=== PATIENT | male | born 1935 | race Caucasian/White ===

== ENCOUNTER 2020-01-26 12:49 | Inpatient (IN) | payer MEDICARE, BC, OTHER ==
[2020-01-26] MEDS ORDERED: Haloperidol Lactate 5 MG/ML VIAL ONE (13:29)
[2020-01-26] MEDS ORDERED: Lorazepam 2 MG/ML VIAL ONE (13:29)
[2020-01-26 14:10] LABS: #Eosinphils 0.1 thou/uL (0.0-0.7); #Lymphocytes 1.3 thou/uL (1.20-3.40); #Neutrophils 8.3 thou/uL (1.40-6.50); %Basophils 0.2 % (0.0-1.0); %Eosinophils 0.6 % (0.0-10.0); %Lymphocytes 12.5 % (21.0-51.0); %Monocytes 8.9 % (0.0-10.0); %Neutrophils 77.8 % (42.0-75.0); Hemoglobin 14.4 g/dL (14.0-18.0); Mean Corpuscular HGB CONC 35.5 g/dL (32.0-36.0); Mean Corpuscular Volume 90.3 fL (78.0-98.0); Mean Platelet Volume 7.8 fL (7.4-10.4); Platelet Count 128 thou/uL (130-400); RBC Distribution Width 11.2 % (11.5-14.5); White Blood Cell (WBC) Count 10.7 thou/uL (4.8-10.8)
--- NOTE | 2020-01-26 14:17 | CT ---
EXAM: CT brain without contrast HISTORY: Fall with altered mental status COMPARISON: 08/03/2016; MRI brain 08/03/2016 TECHNIQUE: Multiple contiguous axial images were obtained and a CT of the brain without contrast. FINDINGS: The brain is normal in morphology and attenuation without focal lesions or confluent areas of infarction. There is no evidence of hydrocephalus, intracranial hemorrhage, or extra-axial fluid collection. The calvarium and overlying soft tissues are unremarkable. The visualized paranasal sinuses and masto id air cells are well aerated. IMPRESSION: No evidence of acute intracranial abnormality
[2020-01-26 14:22] LABS: ALT (SGPT) 20 U/L (8-55); AST (SGOT) 29 U/L (5-34); Alkaline Phosphatase 71 U/L (40-110); Anion Gap 17 mmol/L (10-20); BUN (Urea Nitrogen) 26 mg/dL (8.4-25.7); Bilirubin, Total 1.7 mg/dL (0.2-1.2); CK (CPK) 522 U/L (30-200); Calc. Creatinine Clearance 0 mL/min (70-130); Calcium 9.6 mg/dL (7.8-10.44); Carbon Dioxide 19 mmol/L (23-31); Chloride 108 mmol/L (98-107); Estimated GFR-MDRD 79; Globulin 3.1 g/dL (2.4-3.5); Glucose 102 mg/dL (83-110); Lipase 18 U/L (8-78); Potassium 3.7 mmol/L (3.5-5.1); Protein, Total 7.1 g/dL (5.8-8.1); Sodium 140 mmol/L (136-145)
[2020-01-26] MEDS ORDERED: levETIRAcetam in NS 100 ML ONE (14:28)
[2020-01-26 14:48] LABS: CKMB 10.3 ng/mL (0-6.6)
--- NOTE | 2020-01-26 14:49 | RAD ---
Exam: XR Knee Lt 4 View STANDARD HISTORY: Trauma COMPARISON: Trauma FINDINGS: No acute fracture, dislocation, or other acute osseous abnormality is identified. There is a trace suprapatellar joint effusion likely physiologic in origin. Vascular calcifications are seen posterior to the knee. IMPRESSION: No acute osseous abnormality is identified.
--- NOTE | 2020-01-26 14:55 | RAD ---
EXAM: 2 views of the left hip HISTORY: Left hip pain after trauma COMPARISON: None FINDINGS: 2 views of the left hip shows no evidence of acute fracture or dislocation. No degenerative changes are seen. No soft tissue swelling is present. IMPRESSION: No evidence of acute osseous abnormality.
--- NOTE | 2020-01-26 14:55 | RAD ---
EXAM: 4 views of the right knee HISTORY: Knee pain COMPARISON: None FINDINGS: No knee effusion is seen. There is no evidence of acute fracture or dislocation. No signifi cant degenerative changes are seen. No soft tissue swelling is present. IMPRESSION: No evidence of acute osseous abnormality.
--- NOTE | 2020-01-26 14:57 | RAD ---
Exam: Single view of the pelvis HISTORY: Pelvic and hip pain after trauma COMPARISON: None FINDINGS: A single view the pelvis shows an area of lucency along the superior and inferior pubic marycruz i on the right which could represent nondisplaced fractures. No degenerative changes seen in either hip. IMPRESSION: Questionable right superior and inferior pubic rami fracture
--- NOTE | 2020-01-26 14:58 | RAD ---
EXAM: 2 views of the right hip HISTORY: Right hip pain after trauma COMPARISON: None FINDINGS: 2 views of the right hip shows lucencies extending through the right superior and inferior pubic rami consistent with acute fractures. No fracture of the right femur is seen. No degenerative changes are seen. No soft tissue swelling is present. IMPRESSION: Right superior and inferior pubic rami fractures
--- NOTE | 2020-01-26 15:00 | RAD ---
XR Chest 1 View Portable HISTORY: Altered mental status COMPARISON: 08/03/2016 FINDINGS: The heart size is normal. The aorta is tortuous. The lungs are well expanded without focal areas of consolidation, pneumothorax or pleural effusions. IMPRESSION: No radiographic evidence of acute cardiopulmonary process.
[2020-01-26] MEDS ORDERED: Morphine 4 MG/ML VIAL ONE (15:24)
[2020-01-26] MEDS ORDERED: Heparin 1,000 UNITS/ML VIAL ONE (16:09)
--- NOTE | 2020-01-26 16:21 | PDOC.HHP ---
Hospitalist HPI - History of Present Illness Altered mental status History of Present Illness: This is an 84-year-old male patient with a history of hypertension, hyperlipidemia, migraine headaches, hearing loss who was brought in by his on account of worsening mental state and frequent falls. On arrival his blood pressure was 131/64, pulse 57, oxygen saturation 100 on room air, temperature 98.2. It was noted that he had 2 episodes of witnessed seizure activity tonic-clonic in the bed for which she was given Keppra and Ativan. Postictally though he is not been communicative. His labs showed troponin of 0.038, CK was 522, BMP showed sodium 140, potassium 3.7, creatinine 0.92. Ammonia was checked was 23. CT scan of his head without contrast showed no evidence of acute intracranial process. Chest x-ray showed no acute cardial pulmonary process, x-ray of his hip revealed a right superior and inferior pubic rami fractures. He was given morphine and Haldol on account of agitation. Also received Ativan and 1 L IV fluids normal saline Orthopedic surgery was consulted for this fracture, neurology for his seizures and mental state. Hospitalist team was consulted to admit patient for Hospitalist ROS - Review of Systems ROS unobtainable: due to mental status Hospitalist History - Past Medical History Cardiac: reports: HTN DIRECTOR WOMEN: reports: Dementia - Family History Family History: reports: diabetes mellitus - Social History Smoking Status: Never smoker Alcohol: reports: None Living Situation: With Family - Exam General Appearance: ill appearing General - other findings: Patient in bed, no acute distress. Quite drowsy ENT: normocephalic atraumatic, no oropharyngeal lesions Neck: symmetric, no JVD, no thyromegaly Heart: RRR, no murmur, no gallops, no rubs Respiratory: no wheezes, no rales, no ronchi Gastrointestinal: soft, non-tender, non-distended, normal bowel sounds Extremities: no cyanosis, no clubbing, no edema Neurological - other findings: Hearing loss, spontaneously moves all limbs Psychiatric - other findings: Hard of hearing. Unable to assess orientation Hospitalist Results - Labs Result Diagrams: 01/26/20 13:25 01/26/20 13:25 Lab results: WBC 10.7 thou/uL (4.8-10.8) 01/26/20 13:25 Hgb 14.4 g/dL (14.0-18.0) 01/26/20 13:25 Hct 40.7 % (42.0-52.0) L 01/26/20 13:25 MCV 90.3 fL (78.0-98.0) 01/26/20 13:25 Plt Count 128 thou/uL (130-400) L 01/26/20 13:25 Neutrophils % 77.8 % (42.0-75.0) H 01/26/20 13:25 Sodium 140 mmol/L (136-145) 01/26/20 13:25 Potassium 3.7 mmol/L (3.5-5.1) 01/26/20 13:25 Chloride 108 mmol/L (98-107) H 01/26/20 13:25 Carbon Dioxide 19 mmol/L (23-31) L 01/26/20 13:25 BUN 26 mg/dL (8.4-25.7) H 01/26/20 13:25 Creatinine 0.92 mg/dL (0.7-1.3) 01/26/20 13:25 Glucose 102 mg/dL (83-110) 01/26/20 13:25 Calcium 9.6 mg/dL (7.8-10.44) 01/26/20 13:25 Total Bilirubin 1.7 mg/dL (0.2-1.2) H 01/26/20 13:25 AST 29 U/L (5-34) 01/26/20 13:25 ALT 20 U/L (8-55) 01/26/20 13:25 Alkaline Phosphatase 71 U/L (40-110) 01/26/20 13:25 Ammonia 26 umol/L (18-72) 01/26/20 13:25 Creatine Kinase 522 U/L (30-200) H 01/26/20 13:25 CK-MB (CK-2) 10.3 ng/mL (0-6.6) H* 01/26/20 13:25 Troponin I 0.038 ng/mL (< 0.028) H 01/26/20 13:25 B-Natriuretic Peptide 76.5 pg/mL (0-100) 01/26/20 13:25 Serum Total Protein 7.1 g/dL (5.8-8.1) 01/26/20 13:25 Albumin 4.0 g/dL (3.4-4.8) 01/26/20 13:25 Lipase 18 U/L (8-78) 01/26/20 13:25 Hospitalist H&P A/P - Plan Plan: This is an 84-year-old male patient with a history of hypertension, worsening dementia and recent falls who presented with deteriorating mental status. Acute encephalopathy Unclear etiologyworsening dementia, traumatic brain injury from fall, seizure activity. We will admit to medical floor and monitor Treat potential underlying causes Will do UA to rule out UTI Urine drug screen to rule out any clots B12 TSH ordered CT scan was negative Neurology consulted Seizure activity Unlikely with a new subtle recent trauma related. We will continue on Keppra Will need EEG Bedrest, neurochecks MRI Neuro consulted Pelvic fracture Secondary to fall Orthopedics consulted. Worsening dementia Possible Parkinson's/Alzheimer's Appreciate neurology input. CODE STATUSDNR VT prophylaxisSCD
[2020-01-26 17:45] LABS: Thyroid Stimulating Hormone 2.3213 uIU/mL (0.35-4.94)
[2020-01-26] MEDS ORDERED: levETIRAcetam in NS 1,000 MG in Premix Bag 1 BAG IVPB SCH (21:00)
[2020-01-26 21:47] LABS: Bacteria/HPF None Seen HPF (None Seen); Bilirubin Negative (Negative); Blood, Urine Trace (Negative); Clarity Clear (Clear); Glucose, Urine (Dipstick) Normal (Negative); Ketone, Urine 10 mg/dL (Negative); Leukocyte Negative Leu/uL (Negative); Nitrite Negative (Negative); Protein, Urine (Dipstick) Negative (Neg-Trace); RBC/HPF 0-3 HPF (0-3); Specific Gravity, Urine 1.019 (1.002-1.036); Squamous Epithelial None Seen HPF (0-3); Urobilinogen Normal mg/dL (Less than 2); WBC/HPF 0-3 HPF (0-3)
[2020-01-26 21:51] LABS: Urine Culture Reflex No No
[2020-01-26 21:54] LABS: Medtox Reader # READER 4
[2020-01-26 21:55] LABS: Amphetamine Not Detected (NotDetected); Barbiturates Screen Not Detected (NotDetected); Benzodiazepine Screen Detected (NotDetected); Cocaine Metabolite Screen Not Detected (NotDetected); Medtox Control Line Valid? VALID (VALID); Methadone Not Detected (NotDetected); Methamphetamine Not Detected (NotDetected); Opiate Screen Detected (NotDetected); Oxycodone Screen Not Detected (NotDetected); Phencyclidine (PCP) Not Detected (NotDetected); THC/Cannabinoid Screen Not Detected (NotDetected); Tricyclic Screen Not Detected (NotDetected)
[2020-01-27] MEDS ORDERED: Ketorolac Tromethamine 30 MG/ML VIAL IVP SCH (01:15)
[2020-01-27] MEDS: levETIRAcetam in NS 1,000 MG in Premix Bag 1 BAG IVPB SCH ×2 (01:28→15:01)
[2020-01-27] MEDS: Morphine 2 MG/ML VIAL SLOW IVP PRN ×3 (02:36→22:11)
[2020-01-27 05:29] LABS: Band 14 % (5-11); Eosinophils 1 % (0-10); Hemoglobin 12.7 g/dL (14.0-18.0); Lymphocytes 13 % (21-51); MDiff Complete? YES; Mean Corpuscular HGB CONC 34.3 g/dL (32.0-36.0); Mean Corpuscular Hemoglobin 31.2 pg (27.0-31.0); Mean Corpuscular Volume 90.9 fL (78.0-98.0); Mean Platelet Volume 8.3 fL (7.4-10.4); Monocytes 11 % (0-10); Neutrophil 61 % (42-75); Platelet Count 109 thou/uL (130-400); Platelet Morphology Comment Appears Decreased; RBC Distribution Width 11.1 % (11.5-14.5); Red Blood Cell (RBC) Count 4.07 mill/uL (4.70-6.10); White Blood Cell (WBC) Count 10.5 thou/uL (4.8-10.8)
[2020-01-27 05:35] LABS: ALT (SGPT) 17 U/L (8-55); AST (SGOT) 31 U/L (5-34); Albumin 3.2 g/dL (3.4-4.8); Alkaline Phosphatase 59 U/L (40-110); Anion Gap 12 mmol/L (10-20); BUN (Urea Nitrogen) 20 mg/dL (8.4-25.7); Bilirubin, Total 0.9 mg/dL (0.2-1.2); Calc. Creatinine Clearance 62 mL/min (70-130); Calcium 8.6 mg/dL (7.8-10.44); Carbon Dioxide 18 mmol/L (23-31); Chloride 113 mmol/L (98-107); Estimated GFR-MDRD Greater than 90; Globulin 2.4 g/dL (2.4-3.5); Glucose 84 mg/dL (83-110); Protein, Total 5.6 g/dL (5.8-8.1); Sodium 139 mmol/L (136-145)
[2020-01-27] MEDS ORDERED: FLU VACC QS2020-21(65YR UP)/PF 240 MCG/0.7 ML SYRINGE IM ONE (09:00)
--- NOTE | 2020-01-27 09:12 | CON ---
DATE OF CONSULTATION: 01/27/2020 REQUESTING PHYSICIAN: Arielist . CONSULTING PHYSICIAN: Terrence Harper MD REASON FOR CONSULTATION: Right pubic rami fractures. HISTORY OF PRESENT ILLNESS: This is an 84-year-old male, who was brought into our emergency department yesterday by way of his on account of worsening mental status and frequent falls. Upon his arrival, he had 2 witnessed seizures of tonic-clonic activity. These were new-onset seizures for him, and he was admitted to the Medicine Service for further evaluation. He was also noted to have superior and inferior pubic rami fractures on x-ray. We have been consulted for this reason. Currently at bedside, the patient has some incoherent speech. He does not answer questions and is not following commands. He appears confused. History was obtained from records today as no family is currently at bedside. PAST MEDICAL HISTORY: Hypertension, dementia. PAST SURGICAL HISTORY: Unknown. SOCIAL HISTORY: The patient is a never smoker. Does not drink alcohol. Lives with family. REVIEW OF SYSTEMS: Unobtainable. PHYSICAL EXAMINATION: CURRENT VITAL SIGNS: Include temperature of 96.4, pulse of 60, respiratory rate of 16, O2 saturation of 100% on room air, and blood pressure of 115/65. GENERAL: The patient is ill-appearing. He is in a well-padded hospital bed for seizure precautions. He is in no apparent distress. He is drowsy appearing. He does wake up to touch and voice, but does appear very confused, trying to get out of bed. HEENT: Head is normocephalic, atraumatic. NECK: Supple. Trachea is midline. LUNGS: Breathing is nonlabored. EXTREMITIES: All 4 extremities were evaluated. He is spontaneously moving all 4 extremities. He rests with his legs crossed. These were uncrossed for further evaluation. Passive range of motion of the right hip does reproduce pain in the pelvis. His pelvis is stable to pelvic rock. LABORATORY DATA: Reviewed today including a CBC shows a white blood cell count of 10.5, hemoglobin of 12.7, hematocrit of 37.0, and platelet count of 109. RADIOGRAPHIC IMAGING: Reviewed including pelvis shows evidence of nondisplaced right inferior and superior pubic rami fractures. Views of the patient's left knee demonstrate no acute findings. Views of the right knee, also no acute findings. Views of the left hip, no acute findings. ASSESSMENT: New-onset seizure activity with declining mental status and frequent falls with right superior and inferior pubic rami fractures. PLAN: At this time, nonoperative treatment will cover these pubic fractures. He may ambulate as tolerated. He may be limited by his own pain. No surgical intervention is warranted at this time. He is currently undergoing further workup for seizures and declining mental status. We would like to see him back in the clinic in 4 to 6 weeks for re-evaluation of his pelvis with new xrays. We will sign off for now. If Orthopedic is needed in the future, please re-consult. Job ID: [id number] MTDD
[2020-01-27 12:56] LABS: SARS-CoV-2 MS2 Positive; SARS-CoV-2 N Gene Negative; SARS-CoV-2 S Gene Negative; SARS-CoV-2 by NAA Not Detected (NotDetected); SARS-CoV-2 orf1ab Negative
--- NOTE | 2020-01-27 13:27 | CON ---
NEUROLOGY CONSULTATION DATE OF CONSULTATION: 01/27/2020 REASON FOR CONSULTATION: Altered mental status. HISTORY OF PRESENT ILLNESS: Mr. Ocampo is an 84-year-old male with medical history significant for hypertension, hyperlipidemia, migraine, and hearing loss, brought by the because of frequent falls and worsening mental status. On arrival to the emergency room, his blood pressure was 131/64, pulse 57, and temperature was 98.2. He had two episodes of witnessed seizure activity, tonic-clonic activity and was given Ativan and Keppra, which aborted the seizure activity. Head CT was done, which was negative for acute intracranial pathology. The patient is unable to provide the history, so history is taken with review of the medical records and also with the at bedside. Per , the patient has problems with memory and has baseline confusion since the last one year. He is not able to communicate with other family members, but she can talk to him and help him with ADLs because she can read he his mind. Mr. Ocampo is a patient of Dr. Salas and follows him in the neurology clinic. He was recently started on zonisamide, and since then, he has problems with sleeping and has became increasingly agitated and noncooperative. Per , he fell several times, and since then, there is worsening of mental status and agitation REVIEW OF SYSTEMS: Unobtainable due to mental status. MEDICAL HISTORY: Hypertension, dementia, and diabetes mellitus. FAMILY HISTORY: No family history significant for diabetes. SOCIAL HISTORY: The patient is , lives with . The denies any smoking, alcohol, or illegal drug use. PHYSICAL EXAMINATION: 163/78 72 18 General Appearance: ill appearing General - other findings: Patient in bed, no acute distress. Quite drowsy ENT: normocephalic atraumatic, no oropharyngeal lesions Neck: symmetric, no JVD, no thyromegaly Heart: RRR, no murmur, no gallops, no rubs Respiratory: no wheezes, no rales, no ronchi Gastrointestinal: soft, non-tender, non-distended, normal bowel sounds Extremities: no cyanosis, no clubbing, no edema Neurological - Mental status, the patient is extremely agitated. He does not follow commands or maintain eye contact. Cranial nerves; pupils 4 mm, round and reactive to light. Face symmetric. Tongue midline. Moves neck in both directions. Motor, muscle tone and bulk are normal. Moving all 4 extremities equally and symmetrically. Sensory, withdraws to nailbed pressure bilaterally. Cerebellar, did not cooperate with the exam. Gait deferred due to the patient's safety reason. DATA REVIEWED: I reviewed the labs. Lab results: WBC 10.7 thou/uL (4.8-10.8) 01/26/20 13:25 Hgb 14.4 g/dL (14.0-18.0) 01/26/20 13:25 Hct 40.7 % (42.0-52.0) L 01/26/20 13:25 MCV 90.3 fL (78.0-98.0) 01/26/20 13:25 Plt Count 128 thou/uL (130-400) L 01/26/20 13:25 Neutrophils % 77.8 % (42.0-75.0) H 01/26/20 13:25 Sodium 140 mmol/L (136-145) 01/26/20 13:25 Potassium 3.7 mmol/L (3.5-5.1) 01/26/20 13:25 Chloride 108 mmol/L (98-107) H 01/26/20 13:25 Carbon Dioxide 19 mmol/L (23-31) L 01/26/20 13:25 BUN 26 mg/dL (8.4-25.7) H 01/26/20 13:25 Creatinine 0.92 mg/dL (0.7-1.3) 01/26/20 13:25 Glucose 102 mg/dL (83-110) 01/26/20 13:25 Calcium 9.6 mg/dL (7.8-10.44) 01/26/20 13:25 Total Bilirubin 1.7 mg/dL (0.2-1.2) H 01/26/20 13:25 AST 29 U/L (5-34) 01/26/20 13:25 ALT 20 U/L (8-55) 01/26/20 13:25 Alkaline Phosphatase 71 U/L (40-110) 01/26/20 13:25 Ammonia 26 umol/L (18-72) 01/26/20 13:25 Creatine Kinase 522 U/L (30-200) H 01/26/20 13:25 CK-MB (CK-2) 10.3 ng/mL (0-6.6) H* 01/26/20 13:25 Troponin I 0.038 ng/mL (< 0.028) H 01/26/20 13:25 B-Natriuretic Peptide 76.5 pg/mL (0-100) 01/26/20 13:25 Serum Total Protein 7.1 g/dL (5.8-8.1) 01/26/20 13:25 Albumin 4.0 g/dL (3.4-4.8) 01/26/20 13:25 Lipase 18 U/L (8-78) 01/26/20 13:25 ASSESSMENT AND PLAN: Mr. Donavon Ocampo is an 84-year-old male with history significant for hypertension, advanced dementia, and recent falls, presented with increased agitation and multiple falls. . Altered mental status seems to be multifactorial secondary to worsening dementia versus change in medications. Consider discontinuing zonisamide since the noticed acute change after the initiation of medication. Observe seizure precautions. Ativan 2 mg IV for seizure greater than [address] reviewed, which was negative for acute intracranial pathology. Consider EEG to evaluate for cortical irritability as this will help us in adjustment of the medications. Continue Keppra 500 mg IV q.12 hours. Dose of Keppra decreased secondary to increased somnolence and agitation. Neuro checks every 4 hours. Consider MRI to rule out acute intracranial process once the patient is stable. The patient does have a pelvic fracture. Consider Orthopedic input Continue medical management per primary team. We will continue to follow. Thank you for the consult. Plan discussed in detail with the patient's and also with the nursing staff. Job ID: [id number] [facility]
[2020-01-27] MEDS ORDERED: Lorazepam 2 MG/ML VIAL SLOW IVP SCH (14:45)
--- NOTE | 2020-01-27 14:47 | PDOC.EEG ---
Neurology EEG Report - Report Report: This EEG was performed using 24 channel [employer] video digital EEG machine with 24 disc electrodes. This was an extended 2 hours 4 minutes of EEG recording. Digital analysis of the EEG was done for Joshua and seizure detection which revealed no abnormalities. Background: The posterior background rhythm was not observed. Photic stimulation: No response seen with photic stimulation. Hyperventilation: Not performed. Sleep: No stage change was observed. EEG diagnosis: Generalized irregular theta activity seen throughout the recording. Absence of posterior background rhythm. Clinical interpretation: This EEG is consistent with moderate generalized nonspecific cerebral dys function.
--- NOTE | 2020-01-27 16:46 | MRI ---
MRI BRAIN WITHOUT CONTRAST: HISTORY: Acute encephalopathy COMPARISON: 08/03/2016 FINDINGS: No restricted diffusion is seen. There is age-appropriate volume loss. The ventricular size is approp riate and the basilar cisterns are patent. No evidence of acute infarct, hemorrhage, midline shift or abnormal extra-axial fluid collections is seen. There is mucosal disease in the paranasal sinuses. IMPRESSION: No evidence of acute intracranial process.
--- NOTE | 2020-01-27 19:10 | PDOC.HOSPP ---
- Subjective Encounter Date: 01/27/20 Encounter Time: 19:00 Subjective: f/u for recent fall and seizure activity with R superior/inferior pubic rami fx managed non-operatively. Receiving Keppra IV and no recurrent seizures. EEG showed no acute seizure activity. - Objective Vital Signs & Weight: Vital Signs (12 hours) Temp Pulse Resp BP Pulse Ox 01/27/20 15:36 98 F 70 20 150/74 H 94 L 01/27/20 12:32 98.4 F 72 16 163/78 H 95 01/27/20 08:00 98.4 F 64 16 158/79 H 100 Weight Admit Weight 131 lb 9.6 oz Weight 131 lb 9.6 oz I&O: 01/26/20 01/27/20 01/28/20 06:59 06:59 06:59 Intake Total 0 Balance 0 Result Diagrams: 01/27/20 04:29 01/27/20 04:29 Additional Labs: Laboratory Tests 01/26/20 01/26/20 01/26/20 13:25 13:25 13:25 Hgb 14.4 Ammonia Troponin I 0.038 H B-Natriuretic Peptide 76.5 Vitamin B12 TSH 3rd Generation Prolactin Urine Opiates Screen U Benzodiazepines Scrn SARS-CoV-2 (PCR) 01/26/20 01/26/20 01/26/20 13:25 13:25 13:25 Hgb Ammonia 26 Troponin I B-Natriuretic Peptide Vitamin B12 TSH 3rd Generation 2.4095 Prolactin 8.95 Urine Opiates Screen U Benzodiazepines Scrn SARS-CoV-2 (PCR) 01/26/20 01/26/20 01/26/20 13:25 17:21 21:13 Hgb Ammonia Troponin I B-Natriuretic Peptide Vitamin B12 284 TSH 3rd Generation Prolactin Urine Opiates Screen Detected H U Benzodiazepines Scrn Detected H SARS-CoV-2 (PCR) Not Detected Radiology Reviewed by me: Yes (MRI brain - no acute process) EKG Reviewed by me: Yes (Tele - SR) Hospitalist ROS - Medication Medications: Active Medications Generic Name Dose Route Start Last Admin Trade Name Freq PRN Reason Stop Dose Admin Lorazepam 1 mg 01/27/20 14:45 01/27/20 15:50 Lorazepam 2 Mg/Ml Vial SLOW IVP 01/28/20 14:46 1 mg WILLCALL SANTI Administration Morphine Sulfate 2 mg 01/27/20 02:22 01/27/20 13:03 Morphine 2 Mg/Ml Vial SLOW IVP 2 mg Q4H PRN Administration Pain - Exam General - other findings: somnolent Eye: PERRL, anicteric sclera ENT: normocephalic atraumatic, no oropharyngeal lesions Neck: supple, symmetric, no JVD, no thyromegaly, no lymphadenopathy Heart: RRR, no gallops, no rubs, normal peripheral pulses Heart - other findings: S1, S2 Respiratory: CTAB, no wheezes, no rales, no ronchi, normal chest expansion Gastrointestinal: soft, non-tender, non-distended, normal bowel sounds, no pal pable masses Extremities: no cyanosis, no clubbing, no edema Skin: normal turgor Neurological - other findings: spontaneous movement of extremities Musculoskeletal: generalized weakness Psychiatric: oriented to person, flat affect, somnolent, lethargic Hosp A/P (1) Seizures Code(s): R56.9 - UNSPECIFIED CONVULSIONS Status: Acute Plan: Continue Keppra 500mg IV BID, monitor for breakthrough seizures, EEG showed no acute seizure activity (2) Acute metabolic encephalopathy Code(s): G93.41 - METABOLIC ENCEPHALOPATHY Status: Acute Plan: Likely multifactorial, supportive mgmt with family, sitter PRN (3) Pelvic fracture Code(s): S32.9XXA - FRACTURE OF UNSP PARTS OF LUMBOSACRAL SPINE AND PELVIS, INIT Status: Acute Qualifiers: Encounter type: subsequent encounter Pelvic bone location: pubis Fracture type: closed Laterality: right Plan: Pain control, RW for ambulation and CGA, non-operative mgmt, outpt Ortho follow up (4) Dementia Code(s): F03.90 - UNSPECIFIED DEMENTIA WITHOUT BEHAVIORAL DISTURBANCE Status: Chronic Qualifiers: Dementia type: Alzheimer's disease Plan: Supportive mgmt, home supervision by family - Plan PT/OT, certified social workers in health care, speech therapy, out of bed/ambulate, DVT proph w/SCDs Stable currently Continue Keppra OOB with PT ? SNF vs Rehab D5NS @ 100ml/h AM lab:
[2020-01-27] MEDS: Clopidogrel Bisulfate 75 MG TAB PO SCH (22:12)
[2020-01-27] MEDS: levETIRAcetam in NS 500 MG in Premix Bag 1 BAG IVPB SCH (22:12)
[2020-01-27] MEDS: Dextrose 5 % And 0.9 % NaCl 1,000 ML IV SCH (22:12)
[2020-01-28 05:00] LABS: #Eosinphils 0.2 thou/uL (0.0-0.7); #Lymphocytes 1.1 thou/uL (1.20-3.40); #Monocytes 0.7 thou/uL (0.11-0.59); #Neutrophils 5.8 thou/uL (1.40-6.50); %Basophils 0.2 % (0.0-1.0); %Lymphocytes 13.9 % (21.0-51.0); %Monocytes 9.4 % (0.0-10.0); %Neutrophils 74.6 % (42.0-75.0); Hemoglobin 13.4 g/dL (14.0-18.0); Mean Corpuscular HGB CONC 35.3 g/dL (32.0-36.0); Mean Corpuscular Hemoglobin 31.8 pg (27.0-31.0); Mean Corpuscular Volume 90.2 fL (78.0-98.0); Mean Platelet Volume 7.4 fL (7.4-10.4); Platelet Count 131 thou/uL (130-400); Red Blood Cell (RBC) Count 4.21 mill/uL (4.70-6.10); White Blood Cell (WBC) Count 7.8 thou/uL (4.8-10.8)
[2020-01-28 05:18] LABS: Anion Gap 11 mmol/L (10-20); BUN (Urea Nitrogen) 21 mg/dL (8.4-25.7); Calc. Creatinine Clearance 67 mL/min (70-130); Calcium 8.7 mg/dL (7.8-10.44); Carbon Dioxide 21 mmol/L (23-31); Chloride 110 mmol/L (98-107); Estimated GFR-MDRD Greater than 90; Glucose 116 mg/dL (83-110); Potassium 4.1 mmol/L (3.5-5.1); Sodium 138 mmol/L (136-145)
[2020-01-28] MEDS ORDERED: Temazepam 15 MG CAP PO PRN (09:53)
[2020-01-28] MEDS: levETIRAcetam in NS 500 MG in Premix Bag 1 BAG IVPB SCH ×2 (09:53→21:30)
[2020-01-28] MEDS: Dextrose 5 % And 0.9 % NaCl 1,000 ML IV SCH (11:31)
--- NOTE | 2020-01-28 13:02 | PDOC.NEUPN ---
- Subjective Encounter Date: 01/28/20 Subjective: Mr. Ocampo continues to be confused and unable to follow commands. No seizures since admission. EEG negative and MRI of the brain is also negative. - Objective Vital Signs & Weight: Vital Signs (12 hours) Temp Pulse Resp BP Pulse Ox 01/28/20 11:46 97.9 F 63 18 148/79 H 98 01/28/20 08:00 98.3 F 63 20 150/70 H 100 01/28/20 04:43 97.7 F 68 14 155/90 H 99 Weight Admit Weight 131 lb 9.6 oz Weight 131 lb 9.6 oz I&O: 01/27/20 01/28/20 01/29/20 06:59 06:59 06:59 Intake Total 0 Balance 0 Result Diagrams: 01/28/20 04:37 01/28/20 04:37 Radiology Reviewed by me: Yes EKG Reviewed by me: Yes ROS - Review of Systems ROS unobtainable: due to mental status - Medication Medications: Active Medications Generic Name Dose Route Start Last Admin Trade Name Freq PRN Reason Stop Dose Admin Clopidogrel Bisulfate 75 mg 01/27/20 21:00 01/27/20 22:12 Clopidogrel Bisulfate 75 Mg Tab PO Not Given HS SANTI Levetiracetam 500 mg/ Device 100 mls @ 200 mls/hr 01/27/20 21:00 01/28/20 09:53 IVPB 100 mls BID SANTI Administration Lorazepam 1 mg 01/27/20 14:45 01/27/20 15:50 Lorazepam 2 Mg/Ml Vial SLOW IVP 01/28/20 14:46 1 mg WILLCALL SANTI Administration Morphine Sulfate 2 mg 01/27/20 02:22 01/27/20 22:11 Morphine 2 Mg/Ml Vial SLOW IVP 2 mg Q4H PRN Administration Pain - Exam General Appearance: ill appearing Eye: PERRL ENT: normocephalic atraumatic Neck: supple Respiratory: CTAB Cardiovascular: RRR Gastrointestinal: soft Extremities: no cyanosis Skin: normal turgor Neurological: no new deficit Musculoskeletal: generalized weakness PSYCH: not oriented Results - Labs Result Diagrams: 01/28/20 04:37 01/28/20 04:37 Lab results: WBC 7.8 thou/uL (4.8-10.8) 01/28/20 04:37 Hgb 13.4 g/dL (14.0-18.0) L 01/28/20 04:37 Hct 38.0 % (42.0-52.0) L 01/28/20 04:37 MCV 90.2 fL (78.0-98.0) 01/28/20 04:37 Plt Count 131 thou/uL (130-400) 01/28/20 04:37 Neutrophils % 74.6 % (42.0-75.0) 01/28/20 04:37 Band Neuts % (Manual) 14 % (5-11) H 01/27/20 04:29 Sodium 138 mmol/L (136-145) 01/28/20 04:37 Potassium 4.1 mmol/L (3.5-5.1) 01/28/20 04:37 Chloride 110 mmol/L (98-107) H 01/28/20 04:37 Carbon Dioxide 21 mmol/L (23-31) L 01/28/20 04:37 BUN 21 mg/dL (8.4-25.7) 01/28/20 04:37 Creatinine 0.72 mg/dL (0.7-1.3) 01/28/20 04:37 Glucose 116 mg/dL (83-110) H 01/28/20 04:37 Calcium 8.7 mg/dL (7.8-10.44) 01/28/20 04:37 Total Bilirubin 0.9 mg/dL (0.2-1.2) 01/27/20 04:29 AST 31 U/L (5-34) 01/27/20 04:29 ALT 17 U/L (8-55) 01/27/20 04:29 Alkaline Phosphatase 59 U/L (40-110) 01/27/20 04:29 Ammonia 26 umol/L (18-72) 01/26/20 13:25 Creatine Kinase 522 U/L (30-200) H 01/26/20 13:25 CK-MB (CK-2) 10.3 ng/mL (0-6.6) H* 01/26/20 13:25 Troponin I 0.038 ng/mL (< 0.028) H 01/26/20 13:25 B-Natriuretic Peptide 76.5 pg/mL (0-100) 01/26/20 13:25 Serum Total Protein 5.6 g/dL (5.8-8.1) L 01/27/20 04:29 Albumin 3.2 g/dL (3.4-4.8) L 01/27/20 04:29 Lipase 18 U/L (8-78) 01/26/20 13:25 Urine Ketones 10 mg/dL (Negative) A 01/26/20 21:13 Urine Blood Trace (Negative) A 01/26/20 21:13 Urine Nitrite Negative (Negative) 01/26/20 21:13 Ur Leukocyte Esterase Negative Jesus/uL (Negative) 01/26/20 21:13 Urine RBC 0-3 HPF (0-3) 01/26/20 21:13 Urine WBC 0-3 HPF (0-3) 01/26/20 21:13 Ur Squamous Epith Cells None Seen HPF (0-3) 01/26/20 21:13 Urine Bacteria None Seen HPF (None Seen) 01/26/20 21:13 - Radiology Interpretation Other Status: image reviewed by me, report reviewed by me Additional Comment: MRI of the brain did not reveal acute intracranial pathology PN A/P - Plan Daily Plan: PT/OT, speech therapy, DVT proph w/SCDs Mr. Ocampo is a 84-year-old male who presented with with seizures s/p fall. He also has history of dementia and continues to to have altered mental status. Altered mental status seems to be multifactorial but most likely secondary to advanced dementia with superimposed delirium. MRI of the brain reviewed which was negative for acute intracranial pathology. EEG reviewed which was negative for seizure activity. Neurochecks every 4 hours. Telemetry Continue Keppra 500 mg IV every 12 hours. Observe seizure precautions. Ativan 2 mg IV for seizure greater than 2 minutes Continue home medications. Right pubic rami fracturessurgery on board N.p.o. till cleared by speech. PT/OT/speech. Continue medical management per primary team. Case management on board regarding discharge planning. Plan discussed during MDR rounds.
[2020-01-28] MEDS: Morphine 2 MG/ML VIAL SLOW IVP PRN ×2 (15:14→21:31)
[2020-01-28] MEDS: Ziprasidone 20 MG VIAL IM PRN (16:30)
[2020-01-28 22:33] LABS: Anion Gap 14 mmol/L (10-20); Carbon Dioxide 23 mmol/L (23-31); Chloride 106 mmol/L (98-107); Magnesium 1.8 mg/dL (1.6-2.6); Potassium 3.6 mmol/L (3.5-5.1); Sodium 139 mmol/L (136-145)
[2020-01-29] MEDS: Rosuvastatin 10 MG TAB PO SCH ×2 (00:53→20:32)
[2020-01-29] MEDS: Clopidogrel Bisulfate 75 MG TAB PO SCH ×2 (00:53→20:32)
[2020-01-29] MEDS: clonazePAM 0.5 MG TAB PO SCH ×2 (00:53→20:32)
[2020-01-29 05:23] LABS: #Basophils 0.1 thou/uL (0.0-0.2); #Eosinphils 0.2 thou/uL (0.0-0.7); #Lymphocytes 1.1 thou/uL (1.20-3.40); #Monocytes 0.9 thou/uL (0.11-0.59); #Neutrophils 5.3 thou/uL (1.40-6.50); %Basophils 0.8 % (0.0-1.0); %Eosinophils 2.5 % (0.0-10.0); %Lymphocytes 14.9 % (21.0-51.0); %Monocytes 11.9 % (0.0-10.0); %Neutrophils 69.9 % (42.0-75.0); Hemoglobin 14.4 g/dL (14.0-18.0); Mean Corpuscular HGB CONC 35.2 g/dL (32.0-36.0); Mean Corpuscular Hemoglobin 31.8 pg (27.0-31.0); Mean Corpuscular Volume 90.4 fL (78.0-98.0); Mean Platelet Volume 7.6 fL (7.4-10.4); Platelet Count 139 thou/uL (130-400); RBC Distribution Width 11.1 % (11.5-14.5); Red Blood Cell (RBC) Count 4.53 mill/uL (4.70-6.10); White Blood Cell (WBC) Count 7.5 thou/uL (4.8-10.8)
[2020-01-29 05:45] LABS: Chloride 110 mmol/L (98-107); Potassium 4.4 mmol/L (3.5-5.1); Sodium 137 mmol/L (136-145)
[2020-01-29 05:46] LABS: Calcium 8.8 mg/dL (7.8-10.44); Glucose 84 mg/dL (83-110)
[2020-01-29 05:48] LABS: Carbon Dioxide 14 mmol/L (23-31)
[2020-01-29 05:50] LABS: Calc. Creatinine Clearance 64 mL/min (70-130); Estimated GFR-MDRD Greater than 90
[2020-01-29 05:51] LABS: BUN (Urea Nitrogen) 17 mg/dL (8.4-25.7)
[2020-01-29 06:02] LABS: Anion Gap 17 mmol/L (10-20)
--- NOTE | 2020-01-29 07:40 | PDOC.HOSPP ---
- Subjective Encounter Date: 01/28/20 Encounter Time: 11:30 Subjective: pt up in bed confused. at bedside. - Objective Vital Signs & Weight: Vital Signs (12 hours) Temp Pulse Resp BP Pulse Ox 01/29/20 04:00 97 F L 60 14 146/67 H 98 01/28/20 23:34 97.7 F 60 16 134/65 100 01/28/20 21:07 169/118 H Weight Admit Weight 131 lb 9.6 oz Weight 131 lb 9.6 oz I&O: 01/28/20 01/29/20 01/30/20 06:59 06:59 05:59 Intake Total 0 120 Balance 0 120 Result Diagrams: 01/29/20 05:03 01/29/20 05:03 Hospitalist ROS - Review of Systems Other: confused - Medication Medications: Active Medications Generic Name Dose Route Start Last Admin Trade Name Freq PRN Reason Stop Dose Admin Clonazepam 0.5 mg 01/28/20 21:00 01/29/20 00:53 Clonazepam 0.5 Mg Tab PO Not Given HS SANTI Clopidogrel Bisulfate 75 mg 01/27/20 21:00 01/29/20 00:53 Clopidogrel Bisulfate 75 Mg Tab PO Not Given HS SANTI Levetiracetam 500 mg/ Device 100 mls @ 200 mls/hr 01/27/20 21:00 01/28/20 21:30 IVPB 100 mls BID SANTI Administration Morphine Sulfate 2 mg 01/27/20 02:22 01/28/20 21:31 Morphine 2 Mg/Ml Vial SLOW IVP 2 mg Q4H PRN Administration Pain Rosuvastatin Calcium 10 mg 01/28/20 21:00 01/29/20 00:53 Rosuvastatin 10 Mg Tab PO Not Given HS SANTI Sodium Chloride 10 ml 01/28/20 21:00 01/29/20 00:53 Flush - Normal Saline 10 Ml Syringe IVF Not Given Q12HR SANTI Ziprasidone 10 mg 01/28/20 16:08 01/28/20 16:30 Ziprasidone 20 Mg Vial IM 10 mg Q2H PRN Administration Agitation - Exam Neck: negative: supple, symmetric, no JVD, no thyromegaly, no lymphadenopathy, no carotid bruit, JVD Heart: negative: RRR, no murmur, no gallops, no rubs, normal peripheral pulses, irregular, diminshed peripheral pulses, murmur present, II/IV, III/IV Respiratory: negative: CTAB, no wheezes, no rales, no ronchi, normal chest expansion, no tachypnea, normal percussion, rales, rhonchi, tachypneic, wheezes Gastrointestinal: negative: soft, non-tender, non-distended, normal bowel sounds, no palpable masses, no hepatomegaly, no splenomegaly, no bruit, no guarding, no rigidity, tender to palpation, distended, diminished bowl sounds, voluntary guarding Hosp A/P (1) Acute metabolic encephalopathy Code(s): G93.41 - METABOLIC ENCEPHALOPATHY Status: Acute (2) Pelvic fracture Code(s): S32.9XXA - FRACTURE OF UNSP PARTS OF LUMBOSACRAL SPINE AND PELVIS, INIT Status: Acute Qualifiers: Encounter type: subsequent encounter Pelvic bone location: pubis Fracture type: closed Laterality: right (3) Seizures Code(s): R56.9 - UNSPECIFIED CONVULSIONS Status: Acute (4) Dementia Code(s): F03.90 - UNSPECIFIED DEMENTIA WITHOUT BEHAVIORAL DISTURBANCE Status: Chronic Qualifiers: Dementia type: Alzheimer's disease (5) HLD (hyperlipidemia) Code(s): E78.5 - HYPERLIPIDEMIA, UNSPECIFIED Status: Chronic (6) HTN (hypertension) Code(s): I10 - ESSENTIAL (PRIMARY) HYPERTENSION Status: Chronic Qualifiers: Hypertension type: essential hypertension Qualified Code(s): I10 - Essential (primary) hypertension - Plan pt up in bed confused. pt's states that patient was recently put on zonisamide. Patient's states that once he took the medication he started acting strange. Will discontinue zonisamide for now. Patient's UA and chest x- ray does not show any acute abnormalities. He does have a pubic rami fracture. Ortho has evaluated him no acute interventions required. Patient will require care home facility. Patient's brain MRI negative for stroke.
[2020-01-29] MEDS ORDERED: Zonisamide 100 MG CAP PO SCH (09:00)
[2020-01-29] MEDS: levETIRAcetam in NS 500 MG in Premix Bag 1 BAG IVPB SCH ×2 (09:41→20:32)
[2020-01-29] MEDS: Ziprasidone 20 MG VIAL IM PRN ×2 (12:10→18:42)
[2020-01-29] MEDS: Morphine 2 MG/ML VIAL SLOW IVP PRN (13:33)
--- NOTE | 2020-01-29 13:59 | PDOC.HOSPP ---
- Subjective Encounter Date: 01/29/20 Encounter Time: 08:30 Subjective: Patient seen for follow-up regarding acute metabolic encephalopathy. Sleepy but arousable, falling asleep right away, could not complete review of systems. - Objective Vital Signs & Weight: Vital Signs (12 hours) Temp Pulse Resp BP Pulse Ox 01/29/20 11:23 96.6 F L 72 18 158/87 H 99 01/29/20 04:00 97 F L 60 14 146/67 H 98 Weight Admit Weight 131 lb 9.6 oz Weight 131 lb 9.6 oz I&O: 01/28/20 01/29/20 01/30/20 06:59 06:59 05:59 Intake Total 0 120 Balance 0 120 Result Diagrams: 01/29/20 05:03 01/29/20 05:03 Additional Labs: Labs and MAR reviewed by me EKG Reviewed by me: Yes (Telemetry: NSR) Hospitalist ROS - Review of Systems ROS unobtainable: due to mental status - Medication Medications: Active Medications Generic Name Dose Route Start Last Admin Trade Name Freq PRN Reason Stop Dose Admin Clonazepam 0.5 mg 01/28/20 21:00 01/29/20 00:53 Clonazepam 0.5 Mg Tab PO Not Given HS SANTI Clopidogrel Bisulfate 75 mg 01/27/20 21:00 01/29/20 00:53 Clopidogrel Bisulfate 75 Mg Tab PO Not Given HS SANTI Levetiracetam 500 mg/ Device 100 mls @ 200 mls/hr 01/27/20 21:00 01/29/20 09:41 IVPB 100 mls BID SANTI Administration Morphine Sulfate 2 mg 01/27/20 02:22 01/29/20 13:33 Morphine 2 Mg/Ml Vial SLOW IVP 2 mg Q4H PRN Administration Pain Rosuvastatin Calcium 10 mg 01/28/20 21:00 01/29/20 00:53 Rosuvastatin 10 Mg Tab PO Not Given HS SANTI Sodium Chloride 10 ml 01/28/20 21:00 01/29/20 09:42 Flush - Normal Saline 10 Ml Syringe IVF 10 ml Q12HR SANTI Administration Ziprasidone 10 mg 01/28/20 16:08 01/29/20 12:10 Ziprasidone 20 Mg Vial IM 10 mg Q2H PRN Administration Agitation - Exam ENT: normocephalic atraumatic, moist mucosa Neck: supple Heart: RRR Respiratory: CTAB Gastrointestinal: soft, non-tender Skin: no rashes Psychiatric - other findings: Unable to assess Hosp A/P - Plan -Assessment (1) Acute metabolic encephalopathy Code(s): G93.41 - METABOLIC ENCEPHALOPATHY Status: Acute (2) Pelvic fracture Code(s): S32.9XXA - FRACTURE OF UNSP PARTS OF LUMBOSACRAL SPINE AND PELVIS, INIT Status: Acute Qualifiers: Encounter type: subsequent encounter Pelvic bone location: pubis Fracture type: closed Laterality: right (3) Seizures Code(s): R56.9 - UNSPECIFIED CONVULSIONS Status: Acute (4) Dementia Code(s): F03.90 - UNSPECIFIED DEMENTIA WITHOUT BEHAVIORAL DISTURBANCE Status: Chronic Qualifiers: Dementia type: Alzheimer's disease (5) HLD (hyperlipidemia) Code(s): E78.5 - HYPERLIPIDEMIA, UNSPECIFIED Status: Chronic (6) HTN (hypertension) Code(s): I10 - ESSENTIAL (PRIMARY) HYPERTENSION Status: Chronic Qualifiers: Hypertension type: essential hypertension Qualified Code(s): I10 - Essential (primary) hypertension - Plan Zonisamide was discontinued. No evidence of infection to account for acute metabolic encephalopathy. No surgical intervention for pubic rami fracture. Patient will require half-way facility. No evidence of stroke on MRI brain.
[2020-01-29] MEDS ORDERED: Labetalol HCl 100 MG/20 ML VIAL SLOW IVP SCH (20:00)
[2020-01-30] MEDS: Morphine 2 MG/ML VIAL SLOW IVP PRN (03:48)
[2020-01-30] MEDS: levETIRAcetam in NS 500 MG in Premix Bag 1 BAG IVPB SCH ×2 (08:27→20:04)
[2020-01-30] MEDS: Ziprasidone 20 MG VIAL IM PRN ×2 (11:10→18:39)
--- NOTE | 2020-01-30 12:11 | PDOC.NEUPN ---
- Subjective Encounter Date: 01/30/20 Subjective: Patient alert awake and working with a therapist. He knows his name Casey. - Objective Vital Signs & Weight: Vital Signs (12 hours) Temp Pulse Resp BP Pulse Ox 01/30/20 11:04 97.7 F 77 20 132/64 96 01/30/20 08:25 98 01/30/20 07:09 98.0 F 63 16 113/63 98 01/30/20 04:05 97.5 F L 69 16 132/66 97 Weight Admit Weight 131 lb 9.6 oz Weight 131 lb 9.6 oz I&O: 01/29/20 01/30/20 01/31/20 07:59 06:59 06:59 Intake Total Balance Result Diagrams: 01/29/20 05:03 01/29/20 05:03 Radiology Reviewed by me: Yes EKG Reviewed by me: Yes ROS - Review of Systems ROS unobtainable: due to mental status - Medication Medications: Active Medications Generic Name Dose Route Start Last Admin Trade Name Freq PRN Reason Stop Dose Admin Clonazepam 0.5 mg 01/28/20 21:00 01/29/20 20:32 Clonazepam 0.5 Mg Tab PO Not Given HS SANTI Clopidogrel Bisulfate 75 mg 01/27/20 21:00 01/29/20 20:32 Clopidogrel Bisulfate 75 Mg Tab PO Not Given HS SANTI Levetiracetam 500 mg/ Device 100 mls @ 200 mls/hr 01/27/20 21:00 01/30/20 08:27 IVPB 100 mls BID SANTI Administration Morphine Sulfate 2 mg 01/27/20 02:22 01/30/20 03:48 Morphine 2 Mg/Ml Vial SLOW IVP 2 mg Q4H PRN Administration Pain Rosuvastatin Calcium 10 mg 01/28/20 21:00 01/29/20 20:32 Rosuvastatin 10 Mg Tab PO Not Given HS SANTI Sodium Chloride 10 ml 01/28/20 21:00 01/30/20 08:30 Flush - Normal Saline 10 Ml Syringe IVF 10 ml Q12HR SANTI Administration Ziprasidone 10 mg 01/28/20 16:08 01/30/20 11:10 Ziprasidone 20 Mg Vial IM 10 mg Q2H PRN Administration Agitation - Exam General Appearance: awake alert Eye: PERRL ENT: normocephalic atraumatic Neck: supple Respiratory: CTAB Cardiovascular: RRR Gastrointestinal: soft Extremities: no cyanosis Skin: normal turgor Neurological: no new deficit Musculoskeletal: normal tone, normal strength, no muscle wasting PSYCH: normal affect, oriented to person Results - Labs Result Diagrams: 01/29/20 05:03 01/29/20 05:03 Lab results: WBC 7.5 thou/uL (4.8-10.8) 01/29/20 05:03 Hgb 14.4 g/dL (14.0-18.0) 01/29/20 05:03 Hct 40.9 % (42.0-52.0) L 01/29/20 05:03 MCV 90.4 fL (78.0-98.0) 01/29/20 05:03 Plt Count 139 thou/uL (130-400) 01/29/20 05:03 Neutrophils % 69.9 % (42.0-75.0) 01/29/20 05:03 Band Neuts % (Manual) 14 % (5-11) H 01/27/20 04:29 Sodium 137 mmol/L (136-145) 01/29/20 05:03 Potassium 4.4 mmol/L (3.5-5.1) 01/29/20 05:03 Chloride 110 mmol/L (98-107) H 01/29/20 05:03 Carbon Dioxide 14 mmol/L (23-31) L 01/29/20 05:03 BUN 17 mg/dL (8.4-25.7) 01/29/20 05:03 Creatinine 0.75 mg/dL (0.7-1.3) 01/29/20 05:03 Glucose 84 mg/dL (83-110) 01/29/20 05:03 Calcium 8.8 mg/dL (7.8-10.44) 01/29/20 05:03 Total Bilirubin 0.9 mg/dL (0.2-1.2) 01/27/20 04:29 AST 31 U/L (5-34) 01/27/20 04:29 ALT 17 U/L (8-55) 01/27/20 04:29 Alkaline Phosphatase 59 U/L (40-110) 01/27/20 04:29 Ammonia 26 umol/L (18-72) 01/26/20 13:25 Creatine Kinase 522 U/L (30-200) H 01/26/20 13:25 CK-MB (CK-2) 10.3 ng/mL (0-6.6) H* 01/26/20 13:25 Troponin I 0.038 ng/mL (< 0.028) H 01/26/20 13:25 B-Natriuretic Peptide 76.5 pg/mL (0-100) 01/26/20 13:25 Serum Total Protein 5.6 g/dL (5.8-8.1) L 01/27/20 04:29 Albumin 3.2 g/dL (3.4-4.8) L 01/27/20 04:29 Lipase 18 U/L (8-78) 01/26/20 13:25 Urine Ketones 10 mg/dL (Negative) A 01/26/20 21:13 Urine Blood Trace (Negative) A 01/26/20 21:13 Urine Nitrite Negative (Negative) 01/26/20 21:13 Ur Leukocyte Esterase Negative Jesus/uL (Negative) 01/26/20 21:13 Urine RBC 0-3 HPF (0-3) 01/26/20 21:13 Urine WBC 0-3 HPF (0-3) 01/26/20 21:13 Ur Squamous Epith Cells None Seen HPF (0-3) 01/26/20 21:13 Urine Bacteria None Seen HPF (None Seen) 01/26/20 21:13 - Radiology Interpretation MRI - head Status: image reviewed by me, report reviewed by me Additional Comment: MRI brain did not reveal acute intracranial pathology PN A/P (1) Seizures Code(s): R56.9 - UNSPECIFIED CONVULSIONS Status: Acute (2) Dementia Code(s): F03.90 - UNSPECIFIED DEMENTIA WITHOUT BEHAVIORAL DISTURBANCE Status: Chronic Qualifiers: Dementia type: Alzheimer's disease (3) Encephalopathy acute Code(s): G93.40 - ENCEPHALOPATHY, UNSPECIFIED Status: Acute (4) Migraine Code(s): G43.909 - MIGRAINE, UNSP, NOT INTRACTABLE, WITHOUT STATUS MIGRAINOSUS Status: Acute (5) Vertigo Code(s): R42 - DIZZINESS AND GIDDINESS Status: Acute (6) HLD (hyperlipidemia) Code(s): E78.5 - HYPERLIPIDEMIA, UNSPECIFIED Status: Chronic (7) HTN (hypertension) Code(s): I10 - ESSENTIAL (PRIMARY) HYPERTENSION Status: Chronic Qualifiers: Hypertension type: essential hypertension Qualified Code(s): I10 - Essential (primary) hypertension - Plan Daily Plan: PT/OT, speech therapy, out of bed/ambulate, DVT proph w/SCDs Mr. Ocampo is a 84-year-old male who presented with with seizures s/p fall. He also has history of dementia and continues to to have altered mental status. Altered mental status seems to be multifactorial but most likely secondary to advanced dementia with superimposed delirium. Zonisamide discontinued which may have exacerbated the altered mental status per . MRI of the brain reviewed which was negative for acute intracranial pathology. EEG reviewed which was negative for seizure activity. Neurochecks every 4 hours. Telemetry Continue Keppra 500 mg IV every 12 hours. Observe seizure precautions. Ativan 2 mg IV for seizure greater than 2 minutes Continue home medications. Right pubic rami fracturessurgery on board N.p.o. till cleared by speech. PT/OT/speech. Continue medical management per primary team. Case management on board regarding discharge planning. Plan discussed in detail with the nursing staff
--- NOTE | 2020-01-30 16:51 | PDOC.HOSPP ---
- Subjective Encounter Date: 01/30/20 Encounter Time: 10:00 Subjective: Patient seen for follow-up regarding acute metabolic encephalopathy. He continues to be sleepy review of systems could not be completed. - Objective Vital Signs & Weight: Vital Signs (12 hours) Temp Pulse Pulse Pulse Resp BP BP 01/30/20 15:02 96.9 F L 74 16 01/30/20 11:04 97.7 F 77 20 01/30/20 09:00 78 72 115/78 129/65 01/30/20 08:25 01/30/20 07:09 98.0 F 63 16 BP Pulse Ox 01/30/20 15:02 143/86 H 99 01/30/20 11:04 132/64 96 01/30/20 09:00 01/30/20 08:25 98 01/30/20 07:09 113/63 98 Weight Admit Weight 131 lb 9.6 oz Weight 131 lb 9.6 oz I&O: 01/29/20 01/30/20 01/31/20 07:59 06:59 06:59 Intake Total Balance Result Diagrams: 01/29/20 05:03 01/29/20 05:03 Additional Labs: I reviewed patient's labs and MAR EKG Reviewed by me: Yes (Telemetry: NSR) Hospitalist ROS - Review of Systems ROS unobtainable: due to mental status - Medication Medications: Active Medications Generic Name Dose Route Start Last Admin Trade Name Freq PRN Reason Stop Dose Admin Clonazepam 0.5 mg 01/28/20 21:00 01/29/20 20:32 Clonazepam 0.5 Mg Tab PO Not Given HS SANTI Clopidogrel Bisulfate 75 mg 01/27/20 21:00 01/29/20 20:32 Clopidogrel Bisulfate 75 Mg Tab PO Not Given HS SANTI Levetiracetam 500 mg/ Device 100 mls @ 200 mls/hr 01/27/20 21:00 01/30/20 08:27 IVPB 100 mls BID SANTI Administration Morphine Sulfate 2 mg 01/27/20 02:22 01/30/20 03:48 Morphine 2 Mg/Ml Vial SLOW IVP 2 mg Q4H PRN Administration Pain Rosuvastatin Calcium 10 mg 01/28/20 21:00 01/29/20 20:32 Rosuvastatin 10 Mg Tab PO Not Given HS SANTI Sodium Chloride 10 ml 01/28/20 21:00 01/30/20 08:30 Flush - Normal Saline 10 Ml Syringe IVF 10 ml Q12HR SANTI Administration Ziprasidone 10 mg 01/28/20 16:08 01/30/20 11:10 Ziprasidone 20 Mg Vial IM 10 mg Q2H PRN Administration Agitation - Exam General Appearance: awake alert Eye: anicteric sclera ENT: moist mucosa Neck: supple Heart: RRR Respiratory: CTAB Gastrointestinal: soft, non-tender Extremities: no edema Skin: no rashes Neurological: cranial nerve grossly intact Psychiatric - other findings: Could not assess Hosp A/P - Plan -Assessment (1) Acute metabolic encephalopathy Code(s): G93.41 - METABOLIC ENCEPHALOPATHY Status: Acute (2) Pelvic fracture Code(s): S32.9XXA - FRACTURE OF UNSP PARTS OF LUMBOSACRAL SPINE AND PELVIS, INIT Status: Acute Qualifiers: Encounter type: subsequent encounter Pelvic bone location: pubis Fracture type: closed Laterality: right (3) Seizures Code(s): R56.9 - UNSPECIFIED CONVULSIONS Status: Acute (4) Dementia Code(s): F03.90 - UNSPECIFIED DEMENTIA WITHOUT BEHAVIORAL DISTURBANCE Status: Chronic Qualifiers: Dementia type: Alzheimer's disease (5) HLD (hyperlipidemia) Code(s): E78.5 - HYPERLIPIDEMIA, UNSPECIFIED Status: Chronic (6) HTN (hypertension) Code(s): I10 - ESSENTIAL (PRIMARY) HYPERTENSION Status: Chronic Qualifiers: Hypertension type: essential hypertension Qualified Code(s): I10 - Essential (primary) hypertension - Plan Zonisamide was discontinued. Continue to observe. No evidence of infection. No surgical intervention for pubic rami fracture. Patient will require prison facility. MRI brain: Nil acute
[2020-01-30] MEDS: Clopidogrel Bisulfate 75 MG TAB PO SCH (20:11)
[2020-01-30] MEDS: clonazePAM 0.5 MG TAB PO SCH (20:11)
[2020-01-30] MEDS: Rosuvastatin 10 MG TAB PO SCH (20:11)
[2020-01-31] MEDS: levETIRAcetam in NS 500 MG in Premix Bag 1 BAG IVPB SCH (08:19)
[2020-01-31] MEDS: Morphine 2 MG/ML VIAL SLOW IVP PRN ×2 (11:34→20:10)
--- NOTE | 2020-01-31 13:29 | PDOC.NEUPN ---
- Subjective Encounter Date: 01/31/20 Subjective: Mr. Ocampo seems to be very confused and agitated this morning. He does not follow commands - Objective Vital Signs & Weight: Vital Signs (12 hours) Temp Pulse Resp BP BP Pulse Ox 01/31/20 11:31 100 01/31/20 11:29 97.6 F 01/31/20 11:27 72 12 162/73 H 01/31/20 08:18 97.3 F L 149/68 H 98 01/31/20 07:30 67 13 98 01/31/20 04:36 97.7 F 63 18 144/71 H 97 Weight Admit Weight 131 lb 9.6 oz Weight 131 lb 9.6 oz I&O: 01/30/20 01/31/20 02/01/20 06:59 06:59 06:59 Intake Total 100 Output Total 2 Balance 98 Result Diagrams: 01/29/20 05:03 01/29/20 05:03 Radiology Reviewed by me: Yes EKG Reviewed by me: Yes ROS - Review of Systems ROS unobtainable: due to mental status - Medication Medications: Active Medications Generic Name Dose Route Start Last Admin Trade Name Freq PRN Reason Stop Dose Admin Clonazepam 0.5 mg 01/28/20 21:00 01/30/20 20:11 Clonazepam 0.5 Mg Tab PO 0.5 mg HS SANTI Administration Clopidogrel Bisulfate 75 mg 01/27/20 21:00 01/30/20 20:11 Clopidogrel Bisulfate 75 Mg Tab PO 75 mg HS SANTI Administration Morphine Sulfate 2 mg 01/27/20 02:22 01/31/20 11:34 Morphine 2 Mg/Ml Vial SLOW IVP 2 mg Q4H PRN Administration Pain Rosuvastatin Calcium 10 mg 01/28/20 21:00 01/30/20 20:11 Rosuvastatin 10 Mg Tab PO 10 mg HS SANTI Administration Sodium Chloride 10 ml 01/28/20 21:00 01/31/20 08:21 Flush - Normal Saline 10 Ml Syringe IVF 10 ml Q12HR SANTI Administration Ziprasidone 10 mg 01/28/20 16:08 01/30/20 18:39 Ziprasidone 20 Mg Vial IM 10 mg Q2H PRN Administration Agitation - Exam General Appearance: ill appearing Eye: PERRL ENT: normocephalic atraumatic Neck: supple Respiratory: CTAB Cardiovascular: RRR Gastrointestinal: soft Extremities: no cyanosis Skin: normal turgor Neurological: no focal deficits, no new deficit Musculoskeletal: normal tone PSYCH: not oriented Results - Labs Result Diagrams: 01/29/20 05:03 01/29/20 05:03 Lab results: WBC 7.5 thou/uL (4.8-10.8) 01/29/20 05:03 Hgb 14.4 g/dL (14.0-18.0) 01/29/20 05:03 Hct 40.9 % (42.0-52.0) L 01/29/20 05:03 MCV 90.4 fL (78.0-98.0) 01/29/20 05:03 Plt Count 139 thou/uL (130-400) 01/29/20 05:03 Neutrophils % 69.9 % (42.0-75.0) 01/29/20 05:03 Band Neuts % (Manual) 14 % (5-11) H 01/27/20 04:29 Sodium 137 mmol/L (136-145) 01/29/20 05:03 Potassium 4.4 mmol/L (3.5-5.1) 01/29/20 05:03 Chloride 110 mmol/L (98-107) H 01/29/20 05:03 Carbon Dioxide 14 mmol/L (23-31) L 01/29/20 05:03 BUN 17 mg/dL (8.4-25.7) 01/29/20 05:03 Creatinine 0.75 mg/dL (0.7-1.3) 01/29/20 05:03 Glucose 84 mg/dL (83-110) 01/29/20 05:03 Calcium 8.8 mg/dL (7.8-10.44) 01/29/20 05:03 Total Bilirubin 0.9 mg/dL (0.2-1.2) 01/27/20 04:29 AST 31 U/L (5-34) 01/27/20 04:29 ALT 17 U/L (8-55) 01/27/20 04:29 Alkaline Phosphatase 59 U/L (40-110) 01/27/20 04:29 Ammonia 26 umol/L (18-72) 01/26/20 13:25 Creatine Kinase 522 U/L (30-200) H 01/26/20 13:25 CK-MB (CK-2) 10.3 ng/mL (0-6.6) H* 01/26/20 13:25 Troponin I 0.038 ng/mL (< 0.028) H 01/26/20 13:25 B-Natriuretic Peptide 76.5 pg/mL (0-100) 01/26/20 13:25 Serum Total Protein 5.6 g/dL (5.8-8.1) L 01/27/20 04:29 Albumin 3.2 g/dL (3.4-4.8) L 01/27/20 04:29 Lipase 18 U/L (8-78) 01/26/20 13:25 Urine Ketones 10 mg/dL (Negative) A 01/26/20 21:13 Urine Blood Trace (Negative) A 01/26/20 21:13 Urine Nitrite Negative (Negative) 01/26/20 21:13 Ur Leukocyte Esterase Negative Jesus/uL (Negative) 01/26/20 21:13 Urine RBC 0-3 HPF (0-3) 01/26/20 21:13 Urine WBC 0-3 HPF (0-3) 01/26/20 21:13 Ur Squamous Epith Cells None Seen HPF (0-3) 01/26/20 21:13 Urine Bacteria None Seen HPF (None Seen) 01/26/20 21:13 - Radiology Interpretation MRI - head Additional Comment: Negative for acute intracranial pathology PN A/P (1) Seizures Code(s): R56.9 - UNSPECIFIED CONVULSIONS Status: Acute (2) Dementia Code(s): F03.90 - UNSPECIFIED DEMENTIA WITHOUT BEHAVIORAL DISTURBANCE Status: Chronic Qualifiers: Dementia type: Alzheimer's disease (3) Encephalopathy acute Code(s): G93.40 - ENCEPHALOPATHY, UNSPECIFIED Status: Acute (4) Migraine Code(s): G43.909 - MIGRAINE, UNSP, NOT INTRACTABLE, WITHOUT STATUS MIGRAINOSUS Status: Acute (5) Vertigo Code(s): R42 - DIZZINESS AND GIDDINESS Status: Acute (6) HLD (hyperlipidemia) Code(s): E78.5 - HYPERLIPIDEMIA, UNSPECIFIED Status: Chronic (7) HTN (hypertension) Code(s): I10 - ESSENTIAL (PRIMARY) HYPERTENSION Status: Chronic Qualifiers: Hypertension type: essential hypertension Qualified Code(s): I10 - Essential (primary) hypertension - Plan Daily Plan: PT/OT, speech therapy, DVT proph w/SCDs Mr. Ocampo is a 84-year-old male who presented with with seizures s/p fall. He also has history of dementia and continues to to have altered mental status. Altered mental status seems to be multifactorial but most likely secondary to advanced dementia with superimposed delirium. Zonisamide discontinued which may have exacerbated the altered mental status per . Mr Ocampo continues to remain agitated and confused. MRI of the brain reviewed which was negative for acute intracranial pathology. EEG reviewed which was negative for seizure activity. Neurochecks every 4 hours. Telemetry Discontinue Keppra because of behavioral side effects. Start Depakote 250 mg IV every 8 hours which will help with seizures and also agitation. Check Depakote level in a.m. Observe seizure precautions. Ativan 2 mg IV for seizure greater than 2 minutes Continue home medications. Right pubic rami fracturessurgery on board N.p.o. till cleared by speech. PT/OT/speech. Continue medical management per primary team. Case management on board regarding discharge planning. Plan discussed in detail during the MDR rounds
[2020-01-31] MEDS: Valproate Sodium 250 MG in Sodium Chloride 0.9% 100 ML IVPB SCH ×2 (14:04→22:41)
--- NOTE | 2020-01-31 19:03 | PDOC.HOSPP ---
- Subjective Encounter Date: 01/31/20 Encounter Time: 15:00 Subjective: Patient seen in follow-up for acute metabolic encephalopathy. He is confused, could not complete review of systems. - Objective Vital Signs & Weight: Vital Signs (12 hours) Temp Pulse Resp BP Pulse Ox 01/31/20 16:00 98.0 F 60 16 143/78 H 98 01/31/20 11:31 100 01/31/20 11:29 97.6 F 01/31/20 11:27 72 12 162/73 H 01/31/20 08:18 97.3 F L 149/68 H 98 01/31/20 07:30 67 13 98 Weight Admit Weight 131 lb 9.6 oz Weight 131 lb 9.6 oz I&O: 01/30/20 01/31/20 02/01/20 06:59 06:59 06:59 Intake Total 100 200 Output Total 2 Balance 98 200 Result Diagrams: 01/29/20 05:03 01/29/20 05:03 Additional Labs: Labs and MAR reviewed by me EKG Reviewed by me: Yes (Normal sinus rhythm on telemetry) Hospitalist ROS - Review of Systems ROS unobtainable: due to mental status - Medication Medications: Active Medications Generic Name Dose Route Start Last Admin Trade Name Freq PRN Reason Stop Dose Admin Clonazepam 0.5 mg 01/28/20 21:00 01/30/20 20:11 Clonazepam 0.5 Mg Tab PO 0.5 mg HS SANTI Administration Clopidogrel Bisulfate 75 mg 01/27/20 21:00 01/30/20 20:11 Clopidogrel Bisulfate 75 Mg Tab PO 75 mg HS SANTI Administration Valproic Acid 250 mg/ Sodium 102.5 mls @ 102.5 mls/hr 01/31/20 14:00 01/31/20 14:04 Chloride IVPB 102.5 mls Q8HR SANTI Administration Morphine Sulfate 2 mg 01/27/20 02:22 01/31/20 11:34 Morphine 2 Mg/Ml Vial SLOW IVP 2 mg Q4H PRN Administration Pain Rosuvastatin Calcium 10 mg 01/28/20 21:00 01/30/20 20:11 Rosuvastatin 10 Mg Tab PO 10 mg HS SANTI Administration Sodium Chloride 10 ml 01/28/20 21:00 01/31/20 08:21 Flush - Normal Saline 10 Ml Syringe IVF 10 ml Q12HR SANTI Administration Ziprasidone 10 mg 01/28/20 16:08 01/30/20 18:39 Ziprasidone 20 Mg Vial IM 10 mg Q2H PRN Administration Agitation - Exam ENT: normocephalic atraumatic Neck: supple Heart: RRR Respiratory: CTAB, no rales Gastrointestinal: soft, non-tender Skin: no rashes Psychiatric - other findings: Unable to assess Hosp A/P - Plan -Assessment (1) Acute metabolic encephalopathy Code(s): G93.41 - METABOLIC ENCEPHALOPATHY Status: Acute (2) Pelvic fracture Code(s): S32.9XXA - FRACTURE OF UNSP PARTS OF LUMBOSACRAL SPINE AND PELVIS, INIT Status: Acute Qualifiers: Encounter type: subsequent encounter Pelvic bone location: pubis Fracture type: closed Laterality: right (3) Seizures Code(s): R56.9 - UNSPECIFIED CONVULSIONS Status: Acute (4) Dementia Code(s): F03.90 - UNSPECIFIED DEMENTIA WITHOUT BEHAVIORAL DISTURBANCE Status: Chronic Qualifiers: Dementia type: Alzheimer's disease (5) HLD (hyperlipidemia) Code(s): E78.5 - HYPERLIPIDEMIA, UNSPECIFIED Status: Chronic (6) HTN (hypertension) Code(s): I10 - ESSENTIAL (PRIMARY) HYPERTENSION Status: Chronic Qualifiers: Hypertension type: essential hypertension Qualified Code(s): I10 - Essential (primary) hypertension - Plan Minimal change in patient's mental status. No evidence of infection. Medical management for pubic rami fracture. Patient will require jail facility.
[2020-01-31] MEDS: Rosuvastatin 10 MG TAB PO SCH (20:10)
[2020-01-31] MEDS: clonazePAM 0.5 MG TAB PO SCH (20:10)
[2020-01-31] MEDS: Clopidogrel Bisulfate 75 MG TAB PO SCH (20:10)
[2020-02-01] MEDS: Valproate Sodium 250 MG in Sodium Chloride 0.9% 100 ML IVPB SCH ×3 (06:24→21:33)
[2020-02-01] MEDS: Ziprasidone 20 MG VIAL IM PRN (11:11)
--- NOTE | 2020-02-01 12:46 | PDOC.NEUPN ---
- Subjective Encounter Date: 02/01/20 Subjective: He remain confused and agitated since the last 24 hours - Objective Vital Signs & Weight: Vital Signs (12 hours) Temp Pulse Resp BP Pulse Ox 02/01/20 11:36 97.5 F L 89 12 154/94 H 95 02/01/20 09:33 140/63 02/01/20 07:52 98.3 F 66 20 189/79 H 95 02/01/20 03:51 98.2 F 61 18 151/69 H 98 Weight Admit Weight 131 lb 9.6 oz Weight 131 lb 9.6 oz I&O: 01/31/20 02/01/20 02/02/20 06:59 06:59 06:59 Intake Total 100 200 Output Total 2 Balance 98 200 Result Diagrams: 01/29/20 05:03 01/29/20 05:03 Radiology Reviewed by me: Yes EKG Reviewed by me: Yes ROS - Review of Systems ROS unobtainable: due to mental status - Medication Medications: Active Medications Generic Name Dose Route Start Last Admin Trade Name Freq PRN Reason Stop Dose Admin Clonazepam 0.5 mg 01/28/20 21:00 01/31/20 20:10 Clonazepam 0.5 Mg Tab PO 0.5 mg HS SANTI Administration Clopidogrel Bisulfate 75 mg 01/27/20 21:00 01/31/20 20:10 Clopidogrel Bisulfate 75 Mg Tab PO 75 mg HS SANTI Administration Valproic Acid 250 mg/ Sodium 102.5 mls @ 102.5 mls/hr 01/31/20 14:00 02/01/20 06:24 Chloride IVPB 102.5 mls Q8HR SANTI Administration Morphine Sulfate 2 mg 01/27/20 02:22 01/31/20 20:10 Morphine 2 Mg/Ml Vial SLOW IVP 2 mg Q4H PRN Administration Pain Rosuvastatin Calcium 10 mg 01/28/20 21:00 01/31/20 20:10 Rosuvastatin 10 Mg Tab PO 10 mg HS SANTI Administration Sodium Chloride 10 ml 01/28/20 21:00 02/01/20 09:32 Flush - Normal Saline 10 Ml Syringe IVF 10 ml Q12HR SANTI Administration Sodium Chloride 10 ml 01/28/20 10:15 02/01/20 06:24 Flush - Normal Saline 10 Ml Syringe IVF 10 ml PRN PRN Administration Saline Flush Ziprasidone 10 mg 01/28/20 16:08 02/01/20 11:11 Ziprasidone 20 Mg Vial IM 10 mg Q2H PRN Administration Agitation - Exam General Appearance: awake alert Eye: PERRL ENT: normocephalic atraumatic Neck: supple Respiratory: CTAB Cardiovascular: RRR Gastrointestinal: soft Extremities: no cyanosis Skin: normal turgor Neurological: no new deficit Musculoskeletal: normal tone PSYCH: oriented to time Results - Labs Result Diagrams: 01/29/20 05:03 01/29/20 05:03 Lab results: WBC 7.5 thou/uL (4.8-10.8) 01/29/20 05:03 Hgb 14.4 g/dL (14.0-18.0) 01/29/20 05:03 Hct 40.9 % (42.0-52.0) L 01/29/20 05:03 MCV 90.4 fL (78.0-98.0) 01/29/20 05:03 Plt Count 139 thou/uL (130-400) 01/29/20 05:03 Neutrophils % 69.9 % (42.0-75.0) 01/29/20 05:03 Band Neuts % (Manual) 14 % (5-11) H 01/27/20 04:29 Sodium 137 mmol/L (136-145) 01/29/20 05:03 Potassium 4.4 mmol/L (3.5-5.1) 01/29/20 05:03 Chloride 110 mmol/L (98-107) H 01/29/20 05:03 Carbon Dioxide 14 mmol/L (23-31) L 01/29/20 05:03 BUN 17 mg/dL (8.4-25.7) 01/29/20 05:03 Creatinine 0.75 mg/dL (0.7-1.3) 01/29/20 05:03 Glucose 84 mg/dL (83-110) 01/29/20 05:03 Calcium 8.8 mg/dL (7.8-10.44) 01/29/20 05:03 Total Bilirubin 0.9 mg/dL (0.2-1.2) 01/27/20 04:29 AST 31 U/L (5-34) 01/27/20 04:29 ALT 17 U/L (8-55) 01/27/20 04:29 Alkaline Phosphatase 59 U/L (40-110) 01/27/20 04:29 Ammonia 26 umol/L (18-72) 01/26/20 13:25 Creatine Kinase 522 U/L (30-200) H 01/26/20 13:25 CK-MB (CK-2) 10.3 ng/mL (0-6.6) H* 01/26/20 13:25 Troponin I 0.038 ng/mL (< 0.028) H 01/26/20 13:25 B-Natriuretic Peptide 76.5 pg/mL (0-100) 01/26/20 13:25 Serum Total Protein 5.6 g/dL (5.8-8.1) L 01/27/20 04:29 Albumin 3.2 g/dL (3.4-4.8) L 01/27/20 04:29 Lipase 18 U/L (8-78) 01/26/20 13:25 Urine Ketones 10 mg/dL (Negative) A 01/26/20 21:13 Urine Blood Trace (Negative) A 01/26/20 21:13 Urine Nitrite Negative (Negative) 01/26/20 21:13 Ur Leukocyte Esterase Negative Jesus/uL (Negative) 01/26/20 21:13 Urine RBC 0-3 HPF (0-3) 01/26/20 21:13 Urine WBC 0-3 HPF (0-3) 01/26/20 21:13 Ur Squamous Epith Cells None Seen HPF (0-3) 01/26/20 21:13 Urine Bacteria None Seen HPF (None Seen) 01/26/20 21:13 PN A/P (1) Seizures Code(s): R56.9 - UNSPECIFIED CONVULSIONS Status: Acute (2) Dementia Code(s): F03.90 - UNSPECIFIED DEMENTIA WITHOUT BEHAVIORAL DISTURBANCE Status: Chronic Qualifiers: Dementia type: Alzheimer's disease (3) Encephalopathy acute Code(s): G93.40 - ENCEPHALOPATHY, UNSPECIFIED Status: Acute (4) Migraine Code(s): G43.909 - MIGRAINE, UNSP, NOT INTRACTABLE, WITHOUT STATUS MIGRAINOSUS Status: Acute (5) Vertigo Code(s): R42 - DIZZINESS AND GIDDINESS Status: Acute (6) HLD (hyperlipidemia) Code(s): E78.5 - HYPERLIPIDEMIA, UNSPECIFIED Status: Chronic (7) HTN (hypertension) Code(s): I10 - ESSENTIAL (PRIMARY) HYPERTENSION Status: Chronic Qualifiers: Hypertension type: essential hypertension Qualified Code(s): I10 - Essential (primary) hypertension - Plan Daily Plan: PT/OT, speech therapy, DVT proph w/SCDs Mr. Ocampo is a 84-year-old male who presented with with seizures s/p fall. He also has history of dementia and continues to to have altered mental status. Altered mental status seems to be multifactorial but most likely secondary to advanced dementia with superimposed delirium. Zonisamide discontinued which may have exacerbated the altered mental status per . Mr Ocampo continues to remain agitated and confused since the last 24 hours with no improvement in mental status. No seizures reported since admission Keppra discontinued yesterday because of concern of behavior issues and started on Depakote. Continue Depakote to 250 mg IV every 8 hours to help with seizures and also agitation. MRI of the brain reviewed which was negative for acute intracranial pathology. EEG reviewed which was negative for seizure activity. Neurochecks every 4 hours. Telemetry Observe seizure precautions. Ativan 2 mg IV for seizure greater than 2 minutes Continue home medications. Right pubic rami fracturessurgery on board N.p.o. till cleared by speech. PT/OT/speech. Continue medical management per primary team. Case management on board regarding discharge planning.
--- NOTE | 2020-02-01 12:46 | PDOC.HOSPP ---
- Subjective Encounter Date: 02/01/20 Encounter Time: 07:30 Subjective: Patient seen in follow-up regarding acute metabolic encephalopathy. Confused, could not obtain review of systems. - Objective Vital Signs & Weight: Vital Signs (12 hours) Temp Pulse Resp BP Pulse Ox 02/01/20 11:36 97.5 F L 89 12 154/94 H 95 02/01/20 09:33 140/63 02/01/20 07:52 98.3 F 66 20 189/79 H 95 02/01/20 03:51 98.2 F 61 18 151/69 H 98 Weight Admit Weight 131 lb 9.6 oz Weight 131 lb 9.6 oz I&O: 01/31/20 02/01/20 02/02/20 06:59 06:59 06:59 Intake Total 100 200 Output Total 2 Balance 98 200 Result Diagrams: 01/29/20 05:03 01/29/20 05:03 Additional Labs: I reviewed patient's labs and MAR EKG Reviewed by me: Yes (Normal sinus rhythm on telemetry) Hospitalist ROS - Review of Systems ROS unobtainable: due to mental status - Medication Medications: Active Medications Generic Name Dose Route Start Last Admin Trade Name Freq PRN Reason Stop Dose Admin Clonazepam 0.5 mg 01/28/20 21:00 01/31/20 20:10 Clonazepam 0.5 Mg Tab PO 0.5 mg HS SANTI Administration Clopidogrel Bisulfate 75 mg 01/27/20 21:00 01/31/20 20:10 Clopidogrel Bisulfate 75 Mg Tab PO 75 mg HS SANTI Administration Valproic Acid 250 mg/ Sodium 102.5 mls @ 102.5 mls/hr 01/31/20 14:00 02/01/20 06:24 Chloride IVPB 102.5 mls Q8HR SANTI Administration Morphine Sulfate 2 mg 01/27/20 02:22 01/31/20 20:10 Morphine 2 Mg/Ml Vial SLOW IVP 2 mg Q4H PRN Administration Pain Rosuvastatin Calcium 10 mg 01/28/20 21:00 01/31/20 20:10 Rosuvastatin 10 Mg Tab PO 10 mg HS SANTI Administration Sodium Chloride 10 ml 01/28/20 21:00 02/01/20 09:32 Flush - Normal Saline 10 Ml Syringe IVF 10 ml Q12HR SANTI Administration Sodium Chloride 10 ml 01/28/20 10:15 02/01/20 06:24 Flush - Normal Saline 10 Ml Syringe IVF 10 ml PRN PRN Administration Saline Flush Ziprasidone 10 mg 01/28/20 16:08 02/01/20 11:11 Ziprasidone 20 Mg Vial IM 10 mg Q2H PRN Administration Agitation - Exam General - other findings: Sleepy but arousable ENT: normocephalic atraumatic Neck: supple Heart: RRR Respiratory: CTAB Gastrointestinal: soft, non-tender Skin: no rashes Psychiatric: lethargic Hosp A/P - Plan -Assessment (1) Acute metabolic encephalopathy Code(s): G93.41 - METABOLIC ENCEPHALOPATHY Status: Acute (2) Pelvic fracture Code(s): S32.9XXA - FRACTURE OF UNSP PARTS OF LUMBOSACRAL SPINE AND PELVIS, INIT Status: Acute Qualifiers: Encounter type: subsequent encounter Pelvic bone location: pubis Fracture type: closed Laterality: right (3) Seizures Code(s): R56.9 - UNSPECIFIED CONVULSIONS Status: Acute (4) HLD (hyperlipidemia) Code(s): E78.5 - HYPERLIPIDEMIA, UNSPECIFIED Status: Chronic (5) Dementia Code(s): F03.90 - UNSPECIFIED DEMENTIA WITHOUT BEHAVIORAL DISTURBANCE Status: Chronic Qualifiers: Dementia type: Alzheimer's disease (6) HTN (hypertension) Code(s): I10 - ESSENTIAL (PRIMARY) HYPERTENSION Status: Chronic Qualifiers: Hypertension type: essential hypertension Qualified Code(s): I10 - Essential (primary) hypertension - Plan Minimal change in patient's mental status. Patient was started on Depakote yesterday. Keppra was discontinued. Medical management for pubic rami fracture. Discharge planning.
[2020-02-01] MEDS: Rosuvastatin 10 MG TAB PO SCH (20:27)
[2020-02-01] MEDS: Clopidogrel Bisulfate 75 MG TAB PO SCH (20:27)
[2020-02-01] MEDS: clonazePAM 0.5 MG TAB PO SCH (20:27)
[2020-02-02] MEDS: Morphine 2 MG/ML VIAL SLOW IVP PRN ×2 (04:36→22:24)
[2020-02-02] MEDS: Valproate Sodium 250 MG in Sodium Chloride 0.9% 100 ML IVPB SCH ×3 (06:20→21:21)
--- NOTE | 2020-02-02 11:43 | PDOC.NEUPN ---
- Subjective Encounter Date: 02/02/20 Subjective: Mr. Ocampo remains baseline confused and increased somnolence since the last 24 hours. - Objective Vital Signs & Weight: Vital Signs (12 hours) Temp Pulse Resp BP BP Pulse Ox 02/02/20 07:48 97.9 F 63 20 162/70 H 95 02/02/20 04:34 97.0 F L 75 14 121/84 99 02/02/20 00:56 97.3 F L 71 18 131/75 99 Weight Admit Weight 131 lb 9.6 oz Weight 131 lb 9.6 oz I&O: 02/01/20 02/02/20 02/03/20 06:59 06:59 06:59 Intake Total 200 Balance 200 Result Diagrams: 01/29/20 05:03 01/29/20 05:03 Radiology Reviewed by me: Yes EKG Reviewed by me: Yes ROS - Review of Systems ROS unobtainable: due to mental status - Medication Medications: Active Medications Generic Name Dose Route Start Last Admin Trade Name Freq PRN Reason Stop Dose Admin Clonazepam 0.5 mg 01/28/20 21:00 02/01/20 20:27 Clonazepam 0.5 Mg Tab PO 0.5 mg HS SANTI Administration Clopidogrel Bisulfate 75 mg 01/27/20 21:00 02/01/20 20:27 Clopidogrel Bisulfate 75 Mg Tab PO 75 mg HS SANTI Administration Valproic Acid 250 mg/ Sodium 102.5 mls @ 102.5 mls/hr 01/31/20 14:00 02/02/20 06:20 Chloride IVPB 102.5 mls Q8HR SANTI Administration Morphine Sulfate 2 mg 01/27/20 02:22 02/02/20 04:36 Morphine 2 Mg/Ml Vial SLOW IVP 2 mg Q4H PRN Administration Pain Rosuvastatin Calcium 10 mg 01/28/20 21:00 02/01/20 20:27 Rosuvastatin 10 Mg Tab PO 10 mg HS SANTI Administration Sodium Chloride 10 ml 01/28/20 21:00 02/02/20 09:42 Flush - Normal Saline 10 Ml Syringe IVF 10 ml Q12HR SANTI Administration Sodium Chloride 10 ml 01/28/20 10:15 02/01/20 06:24 Flush - Normal Saline 10 Ml Syringe IVF 10 ml PRN PRN Administration Saline Flush Ziprasidone 10 mg 01/28/20 16:08 02/01/20 11:11 Ziprasidone 20 Mg Vial IM 10 mg Q2H PRN Administration Agitation - Exam General Appearance: ill appearing Eye: PERRL ENT: normocephalic atraumatic Neck: supple Respiratory: CTAB Cardiovascular: RRR Gastrointestinal: soft Extremities: no cyanosis Skin: normal turgor Neurological: no focal deficits, no new deficit Musculoskeletal: normal tone, no muscle wasting PSYCH: not oriented Results - Labs Result Diagrams: 01/29/20 05:03 01/29/20 05:03 Lab results: WBC 7.5 thou/uL (4.8-10.8) 01/29/20 05:03 Hgb 14.4 g/dL (14.0-18.0) 01/29/20 05:03 Hct 40.9 % (42.0-52.0) L 01/29/20 05:03 MCV 90.4 fL (78.0-98.0) 01/29/20 05:03 Plt Count 139 thou/uL (130-400) 01/29/20 05:03 Neutrophils % 69.9 % (42.0-75.0) 01/29/20 05:03 Band Neuts % (Manual) 14 % (5-11) H 01/27/20 04:29 Sodium 137 mmol/L (136-145) 01/29/20 05:03 Potassium 4.4 mmol/L (3.5-5.1) 01/29/20 05:03 Chloride 110 mmol/L (98-107) H 01/29/20 05:03 Carbon Dioxide 14 mmol/L (23-31) L 01/29/20 05:03 BUN 17 mg/dL (8.4-25.7) 01/29/20 05:03 Creatinine 0.75 mg/dL (0.7-1.3) 01/29/20 05:03 Glucose 84 mg/dL (83-110) 01/29/20 05:03 Calcium 8.8 mg/dL (7.8-10.44) 01/29/20 05:03 Total Bilirubin 0.9 mg/dL (0.2-1.2) 01/27/20 04:29 AST 31 U/L (5-34) 01/27/20 04:29 ALT 17 U/L (8-55) 01/27/20 04:29 Alkaline Phosphatase 59 U/L (40-110) 01/27/20 04:29 Ammonia 26 umol/L (18-72) 01/26/20 13:25 Creatine Kinase 522 U/L (30-200) H 01/26/20 13:25 CK-MB (CK-2) 10.3 ng/mL (0-6.6) H* 01/26/20 13:25 Troponin I 0.038 ng/mL (< 0.028) H 01/26/20 13:25 B-Natriuretic Peptide 76.5 pg/mL (0-100) 01/26/20 13:25 Serum Total Protein 5.6 g/dL (5.8-8.1) L 01/27/20 04:29 Albumin 3.2 g/dL (3.4-4.8) L 01/27/20 04:29 Lipase 18 U/L (8-78) 01/26/20 13:25 Urine Ketones 10 mg/dL (Negative) A 01/26/20 21:13 Urine Blood Trace (Negative) A 01/26/20 21:13 Urine Nitrite Negative (Negative) 01/26/20 21:13 Ur Leukocyte Esterase Negative Jesus/uL (Negative) 01/26/20 21:13 Urine RBC 0-3 HPF (0-3) 01/26/20 21:13 Urine WBC 0-3 HPF (0-3) 01/26/20 21:13 Ur Squamous Epith Cells None Seen HPF (0-3) 01/26/20 21:13 Urine Bacteria None Seen HPF (None Seen) 01/26/20 21:13 PN A/P (1) Seizures Code(s): R56.9 - UNSPECIFIED CONVULSIONS Status: Acute (2) Dementia Code(s): F03.90 - UNSPECIFIED DEMENTIA WITHOUT BEHAVIORAL DISTURBANCE Status: Chronic Qualifiers: Dementia type: Alzheimer's disease (3) Encephalopathy acute Code(s): G93.40 - ENCEPHALOPATHY, UNSPECIFIED Status: Acute (4) Migraine Code(s): G43.909 - MIGRAINE, UNSP, NOT INTRACTABLE, WITHOUT STATUS MIGRAINOSUS Status: Acute (5) Vertigo Code(s): R42 - DIZZINESS AND GIDDINESS Status: Acute (6) HLD (hyperlipidemia) Code(s): E78.5 - HYPERLIPIDEMIA, UNSPECIFIED Status: Chronic (7) HTN (hypertension) Code(s): I10 - ESSENTIAL (PRIMARY) HYPERTENSION Status: Chronic Qualifiers: Hypertension type: essential hypertension Qualified Code(s): I10 - Essential (primary) hypertension - Plan Daily Plan: PT/OT, speech therapy, DVT proph w/SCDs Mr. Ocampo is a 84-year-old male who presented with with seizures s/p fall. He also has history of dementia and continues to to have altered mental status. Altered mental status seems to be multifactorial but most likely secondary to advanced dementia with superimposed delirium. Zonisamide discontinued on the day of admission which may have exacerbated the altered mental status per . Mr Ocampo continues to remain agitated and confused since the last 24 hours with no improvement in mental status. No seizures reported since admission . Continue Depakote to 250 mg IV every 8 hours to help with seizures and also agitation. Check Depakote level in a.m. MRI of the brain reviewed which was negative for acute intracranial pathology. EEG reviewed which was negative for seizure activity. Neurochecks every 4 hours. Telemetry Observe seizure precautions. Ativan 2 mg IV for seizure greater than 2 minutes Continue home medications. Right pubic rami fracturessurgery on board PT/OT/speech. Continue medical management per primary team. Case management on board regarding discharge planning. Patient discussed in detail with the nursing staff and also during the MDR rounds.
--- NOTE | 2020-02-02 13:37 | PDOC.HOSPP ---
- Subjective Encounter Date: 02/02/20 Encounter Time: 07:00 Subjective: Patient followed up for acute metabolic encephalopathy. He is not speaking, could not complete review of systems. - Objective Vital Signs & Weight: Vital Signs (12 hours) Temp Pulse Resp BP BP Pulse Ox 02/02/20 12:00 97.3 F L 74 14 133/90 96 02/02/20 07:48 97.9 F 63 20 162/70 H 95 02/02/20 04:34 97.0 F L 75 14 121/84 99 Weight Admit Weight 131 lb 9.6 oz Weight 131 lb 9.6 oz I&O: 02/01/20 02/02/20 02/03/20 06:59 06:59 06:59 Intake Total 200 Balance 200 Result Diagrams: 01/29/20 05:03 01/29/20 05:03 Additional Labs: Labs and MAR reviewed by me EKG Reviewed by me: Yes (Telemetry shows normal sinus rhythm) Hospitalist ROS - Review of Systems ROS unobtainable: due to mental status - Medication Medications: Active Medications Generic Name Dose Route Start Last Admin Trade Name Freq PRN Reason Stop Dose Admin Clonazepam 0.5 mg 01/28/20 21:00 02/01/20 20:27 Clonazepam 0.5 Mg Tab PO 0.5 mg HS SANTI Administration Clopidogrel Bisulfate 75 mg 01/27/20 21:00 02/01/20 20:27 Clopidogrel Bisulfate 75 Mg Tab PO 75 mg HS SANTI Administration Valproic Acid 250 mg/ Sodium 102.5 mls @ 102.5 mls/hr 01/31/20 14:00 02/02/20 06:20 Chloride IVPB 102.5 mls Q8HR SANTI Administration Morphine Sulfate 2 mg 01/27/20 02:22 02/02/20 04:36 Morphine 2 Mg/Ml Vial SLOW IVP 2 mg Q4H PRN Administration Pain Rosuvastatin Calcium 10 mg 01/28/20 21:00 02/01/20 20:27 Rosuvastatin 10 Mg Tab PO 10 mg HS SANTI Administration Sodium Chloride 10 ml 01/28/20 21:00 02/02/20 09:42 Flush - Normal Saline 10 Ml Syringe IVF 10 ml Q12HR SANTI Administration Sodium Chloride 10 ml 01/28/20 10:15 02/01/20 06:24 Flush - Normal Saline 10 Ml Syringe IVF 10 ml PRN PRN Administration Saline Flush Ziprasidone 10 mg 01/28/20 16:08 02/01/20 11:11 Ziprasidone 20 Mg Vial IM 10 mg Q2H PRN Administration Agitation - Exam General - other findings: Sleepy but arousable Eye: anicteric sclera ENT: normocephalic atraumatic Neck: supple Heart: RRR Respiratory: CTAB Gastrointestinal: non-tender Psychiatric - other findings: Unable to assess Hosp A/P - Plan -Assessment (1) Acute metabolic encephalopathy Code(s): G93.41 - METABOLIC ENCEPHALOPATHY Status: Acute (2) Pelvic fracture Code(s): S32.9XXA - FRACTURE OF UNSP PARTS OF LUMBOSACRAL SPINE AND PELVIS, INIT Status: Acute Qualifiers: Encounter type: subsequent encounter Pelvic bone location: pubis Fracture type: closed Laterality: right (3) Seizures Code(s): R56.9 - UNSPECIFIED CONVULSIONS Status: Acute (4) HLD (hyperlipidemia) Code(s): E78.5 - HYPERLIPIDEMIA, UNSPECIFIED Status: Chronic (5) Dementia Code(s): F03.90 - UNSPECIFIED DEMENTIA WITHOUT BEHAVIORAL DISTURBANCE Status: Chronic Qualifiers: Dementia type: Alzheimer's disease (6) HTN (hypertension) Code(s): I10 - ESSENTIAL (PRIMARY) HYPERTENSION Status: Chronic Qualifiers: Hypertension type: essential hypertension Qualified Code(s): I10 - Essential (primary) hypertension - Plan Continue Depakote. No surgical plan for pubic rami fracture. Discharge plan nat in process.
[2020-02-02] MEDS: Clopidogrel Bisulfate 75 MG TAB PO SCH (21:32)
[2020-02-02] MEDS: Rosuvastatin 10 MG TAB PO SCH (21:32)
[2020-02-02] MEDS: clonazePAM 0.5 MG TAB PO SCH (21:32)
[2020-02-03] MEDS: Valproate Sodium 250 MG in Sodium Chloride 0.9% 100 ML IVPB SCH ×3 (06:20→20:58)
--- NOTE | 2020-02-03 13:22 | PQF ---
CLINICAL DOCUMENTATION CLARIFICATION FORM: Dear Dr. Cramer Date: 02/03/2020; 02/04/2020 Please exercise your independent, professional judgment in responding to the clarification form. Clinical indicators are provided on the bottom of this form for your review. Please check appropriate box(es): [ ] Protein Calorie Malnutrition: [ ] Mild [ ] Moderate [ ] Severe [ ] Other Malnutrition (please specify) [ ] Underweight without malnutrition [ ] Other diagnosis [ ] Unable to determine In addition, please specify: Present on Admission (POA): [ ] Yes [ ] No [ ] Unable to determine For continuity of documentation, please document condition throughout progress notes and discharge summary. Thank You. 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 RISK FACTORS / RESULTS AND LOCATION IN MR *H&P 01/25 (Affram) A/P: 84 yo pt with hx of HTN, worsening dementia. Acute encephalopathy. Seizure activity. Pelvic fx 2/2 fall. *01/26 pn Jasbir: Exam: Musculoskeletal: generalized weakness TREATMENT / RESULTS AND LOCATION IN MR *Film Process Operator Assessment 01/16 for unsure weight loss and eating poorly. 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 machine 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 Moderate Malnutrition (in chronic illness) Energy Intake: <75% of estimated energy requirement for =1 month Weight Loss: 5%/1 month; 7.5%/3 months; 10%/6 months; 20%/1 year Other: mild body fat loss; mild muscle mass loss; mild fluid accumulation Severe Malnutrition (in chronic illness) Energy Intake: =75% of estimated energy requirement for =1 month Weight Loss: >5%/1 month; >7.5%/3 months; >10%/6 months; >20%/1 year Other: severe body fat loss; severe muscle mass loss; severe fluid accumulation; measurably reduced tool machine 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 Thank you, Ary Davis RN, BSN [email or web address] This is a permanent part of the Medical Record MTD
--- NOTE | 2020-02-03 14:50 | PDOC.NEUPN ---
- Subjective Encounter Date: 02/03/20 Subjective: Mr. Ocampo is awake and calm today but does not follow commands and continues to have baseline confusion. - Objective Vital Signs & Weight: Vital Signs (12 hours) Temp Pulse Resp BP Pulse Ox 02/03/20 11:36 97.6 F 72 12 155/72 H 100 02/03/20 08:05 97.6 F 72 12 155/72 H 100 02/03/20 07:01 97.8 F 65 19 157/73 H 100 02/03/20 04:00 97.8 F 65 18 157/73 H 100 Weight Admit Weight 131 lb 9.6 oz Weight 131 lb 9.6 oz Result Diagrams: 01/29/20 05:03 01/29/20 05:03 Radiology Reviewed by me: Yes EKG Reviewed by me: Yes ROS - Review of Systems ROS unobtainable: due to mental status - Medication Medications: Active Medications Generic Name Dose Route Start Last Admin Trade Name Freq PRN Reason Stop Dose Admin Clonazepam 0.5 mg 01/28/20 21:00 02/02/20 21:32 Clonazepam 0.5 Mg Tab PO Not Given HS SANTI Clopidogrel Bisulfate 75 mg 01/27/20 21:00 02/02/20 21:32 Clopidogrel Bisulfate 75 Mg Tab PO Not Given HS SANTI Valproic Acid 250 mg/ Sodium 102.5 mls @ 102.5 mls/hr 01/31/20 14:00 02/03/20 13:20 Chloride IVPB 102.5 mls Q8HR SANTI Administration Morphine Sulfate 2 mg 01/27/20 02:22 02/02/20 22:24 Morphine 2 Mg/Ml Vial SLOW IVP 2 mg Q4H PRN Administration Pain Rosuvastatin Calcium 10 mg 01/28/20 21:00 02/02/20 21:32 Rosuvastatin 10 Mg Tab PO Not Given HS SANTI Sodium Chloride 10 ml 01/28/20 21:00 02/03/20 10:50 Flush - Normal Saline 10 Ml Syringe IVF 10 ml Q12HR SANTI Administration Sodium Chloride 10 ml 01/28/20 10:15 02/01/20 06:24 Flush - Normal Saline 10 Ml Syringe IVF 10 ml PRN PRN Administration Saline Flush Ziprasidone 10 mg 01/28/20 16:08 02/01/20 11:11 Ziprasidone 20 Mg Vial IM 10 mg Q2H PRN Administration Agitation - Exam General Appearance: awake alert Eye: PERRL ENT: normocephalic atraumatic Neck: supple Respiratory: CTAB Cardiovascular: RRR Gastrointestinal: soft Extremities: no cyanosis Skin: normal turgor Neurological: no focal deficits, no new deficit Musculoskeletal: normal tone, no muscle wasting PSYCH: not oriented Results - Labs Result Diagrams: 01/29/20 05:03 01/29/20 05:03 Lab results: WBC 7.5 thou/uL (4.8-10.8) 01/29/20 05:03 Hgb 14.4 g/dL (14.0-18.0) 01/29/20 05:03 Hct 40.9 % (42.0-52.0) L 01/29/20 05:03 MCV 90.4 fL (78.0-98.0) 01/29/20 05:03 Plt Count 139 thou/uL (130-400) 01/29/20 05:03 Neutrophils % 69.9 % (42.0-75.0) 01/29/20 05:03 Band Neuts % (Manual) 14 % (5-11) H 01/27/20 04:29 Sodium 137 mmol/L (136-145) 01/29/20 05:03 Potassium 4.4 mmol/L (3.5-5.1) 01/29/20 05:03 Chloride 110 mmol/L (98-107) H 01/29/20 05:03 Carbon Dioxide 14 mmol/L (23-31) L 01/29/20 05:03 BUN 17 mg/dL (8.4-25.7) 01/29/20 05:03 Creatinine 0.75 mg/dL (0.7-1.3) 01/29/20 05:03 Glucose 84 mg/dL (83-110) 01/29/20 05:03 Calcium 8.8 mg/dL (7.8-10.44) 01/29/20 05:03 Total Bilirubin 0.9 mg/dL (0.2-1.2) 01/27/20 04:29 AST 31 U/L (5-34) 01/27/20 04:29 ALT 17 U/L (8-55) 01/27/20 04:29 Alkaline Phosphatase 59 U/L (40-110) 01/27/20 04:29 Ammonia 26 umol/L (18-72) 01/26/20 13:25 Creatine Kinase 522 U/L (30-200) H 01/26/20 13:25 CK-MB (CK-2) 10.3 ng/mL (0-6.6) H* 01/26/20 13:25 Troponin I 0.038 ng/mL (< 0.028) H 01/26/20 13:25 B-Natriuretic Peptide 76.5 pg/mL (0-100) 01/26/20 13:25 Serum Total Protein 5.6 g/dL (5.8-8.1) L 01/27/20 04:29 Albumin 3.2 g/dL (3.4-4.8) L 01/27/20 04:29 Lipase 18 U/L (8-78) 01/26/20 13:25 Urine Ketones 10 mg/dL (Negative) A 01/26/20 21:13 Urine Blood Trace (Negative) A 01/26/20 21:13 Urine Nitrite Negative (Negative) 01/26/20 21:13 Ur Leukocyte Esterase Negative Jesus/uL (Negative) 01/26/20 21:13 Urine RBC 0-3 HPF (0-3) 01/26/20 21:13 Urine WBC 0-3 HPF (0-3) 01/26/20 21:13 Ur Squamous Epith Cells None Seen HPF (0-3) 01/26/20 21:13 Urine Bacteria None Seen HPF (None Seen) 01/26/20 21:13 - Radiology Interpretation MRI - head Additional Comment: No acute intracranial pathology PN A/P (1) Seizures Code(s): R56.9 - UNSPECIFIED CONVULSIONS Status: Acute (2) Dementia Code(s): F03.90 - UNSPECIFIED DEMENTIA WITHOUT BEHAVIORAL DISTURBANCE Status: Chronic Qualifiers: Dementia type: Alzheimer's disease (3) Encephalopathy acute Code(s): G93.40 - ENCEPHALOPATHY, UNSPECIFIED Status: Acute (4) Migraine Code(s): G43.909 - MIGRAINE, UNSP, NOT INTRACTABLE, WITHOUT STATUS MIGRAINOSUS Status: Acute (5) Vertigo Code(s): R42 - DIZZINESS AND GIDDINESS Status: Acute (6) HLD (hyperlipidemia) Code(s): E78.5 - HYPERLIPIDEMIA, UNSPECIFIED Status: Chronic (7) HTN (hypertension) Code(s): I10 - ESSENTIAL (PRIMARY) HYPERTENSION Status: Chronic Qualifiers: Hypertension type: essential hypertension Qualified Code(s): I10 - Essential (primary) hypertension - Plan Daily Plan: PT/OT, speech therapy, DVT proph w/SCDs Mr. Ocampo is a 84-year-old male who presented with with seizures s/p fall. He also has history of dementia and continues to to have altered mental status. Altered mental status seems to be multifactorial but most likely secondary to advanced dementia with superimposed delirium. Zonisamide discontinued on the day of admission which may have exacerbated the altered mental status per . Mr Ocampo is calm today but does not follow commands and remains confused. No seizures reported since admission . Continue Depakote to 250 mg IV every 8 hours to help with seizures and also agitation. Patient not able to feed himself. Speech is on board. Need to assess for PEG placement. MRI of the brain reviewed which was negative for acute intracranial pathology. EEG reviewed which was negative for seizure activity. Neurochecks every 4 hours. Telemetry Observe seizure precautions. Ativan 2 mg IV for seizure greater than 2 minutes Continue home medications. Right pubic rami fracturessurgery on board PT/OT/speech. Continue medical management per primary team. Case management on board regarding discharge planning. Patient discussed in detail with the nursing staff and also during the MDR rounds.
--- NOTE | 2020-02-03 16:02 | PDOC.HOSPP ---
- Subjective Encounter Date: 02/03/20 Encounter Time: 08:20 Subjective: Patient seen for follow-up of acute metabolic encephalopathy. Patient is unable to answer questions, could not complete review of systems. - Objective Vital Signs & Weight: Vital Signs (12 hours) Temp Pulse Resp BP BP Pulse Ox 02/03/20 13:17 96.5 F L 68 12 166/69 H 97 02/03/20 11:36 97.6 F 72 12 155/72 H 100 02/03/20 08:05 97.6 F 72 12 155/72 H 100 02/03/20 07:01 97.8 F 65 19 157/73 H 100 Weight Admit Weight 131 lb 9.6 oz Weight 131 lb 9.6 oz I&O: 02/02/20 02/03/20 02/04/20 06:59 06:59 06:59 Intake Total 118 Balance 118 Result Diagrams: 01/29/20 05:03 01/29/20 05:03 Additional Labs: I reviewed patient's labs and MAR EKG Reviewed by me: Yes (Normal sinus rhythm on telemetry) Hospitalist ROS - Review of Systems ROS unobtainable: due to mental status - Medication Medications: Active Medications Generic Name Dose Route Start Last Admin Trade Name Freq PRN Reason Stop Dose Admin Clonazepam 0.5 mg 01/28/20 21:00 02/02/20 21:32 Clonazepam 0.5 Mg Tab PO Not Given HS SANTI Clopidogrel Bisulfate 75 mg 01/27/20 21:00 02/02/20 21:32 Clopidogrel Bisulfate 75 Mg Tab PO Not Given HS SANTI Valproic Acid 250 mg/ Sodium 102.5 mls @ 102.5 mls/hr 01/31/20 14:00 02/03/20 13:20 Chloride IVPB 102.5 mls Q8HR SANTI Administration Morphine Sulfate 2 mg 01/27/20 02:22 02/02/20 22:24 Morphine 2 Mg/Ml Vial SLOW IVP 2 mg Q4H PRN Administration Pain Rosuvastatin Calcium 10 mg 01/28/20 21:00 02/02/20 21:32 Rosuvastatin 10 Mg Tab PO Not Given HS SANTI Sodium Chloride 10 ml 01/28/20 21:00 02/03/20 10:50 Flush - Normal Saline 10 Ml Syringe IVF 10 ml Q12HR SANTI Administration Sodium Chloride 10 ml 01/28/20 10:15 02/01/20 06:24 Flush - Normal Saline 10 Ml Syringe IVF 10 ml PRN PRN Administration Saline Flush Ziprasidone 10 mg 01/28/20 16:08 02/01/20 11:11 Ziprasidone 20 Mg Vial IM 10 mg Q2H PRN Administration Agitation - Exam General Appearance: awake alert Eye: anicteric sclera ENT: normocephalic atraumatic Neck: supple Heart: RRR Respiratory: normal chest expansion Gastrointestinal: soft Extremities: no cyanosis Skin: no rashes Psychiatric - other findings: Unable to assess Hosp A/P - Plan -Assessment (1) Acute metabolic encephalopathy Code(s): G93.41 - METABOLIC ENCEPHALOPATHY Status: Acute (2) Pelvic fracture Code(s): S32.9XXA - FRACTURE OF UNSP PARTS OF LUMBOSACRAL SPINE AND PELVIS, INIT Status: Acute Qualifiers: Encounter type: subsequent encounter Pelvic bone location: pubis Fracture type: closed Laterality: right (3) Seizures Code(s): R56.9 - UNSPECIFIED CONVULSIONS Status: Acute (4) HLD (hyperlipidemia) Code(s): E78.5 - HYPERLIPIDEMIA, UNSPECIFIED Status: Chronic (5) HTN (hypertension) Code(s): I10 - ESSENTIAL (PRIMARY) HYPERTENSION Status: Chronic Qualifiers: Hypertension type: essential hypertension Qualified Code(s): I10 - Essential (primary) hypertension (6) Dementia Code(s): F03.90 - UNSPECIFIED DEMENTIA WITHOUT BEHAVIORAL DISTURBANCE Status: Chronic Qualifiers: Dementia type: Alzheimer's disease - Plan Continue Depakote. No surgical plan for pubic rami fracture. I had a lengthy discussion with patient's regarding nutrition. Various options were discussed including NG feeds and PEG tube feeds. will make a decision after discussing with daughter.
[2020-02-03] MEDS: Clopidogrel Bisulfate 75 MG TAB PO SCH (20:54)
[2020-02-03] MEDS: clonazePAM 0.5 MG TAB PO SCH (20:55)
[2020-02-03] MEDS: Rosuvastatin 10 MG TAB PO SCH (20:58)
[2020-02-04] MEDS: Valproate Sodium 250 MG in Sodium Chloride 0.9% 100 ML IVPB SCH ×3 (05:19→20:59)
--- NOTE | 2020-02-04 13:38 | PDOC.NEUPN ---
- Subjective Encounter Date: 02/04/20 Subjective: Mr. Ocampo is much more calm today. Son at bedside. Per son, he was able to recognize his him and held his hand. He was not oriented to person place or time. - Objective Vital Signs & Weight: Vital Signs (12 hours) Temp Pulse Resp BP Pulse Ox 02/04/20 09:00 97 02/04/20 08:00 97.7 F 66 20 154/76 H 94 L Weight Admit Weight 131 lb 9.6 oz Weight 131 lb 9.6 oz I&O: 02/03/20 02/04/20 02/05/20 06:59 06:59 06:59 Intake Total 338 Balance 338 Result Diagrams: 01/29/20 05:03 01/29/20 05:03 Radiology Reviewed by me: Yes EKG Reviewed by me: Yes ROS - Review of Systems ROS unobtainable: due to mental status - Medication Medications: Active Medications Generic Name Dose Route Start Last Admin Trade Name Freq PRN Reason Stop Dose Admin Clonazepam 0.5 mg 01/28/20 21:00 02/03/20 20:55 Clonazepam 0.5 Mg Tab PO 0.5 mg HS SANTI Administration Clopidogrel Bisulfate 75 mg 01/27/20 21:00 02/03/20 20:54 Clopidogrel Bisulfate 75 Mg Tab PO 75 mg HS SANTI Administration Valproic Acid 250 mg/ Sodium 102.5 mls @ 102.5 mls/hr 01/31/20 14:00 02/04/20 05:19 Chloride IVPB 102.5 mls Q8HR SANTI Administration Morphine Sulfate 2 mg 01/27/20 02:22 02/02/20 22:24 Morphine 2 Mg/Ml Vial SLOW IVP 2 mg Q4H PRN Administration Pain Rosuvastatin Calcium 10 mg 01/28/20 21:00 02/03/20 20:58 Rosuvastatin 10 Mg Tab PO 10 mg HS SANTI Administration Sodium Chloride 10 ml 01/28/20 21:00 02/04/20 08:55 Flush - Normal Saline 10 Ml Syringe IVF 10 ml Q12HR SANTI Administration Sodium Chloride 10 ml 01/28/20 10:15 02/01/20 06:24 Flush - Normal Saline 10 Ml Syringe IVF 10 ml PRN PRN Administration Saline Flush Ziprasidone 10 mg 01/28/20 16:08 02/01/20 11:11 Ziprasidone 20 Mg Vial IM 10 mg Q2H PRN Administration Agitation - Exam General Appearance: awake alert Eye: PERRL ENT: normocephalic atraumatic Neck: supple Respiratory: CTAB Cardiovascular: RRR Gastrointestinal: soft Extremities: no cyanosis Skin: normal turgor Neurological: no focal deficits, no new deficit Musculoskeletal: normal tone, no muscle wasting PSYCH: normal affect Results - Labs Result Diagrams: 01/29/20 05:03 01/29/20 05:03 Lab results: WBC 7.5 thou/uL (4.8-10.8) 01/29/20 05:03 Hgb 14.4 g/dL (14.0-18.0) 01/29/20 05:03 Hct 40.9 % (42.0-52.0) L 01/29/20 05:03 MCV 90.4 fL (78.0-98.0) 01/29/20 05:03 Plt Count 139 thou/uL (130-400) 01/29/20 05:03 Neutrophils % 69.9 % (42.0-75.0) 01/29/20 05:03 Band Neuts % (Manual) 14 % (5-11) H 01/27/20 04:29 Sodium 137 mmol/L (136-145) 01/29/20 05:03 Potassium 4.4 mmol/L (3.5-5.1) 01/29/20 05:03 Chloride 110 mmol/L (98-107) H 01/29/20 05:03 Carbon Dioxide 14 mmol/L (23-31) L 01/29/20 05:03 BUN 17 mg/dL (8.4-25.7) 01/29/20 05:03 Creatinine 0.75 mg/dL (0.7-1.3) 01/29/20 05:03 Glucose 84 mg/dL (83-110) 01/29/20 05:03 Calcium 8.8 mg/dL (7.8-10.44) 01/29/20 05:03 Total Bilirubin 0.9 mg/dL (0.2-1.2) 01/27/20 04:29 AST 31 U/L (5-34) 01/27/20 04:29 ALT 17 U/L (8-55) 01/27/20 04:29 Alkaline Phosphatase 59 U/L (40-110) 01/27/20 04:29 Ammonia 26 umol/L (18-72) 01/26/20 13:25 Creatine Kinase 522 U/L (30-200) H 01/26/20 13:25 CK-MB (CK-2) 10.3 ng/mL (0-6.6) H* 01/26/20 13:25 Troponin I 0.038 ng/mL (< 0.028) H 01/26/20 13:25 B-Natriuretic Peptide 76.5 pg/mL (0-100) 01/26/20 13:25 Serum Total Protein 5.6 g/dL (5.8-8.1) L 01/27/20 04:29 Albumin 3.2 g/dL (3.4-4.8) L 01/27/20 04:29 Lipase 18 U/L (8-78) 01/26/20 13:25 Urine Ketones 10 mg/dL (Negative) A 01/26/20 21:13 Urine Blood Trace (Negative) A 01/26/20 21:13 Urine Nitrite Negative (Negative) 01/26/20 21:13 Ur Leukocyte Esterase Negative Jesus/uL (Negative) 01/26/20 21:13 Urine RBC 0-3 HPF (0-3) 01/26/20 21:13 Urine WBC 0-3 HPF (0-3) 01/26/20 21:13 Ur Squamous Epith Cells None Seen HPF (0-3) 01/26/20 21:13 Urine Bacteria None Seen HPF (None Seen) 01/26/20 21:13 - Radiology Interpretation MRI - head Additional Comment: Negative for acute intracranial pathology PN A/P (1) Seizures Code(s): R56.9 - UNSPECIFIED CONVULSIONS Status: Acute (2) Dementia Code(s): F03.90 - UNSPECIFIED DEMENTIA WITHOUT BEHAVIORAL DISTURBANCE Status: Chronic Qualifiers: Dementia type: Alzheimer's disease (3) Encephalopathy acute Code(s): G93.40 - ENCEPHALOPATHY, UNSPECIFIED Status: Acute (4) Migraine Code(s): G43.909 - MIGRAINE, UNSP, NOT INTRACTABLE, WITHOUT STATUS MIGRAINOSUS Status: Acute (5) Vertigo Code(s): R42 - DIZZINESS AND GIDDINESS Status: Acute (6) HLD (hyperlipidemia) Code(s): E78.5 - HYPERLIPIDEMIA, UNSPECIFIED Status: Chronic (7) HTN (hypertension) Code(s): I10 - ESSENTIAL (PRIMARY) HYPERTENSION Status: Chronic Qualifiers: Hypertension type: essential hypertension Qualified Code(s): I10 - Essential (primary) hypertension - Plan Daily Plan: plan discussed w/ family, PT/OT, speech therapy, DVT proph w/SCDs Mr. Ocampo is a 84-year-old male who presented with with seizures s/p fall. He also has history of dementia and continues to to have altered mental status. Altered mental status seems to be multifactorial but most likely secondary to advanced dementia with superimposed delirium. Zonisamide discontinued on the day of admission which may have exacerbated the altered mental status per . Mr Ocampo is more calm today and able to recognize his son. No seizures reported since admission. No new complaints since the last 24 hours. . Continue Depakote to 250 mg IV every 8 hours to help with seizures and also agitation. Patient not able to feed himself. Speech is on board. Need to assess for PEG placement. MRI of the brain reviewed which was negative for acute intracranial pathology. EEG reviewed which was negative for seizure activity. Neurochecks every 4 hours. Telemetry Observe seizure precautions. Ativan 2 mg IV for seizure greater than 2 minutes Continue home medications. PT/OT/speech. Continue medical management per primary team. Plan and the results of the testing were discussed in detail with the patient's son.
--- NOTE | 2020-02-04 18:01 | PDOC.HOSPP ---
- Subjective Encounter Date: 02/04/20 Encounter Time: 12:00 Subjective: Patient seen for follow-up regarding acute metabolic encephalopathy. Patient is confused, not answering questions, could not complete review of systems. - Objective Vital Signs & Weight: Vital Signs (12 hours) Temp Pulse Resp BP Pulse Ox 02/04/20 09:00 97 02/04/20 08:00 97.7 F 66 20 154/76 H 94 L Weight Admit Weight 131 lb 9.6 oz Weight 131 lb 9.6 oz I&O: 02/03/20 02/04/20 02/05/20 06:59 06:59 06:59 Intake Total 338 Balance 338 Result Diagrams: 01/29/20 05:03 01/29/20 05:03 Additional Labs: Labs and MAR reviewed by ok Hospitalist ROS - Review of Systems ROS unobtainable: due to mental status - Medication Medications: Active Medications Generic Name Dose Route Start Last Admin Trade Name Freq PRN Reason Stop Dose Admin Clonazepam 0.5 mg 01/28/20 21:00 02/03/20 20:55 Clonazepam 0.5 Mg Tab PO 0.5 mg HS SANTI Administration Clopidogrel Bisulfate 75 mg 01/27/20 21:00 02/03/20 20:54 Clopidogrel Bisulfate 75 Mg Tab PO 75 mg HS SANTI Administration Valproic Acid 250 mg/ Sodium 102.5 mls @ 102.5 mls/hr 01/31/20 14:00 02/04/20 14:50 Chloride IVPB 102.5 mls Q8HR SANTI Administration Morphine Sulfate 2 mg 01/27/20 02:22 02/02/20 22:24 Morphine 2 Mg/Ml Vial SLOW IVP 2 mg Q4H PRN Administration Pain Rosuvastatin Calcium 10 mg 01/28/20 21:00 02/03/20 20:58 Rosuvastatin 10 Mg Tab PO 10 mg HS SANTI Administration Sodium Chloride 10 ml 01/28/20 21:00 02/04/20 08:55 Flush - Normal Saline 10 Ml Syringe IVF 10 ml Q12HR SANTI Administration Sodium Chloride 10 ml 01/28/20 10:15 02/01/20 06:24 Flush - Normal Saline 10 Ml Syringe IVF 10 ml PRN PRN Administration Saline Flush Ziprasidone 10 mg 01/28/20 16:08 02/01/20 11:11 Ziprasidone 20 Mg Vial IM 10 mg Q2H PRN Administration Agitation - Exam General Appearance: awake alert ENT: moist mucosa Neck: supple Heart: RRR Respiratory: CTAB Gastrointestinal: soft Skin: no rashes Psychiatric - other findings: Unable to assess Hosp A/P - Plan Patient is a pleasant 84-year-old gentleman who was admitted to the hospital on January 26, 2020 for worsening mental state and frequent falls. He had 2 episodes of witnessed seizure activity, tonic-clonic. He was found to have rig ht superior and inferior pubic rami fractures, medical management recommended by orthopedic surgery service. Patient was also seen by neurology service. MRI of the brain did not show any evidence of acute intracranial process. Electroencephalogram was consistent with moderate generalized nonspecific cerebral dysfunction. It was initially felt that discontinuing zonisamide on the day of admission was the cause of his presentation. Later on Keppra, which was started for his seizures was discontinued as well and he was switched to Depakote. Patient continues to have episodes of confusion and episodes of agitation. He has a sitter by the bedside. Case management is working for finding placement. I had a lengthy discussion with his regarding nutrition. We discussed various options including NG tube feeds and PEG tube feeds. Patient's would like to discuss with children before arriving to decision, daughter was supposed to come here over the weekend. Of February 04 and . -Assessment (1) Acute metabolic encephalopathy Code(s): G93.41 - METABOLIC ENCEPHALOPATHY Status: Acute (2) Pelvic fracture Code(s): S32.9XXA - FRACTURE OF UNSP PARTS OF LUMBOSACRAL SPINE AND PELVIS, INIT Status: Acute Qualifiers: Encounter type: subsequent encounter Pelvic bone location: pubis Fracture type: closed Laterality: right (3) Seizures Code(s): R56.9 - UNSPECIFIED CONVULSIONS Status: Acute (4) HLD (hyperlipidemia) Code(s): E78.5 - HYPERLIPIDEMIA, UNSPECIFIED Status: Chronic (5) HTN (hypertension) Code(s): I10 - ESSENTIAL (PRIMARY) HYPERTENSION Status: Chronic Qualifiers: Hypertension type: essential hypertension Qualified Code(s): I10 - Essential (primary) hypertension (6) Dementia Code(s): F03.90 - UNSPECIFIED DEMENTIA WITHOUT BEHAVIORAL DISTURBANCE Status: Chronic Qualifiers: Dementia type: Alzheimer's disease (7) Moderate protein-calorie malnutrition Status: Chronic, present on admission - Plan Continue Depakote 250 mg intravenously every 6 hours. No surgical plan for pubic rami fracture. Further disposition depending on what family decides regarding nutrition.
[2020-02-04] MEDS: clonazePAM 0.5 MG TAB PO SCH (20:30)
[2020-02-04] MEDS: Clopidogrel Bisulfate 75 MG TAB PO SCH (20:30)
[2020-02-04] MEDS: Rosuvastatin 10 MG TAB PO SCH (20:30)
[2020-02-05] MEDS: Valproate Sodium 250 MG in Sodium Chloride 0.9% 100 ML IVPB SCH ×3 (05:02→21:14)
--- NOTE | 2020-02-05 08:01 | PDOC.HOSPP ---
- Subjective Encounter Date: 02/05/20 Encounter Time: 13:00 non-verbal Subjective: Patient's daughter at bedside. Patient slept well all night and sleeping most of this morning. No more agitation. Eating just a bit. Some occ cough. - Objective Vital Signs & Weight: Vital Signs (12 hours) Temp Pulse Resp BP Pulse Ox 02/05/20 07:21 98.2 F 76 16 159/87 H 100 02/04/20 20:44 100 Weight Admit Weight 131 lb 9.6 oz Weight 131 lb 9.6 oz I&O: 02/04/20 02/05/20 02/06/20 06:59 06:59 06:59 Intake Total 338 50 225 Balance 338 50 225 Result Diagrams: 01/29/20 05:03 01/29/20 05:03 Hospitalist ROS - Review of Systems ROS unobtainable: due to mental status - Medication Medications: Active Medications Generic Name Dose Route Start Last Admin Trade Name Freq PRN Reason Stop Dose Admin Clonazepam 0.5 mg 01/28/20 21:00 02/04/20 20:30 Clonazepam 0.5 Mg Tab PO 0.5 mg HS SANTI Administration Clopidogrel Bisulfate 75 mg 01/27/20 21:00 02/04/20 20:30 Clopidogrel Bisulfate 75 Mg Tab PO 75 mg HS SANTI Administration Valproic Acid 250 mg/ Sodium 102.5 mls @ 102.5 mls/hr 01/31/20 14:00 02/05/20 05:02 Chloride IVPB 102.5 mls Q8HR SANTI Administration Morphine Sulfate 2 mg 01/27/20 02:22 02/02/20 22:24 Morphine 2 Mg/Ml Vial SLOW IVP 2 mg Q4H PRN Administration Pain Rosuvastatin Calcium 10 mg 01/28/20 21:00 02/04/20 20:30 Rosuvastatin 10 Mg Tab PO 10 mg HS SANTI Administration Sodium Chloride 10 ml 01/28/20 21:00 02/04/20 20:35 Flush - Normal Saline 10 Ml Syringe IVF 10 ml Q12HR SANTI Administration Sodium Chloride 10 ml 01/28/20 10:15 02/01/20 06:24 Flush - Normal Saline 10 Ml Syringe IVF 10 ml PRN PRN Administration Saline Flush Ziprasidone 10 mg 01/28/20 16:08 02/01/20 11:11 Ziprasidone 20 Mg Vial IM 10 mg Q2H PRN Administration Agitation - Exam General Appearance: NAD General - other findings: lethargic, opens eyes a bit, not talking Heart: RRR, no murmur, no gallops, no rubs Respiratory: CTAB, no wheezes, no rales, no ronchi Gastrointestinal: soft, non-tender, non-distended, normal bowel sounds Neurological - other findings: moving all extremities Psychiatric: not oriented, lethargic Hosp A/P (1) Acute metabolic encephalopathy Code(s): G93.41 - METABOLIC ENCEPHALOPATHY Status: Acute (2) Pelvic fracture Code(s): S32.9XXA - FRACTURE OF UNSP PARTS OF LUMBOSACRAL SPINE AND PELVIS, INIT Status: Acute Qualifiers: Encounter type: subsequent encounter Pelvic bone location: pubis Fracture type: closed Laterality: right (3) Seizures Code(s): R56.9 - UNSPECIFIED CONVULSIONS Status: Acute (4) Dementia Code(s): F03.90 - UNSPECIFIED DEMENTIA WITHOUT BEHAVIORAL DISTURBANCE Status: Chronic Qualifiers: Dementia type: Alzheimer's disease (5) HLD (hyperlipidemia) Code(s): E78.5 - HYPERLIPIDEMIA, UNSPECIFIED Status: Chronic (6) HTN (hypertension) Code(s): I10 - ESSENTIAL (PRIMARY) HYPERTENSION Status: Chronic Qualifiers: Hypertension type: essential hypertension Qualified Code(s): I10 - Essential (primary) hypertension - Plan Patient with continued poor po intake. doesn't want to place PEG tube but is going to discuss with children over the weekend. Continuing on Depakote for seizures. Neurology following. Patient appears to have a rapidly progressing case of dementia over 2 years, much worse with pelvic fracture. Placement when able to arrange per case management.
[2020-02-05] MEDS: Acetaminophen 325 MG TAB PO PRN (15:09)
--- NOTE | 2020-02-05 15:59 | EKG ---
Test Reason : AMS Blood Pressure : / mmHG Vent. Rate : 064 BPM Atrial Rate : 064 BPM P-R Int : 148 ms QRS Dur : 074 ms QT Int : 438 ms P-R-T Axes : 059 056 061 degrees QTc Int : 451 ms Sinus rhythm with Premature atrial complexes Otherwise normal ECG Confirmed by YIMI AHUJA, MANISH ([id number]), business editor NOEMI RAMOS ([id number]) on 02/05/2020 3:59:39 PM Referred By: YIMI Confirmed By:MANISH GELLER MD
[2020-02-05] MEDS: clonazePAM 0.5 MG TAB PO SCH (21:36)
[2020-02-05] MEDS: Clopidogrel Bisulfate 75 MG TAB PO SCH (21:37)
[2020-02-05] MEDS: Rosuvastatin 10 MG TAB PO SCH (21:37)
[2020-02-06] MEDS: Valproate Sodium 250 MG in Sodium Chloride 0.9% 100 ML IVPB SCH ×3 (05:43→21:48)
[2020-02-06] MEDS: Acetaminophen 325 MG TAB PO PRN (10:43)
--- NOTE | 2020-02-06 17:37 | PDOC.HOSPP ---
- Subjective Encounter Date: 02/06/20 Encounter Time: 09:30 Subjective: The patient is sitting up in bed, is swallowing some pureed food with nursing but is not eating enough. decided against any artificial nutrition at this time. He does not really speak. Previously he would speak some sentences . Per , patient is hard of hearing and they haven't been able to get hearing aids to see if this would fix his speech problems He did have some trouble driving lately and has taken over driving. He also had some problems forgetting things. The states the patient saw Dr. Salas 6 months ago who told them there was not enough data to make a diagnosis of dementia Discussed hospice with the . She is looking into that will be covered by the [facility] and will make some phone calls this week - Objective Vital Signs & Weight: Vital Signs (12 hours) Temp Pulse Resp BP Pulse Ox 02/06/20 07:26 99.1 F 79 16 149/81 H 100 Weight Admit Weight 131 lb 9.6 oz Weight 131 lb 9.6 oz I&O: 02/05/20 02/06/20 02/07/20 06:59 06:59 06:59 Intake Total 50 585 Balance 50 585 Result Diagrams: 01/29/20 05:03 01/29/20 05:03 Hospitalist ROS - Review of Systems Constitutional: denies: fever, chills - Medication Medications: Active Medications Generic Name Dose Route Start Last Admin Trade Name Freq PRN Reason Stop Dose Admin Acetaminophen 650 mg 02/03/20 16:36 02/06/20 10:43 Acetaminophen 325 Mg Tab PO 650 mg Q6H PRN Administration Pain Clonazepam 0.5 mg 01/28/20 21:00 02/05/20 21:36 Clonazepam 0.5 Mg Tab PO Not Given HS SANTI Clopidogrel Bisulfate 75 mg 01/27/20 21:00 02/05/20 21:37 Clopidogrel Bisulfate 75 Mg Tab PO Not Given HS SANTI Valproic Acid 250 mg/ Sodium 102.5 mls @ 102.5 mls/hr 01/31/20 14:00 02/06/20 13:32 Chloride IVPB 102.5 mls Q8HR SANTI Administration Rosuvastatin Calcium 10 mg 01/28/20 21:00 02/05/20 21:37 Rosuvastatin 10 Mg Tab PO Not Given HS SANTI Sodium Chloride 10 ml 01/28/20 21:00 02/06/20 09:39 Flush - Normal Saline 10 Ml Syringe IVF 10 ml Q12HR SANTI Administration Sodium Chloride 10 ml 01/28/20 10:15 02/01/20 06:24 Flush - Normal Saline 10 Ml Syringe IVF 10 ml PRN PRN Administration Saline Flush Ziprasidone 10 mg 01/28/20 16:08 02/01/20 11:11 Ziprasidone 20 Mg Vial IM 10 mg Q2H PRN Administration Agitation - Exam General Appearance: awake alert General - other findings: doesnt speak. Was seen to be eating some pureed food. Malnourished Eye: PERRL, anicteric sclera ENT: normocephalic atraumatic, no oropharyngeal lesions ENT - other findings: dry mouth Neck: no JVD Heart: RRR, no murmur, no gallops, no rubs Respiratory: CTAB, no wheezes, no rales, no ronchi Gastrointestinal: soft, non-tender, non-distended, normal bowel sounds, no hepatomegaly Extremities: no cyanosis, no clubbing, no edema Hosp A/P - Plan Left Knee X ray: negative for fracture Pelvic X ray: right superior and inferior pubic rami fracture Right hip X ray: right superior and inferior pubic rami fracture CT brain: no acute disease MRI brain: no stroke This is an 84 year old male who presented with frequent falls and altered mental status. There was concern for possible seizure and he was started on depakote Acute encephalopathy - possibly related to underlying dementia versus seizure? - CT brain and MRI shows no evidence of dementia or stroke. EEG negative but questionable activity in the ED - patient is on depakote per neurology - TSH normal. Vitamin borderline at 240, folate normal. Will start daily multivitamin - family has declined any feeding tube - appreciate neurology recs. Palliative care on board, consideration of hospice - repeat labs today Pubic rami fractures - nonoperative management per ortho. Patient would need follow up in clinic in 4-6 weeks with new Xrays History of CAD - continue plavix
[2020-02-06] MEDS ORDERED: Multivitamin W/ Minerals 1 TAB PO SCH (17:45)
[2020-02-06 18:23] LABS: Mean Corpuscular HGB CONC 34.2 g/dL (32.0-36.0); Mean Corpuscular Hemoglobin 31.7 pg (27.0-31.0); Mean Corpuscular Volume 92.7 fL (78.0-98.0); Platelet Count 211 thou/uL (130-400); RBC Distribution Width 11.3 % (11.5-14.5); Red Blood Cell (RBC) Count 5.04 mill/uL (4.70-6.10); White Blood Cell (WBC) Count 16.9 thou/uL (4.8-10.8)
[2020-02-06 18:44] LABS: Anion Gap 16 mmol/L (10-20); BUN (Urea Nitrogen) 36 mg/dL (8.4-25.7); Calc. Creatinine Clearance 51 mL/min (70-130); Calcium 9.3 mg/dL (7.8-10.44); Carbon Dioxide 25 mmol/L (23-31); Chloride 113 mmol/L (98-107); Estimated GFR-MDRD 77; Glucose 120 mg/dL (83-110); Potassium 4.2 mmol/L (3.5-5.1); Sodium 150 mmol/L (136-145)
[2020-02-06] MEDS: Clopidogrel Bisulfate 75 MG TAB PO SCH (21:49)
[2020-02-06] MEDS: clonazePAM 0.5 MG TAB PO SCH ×2 (21:49→22:03)
[2020-02-06] MEDS: Rosuvastatin 10 MG TAB PO SCH ×2 (21:49→22:06)
[2020-02-07] MEDS: Valproate Sodium 250 MG in Sodium Chloride 0.9% 100 ML IVPB SCH ×3 (06:17→21:41)
[2020-02-07] MEDS: Multivitamin W/ Minerals 1 TAB PO SCH (07:51)
[2020-02-07] MEDS ORDERED: Iopamidol 370 76% 100 ML VIAL ONE (09:13)
[2020-02-07] MEDS: Dextrose 5% in Water 1,000 ML IV SCH (09:41)
[2020-02-07 10:14] LABS: Hemoglobin 16.2 g/dL (14.0-18.0); Mean Corpuscular HGB CONC 32.5 g/dL (32.0-36.0); Mean Corpuscular Volume 95.2 fL (78.0-98.0); Mean Platelet Volume 8.2 fL (7.4-10.4); Platelet Count 197 thou/uL (130-400); RBC Distribution Width 11.4 % (11.5-14.5); Red Blood Cell (RBC) Count 5.22 mill/uL (4.70-6.10); White Blood Cell (WBC) Count 12.2 thou/uL (4.8-10.8)
[2020-02-07 10:36] LABS: Anion Gap 18 mmol/L (10-20); BUN (Urea Nitrogen) 44 mg/dL (8.4-25.7); Calc. Creatinine Clearance 47 mL/min (70-130); Calcium 9.5 mg/dL (7.8-10.44); Carbon Dioxide 23 mmol/L (23-31); Chloride 117 mmol/L (98-107); Estimated GFR-MDRD 69; Glucose 120 mg/dL (83-110); Potassium 4.1 mmol/L (3.5-5.1); Sodium 154 mmol/L (136-145)
[2020-02-07] MEDS: Ampicillin/Sulbactam 3 GM in Sodium Chloride 0.9% 100 ML IVPB SCH ×3 (12:02→23:15)
--- NOTE | 2020-02-07 15:13 | CT ---
CT neck soft tissues with contrast: 02/07/2020 HISTORY: 84-year-old male with left-sided neck pain. Rule out dental infection. FINDINGS: The left submandibular gland has abnormally diffusely heterogeneously increased enhancement, very irr egular margins, and mild degree of surrounding edema. It measures approximately 4 x 2 x 2.5 cm. There is no sialolith involving the left submandibular gland or the left Petoskey's duct. There is an approximately 0.7 x 0.7 x 0.7 cm calculus at the superior edge of the contralateral right submandibular gland. The right submandibular gland has more normal pattern of enhancement compared to the left. No ductal ectasia identified. Metallic dental work causes streak artifact, obscuring some portions of the oral cavity, buccal space , and parapharyngeal and freight car [employer] delta system spaces. No definite dental abscess is identified. There is diffusely abnormally increased enhancement throughout the mucosal surfaces of the pharyngeal mucosal space of the oropharynx and supraglottic larynx. No convincing evidence of laryngeal tumor. IMPRESSION: 1. Evidence for sialadenitis of the left submandibular gland. 2. Evidence for pharyngitis. 3. Incidental finding of a moderately large calculus involving the contralateral right submandibular gland.
[2020-02-07 17:21] LABS: Anion Gap 13 mmol/L (10-20); BUN (Urea Nitrogen) 42 mg/dL (8.4-25.7); Calc. Creatinine Clearance 45 mL/min (70-130); Calcium 9.5 mg/dL (7.8-10.44); Carbon Dioxide 29 mmol/L (23-31); Chloride 115 mmol/L (98-107); Estimated GFR-MDRD 66; Glucose 116 mg/dL (83-110); Potassium 3.9 mmol/L (3.5-5.1); Sodium 153 mmol/L (136-145)
--- NOTE | 2020-02-07 18:19 | PDOC.HOSPP ---
- Subjective Encounter Date: 02/07/20 Encounter Time: 09:00 Subjective: F/u: encephalopathy, dehydration The patient is still not eating much and not very arousable but he does open his eyes. He does not communicate - Objective Vital Signs & Weight: Vital Signs (12 hours) Temp Pulse Pulse Resp BP Pulse Ox Pulse Ox 02/07/20 10:10 91 99 02/07/20 08:00 93 L 02/07/20 07:23 98.8 F 88 16 154/87 H 93 L Weight Admit Weight 131 lb 9.6 oz Weight 131 lb 9.6 oz I&O: 02/06/20 02/07/20 02/08/20 06:59 06:59 06:59 Intake Total 585 Balance 585 Result Diagrams: 02/07/20 09:45 02/07/20 16:42 Hospitalist ROS - Review of Systems Constitutional: denies: fever, chills - Medication Medications: Active Medications Generic Name Dose Route Start Last Admin Trade Name Freq PRN Reason Stop Dose Admin Acetaminophen 650 mg 02/03/20 16:36 02/06/20 10:43 Acetaminophen 325 Mg Tab PO 650 mg Q6H PRN Administration Pain Clonazepam 0.5 mg 01/28/20 21:00 02/06/20 22:03 Clonazepam 0.5 Mg Tab PO Not Given HS SANTI Clopidogrel Bisulfate 75 mg 01/27/20 21:00 02/06/20 21:49 Clopidogrel Bisulfate 75 Mg Tab PO Not Given HS SANTI Valproic Acid 250 mg/ Sodium 102.5 mls @ 102.5 mls/hr 01/31/20 14:00 02/07/20 13:54 Chloride IVPB 102.5 mls Q8HR SANTI Administration Dextrose/Water 1,000 mls @ 75 mls/hr 02/07/20 09:15 02/07/20 09:41 D5w IV 1,000 mls .[id number] SANTI Administration Ampicillin Sodium/Sulbactam 100 mls @ 200 mls/hr 02/07/20 12:00 02/07/20 1 7:36 Sodium 3 gm/ Sodium Chloride IVPB 100 mls Q6HR SANTI Administration Iron/Minerals/Multivitamins 1 tab 02/07/20 09:00 02/07/20 07:51 Multivitamin W/ Minerals 1 Tab PO 1 tab DAILY SANTI Administration Rosuvastatin Calcium 10 mg 01/28/20 21:00 02/06/20 22:06 Rosuvastatin 10 Mg Tab PO Not Given HS SANTI Sodium Chloride 10 ml 01/28/20 21:00 02/07/20 07:51 Flush - Normal Saline 10 Ml Syringe IVF 10 ml Q12HR SANTI Administration Sodium Chloride 10 ml 01/28/20 10:15 02/01/20 06:24 Flush - Normal Saline 10 Ml Syringe IVF 10 ml PRN PRN Administration Saline Flush Ziprasidone 10 mg 01/28/20 16:08 02/01/20 11:11 Ziprasidone 20 Mg Vial IM 10 mg Q2H PRN Administration Agitation - Exam General Appearance: NAD, awake alert Eye: PERRL, anicteric sclera ENT: normocephalic atraumatic, no oropharyngeal lesions ENT - other findings: multiple necrotic teeth. Very dry mouth Neck: no JVD Neck - other findings: left submandibular area very tender to palpation Heart: RRR, no murmur, no gallops, no rubs Respiratory: CTAB, no wheezes, no rales, no ronchi Gastrointestinal: soft, non-tender, non-distended, normal bowel sounds Extremities: no cyanosis, no clubbing, no edema Skin: normal turgor, no lesions, no rashes Neurological: cranial nerve grossly intact, normal sensation to touch, no focal deficits, no new deficit Hosp A/P - Plan Left Knee X ray: negative for fracture Pelvic X ray: right superior and inferior pubic rami fracture Right hip X ray: right superior and inferior pubic rami fracture CT brain: no acute disease MRI brain: no stroke CT soft tissue neck: sialdadenitis of the left submandibular gland. Pharyngitis. Moderately large calculus involving the contralateral right submandibular gland This is an 84 year old male who presented with frequent falls and altered mental status. There was concern for possible seizure and he was started on depakote Acute encephalopathy - possibly secondary to sialadenitis - CT brain and MRI shows no evidence of dementia or stroke. EEG negative but questionable activity in the ED - patient is on depakote per neurology - TSH normal. Vitamin borderline at 240, folate normal. Continue multivitamin - family has declined any feeding tube - palliative care is following, DNR/DNI form has been ordered #Sialadenitis of the left submandibular gland #Right submandibular gland calculus -will start IV unasyn - apply warm compress and massage the area. Hypernatremia - sodium has gone up to 150. Started D5W Multiple dental caries - Dr. Serna has evaluated the patient, may need dental treatment at some point, but nothing urgent and recommended antibiotics Pubic rami fractures - nonoperative management per ortho. Patient would need follow up in clinic in 4-6 weeks with new Xrays History of CAD - continue plavix
[2020-02-07] MEDS: clonazePAM 0.5 MG TAB PO SCH (21:32)
[2020-02-07] MEDS: Rosuvastatin 10 MG TAB PO SCH (21:32)
[2020-02-07] MEDS: Clopidogrel Bisulfate 75 MG TAB PO SCH (21:32)
[2020-02-08] MEDS: Valproate Sodium 250 MG in Sodium Chloride 0.9% 100 ML IVPB SCH ×3 (05:27→23:05)
[2020-02-08] MEDS: Ampicillin/Sulbactam 3 GM in Sodium Chloride 0.9% 100 ML IVPB SCH ×3 (05:27→17:50)
[2020-02-08] MEDS: Dextrose 5% in Water 1,000 ML IV SCH ×3 (05:30→21:40)
[2020-02-08 06:05] LABS: Mean Corpuscular HGB CONC 32.8 g/dL (32.0-36.0); Mean Corpuscular Hemoglobin 31.1 pg (27.0-31.0); Mean Corpuscular Volume 94.9 fL (78.0-98.0); Mean Platelet Volume 8.1 fL (7.4-10.4); Platelet Count 198 thou/uL (130-400); RBC Distribution Width 11.4 % (11.5-14.5); Red Blood Cell (RBC) Count 4.83 mill/uL (4.70-6.10); White Blood Cell (WBC) Count 13.7 thou/uL (4.8-10.8)
[2020-02-08 06:23] LABS: Anion Gap 15 mmol/L (10-20); BUN (Urea Nitrogen) 43 mg/dL (8.4-25.7); Calc. Creatinine Clearance 43 mL/min (70-130); Calcium 8.9 mg/dL (7.8-10.44); Carbon Dioxide 25 mmol/L (23-31); Chloride 119 mmol/L (98-107); Estimated GFR-MDRD 63; Glucose 150 mg/dL (83-110); Potassium 3.6 mmol/L (3.5-5.1); Sodium 155 mmol/L (136-145)
[2020-02-08] MEDS: Multivitamin W/ Minerals 1 TAB PO SCH (10:10)
--- NOTE | 2020-02-08 12:16 | CON ---
DATE OF CONSULTATION: REASON FOR CONSULTATION: Possible dental abscess. CHIEF COMPLAINT/HISTORY OF PRESENT ILLNESS: This is an 84-year-old male with a decline in mental status over the last several days, admitted to the hospital with an elevated white count and altered mental status. Currently, I am seeing the patient in his room. He is uncooperative. Does withdraw to painful stimuli and localized to painful stimuli. Per family, it was noted that he had seizure-like activity on several occasions prior to arrival to the hospital. He has been placed inpatient and been on IV fluids and antibiotics. REVIEW OF SYSTEMS: Not obtainable due to patient's mental status. PAST MEDICAL HISTORY: History of hypertension and possible history of dementia. FAMILY HISTORY: Diabetes. SOCIAL HISTORY: Nonsmoker. Family reports no alcohol. Lives with family. PHYSICAL EXAMINATION: His vital signs are stable. He is afebrile. He does have a left neck tenderness in the submandibular region and a palpably enlarged left submandibular mass. His oral exam is limited, but I was able to get in and palpate all the teeth, found no tender teeth or intraoral swelling. LABORATORY DATA: His current white count is 13.7. CT scan of the face and neck was done. I see no periapical abscesses. I do; however, see a left submandibular gland swelling and enlargement. No identifiable fluid collection. ASSESSMENT: An 84-year-old male with altered mental status with left submandibular gland sialoadenitis. PLAN: Recommend IV antibiotics, Unasyn appears to be a good choice. IV hydration as needed. Job ID: [id number]
[2020-02-08] MEDS: Acetaminophen 325 MG TAB PO PRN (13:12)
--- NOTE | 2020-02-08 16:46 | PDOC.HOSPP ---
- Subjective Encounter Date: 02/08/20 Encounter Time: 09:00 Subjective: F/u: lethargy The patient is still lethargic. He opens his eyes only some. He does not answer any questions - Objective Vital Signs & Weight: Vital Signs (12 hours) Temp Pulse Resp BP Pulse Ox 02/08/20 08:00 100 02/08/20 07:22 98.5 F 79 24 H 142/81 H 100 Weight Admit Weight 131 lb 9.6 oz Weight 131 lb 9.6 oz I&O: 02/07/20 02/08/20 02/09/20 06:59 06:59 06:59 Intake Total 1010 Balance 1010 Result Diagrams: 02/08/20 05:51 02/08/20 05:51 Hospitalist ROS - Review of Systems Constitutional: denies: fever, chills - Medication Medications: Active Medications Generic Name Dose Route Start Last Admin Trade Name Freq PRN Reason Stop Dose Admin Acetaminophen 650 mg 02/03/20 16:36 02/08/20 13:12 Acetaminophen 325 Mg Tab PO 650 mg Q6H PRN Administration Pain Clopidogrel Bisulfate 75 mg 01/27/20 21:00 02/07/20 21:32 Clopidogrel Bisulfate 75 Mg Tab PO Not Given HS SANTI Valproic Acid 250 mg/ Sodium 102.5 mls @ 102.5 mls/hr 01/31/20 14:00 02/08/20 13:15 Chloride IVPB 102.5 mls Q8HR SANTI Administration Ampicillin Sodium/Sulbactam 100 mls @ 200 mls/hr 02/07/20 12:00 02/08/20 11:02 Sodium 3 gm/ Sodium Chloride IVPB 100 mls Q6HR SANTI Administration Dextrose/Water 1,000 mls @ 100 mls/hr 02/08/20 10:15 02/08/20 11:03 D5w IV Not Given .Q10H SANTI Iron/Minerals/Multivitamins 1 tab 02/07/20 09:00 02/08/20 10:10 Multivitamin W/ Minerals 1 Tab PO Not Given DAILY SANTI Rosuvastatin Calcium 10 mg 01/28/20 21:00 02/07/20 21:32 Rosuvastatin 10 Mg Tab PO Not Given HS SANTI Sodium Chloride 10 ml 01/28/20 21:00 02/08/20 10:10 Flush - Normal Saline 10 Ml Syringe IVF Not Given Q12HR SANTI Sodium Chloride 10 ml 01/28/20 10:15 02/01/20 06:24 Flush - Normal Saline 10 Ml Syringe IVF 10 ml PRN PRN Administration Saline Flush Ziprasidone 10 mg 01/28/20 16:08 02/01/20 11:11 Ziprasidone 20 Mg Vial IM 10 mg Q2H PRN Administration Agitation - Exam General Appearance: NAD, awake alert Eye: PERRL, anicteric sclera ENT: normocephalic atraumatic, no oropharyngeal lesions ENT - other findings: dry mouth, necrotic teeth Neck: no JVD Heart: RRR, no murmur, no gallops, no rubs Respiratory: CTAB, no wheezes, no rales, no ronchi Gastrointestinal: soft, non-tender, non-distended, normal bowel sounds Extremities: no cyanosis, no clubbing, no edema Skin: normal turgor, no lesions, no rashes Neurological: cranial nerve grossly intact, normal sensation to touch, no weakness Musculoskeletal: normal tone, normal strength, no muscle wasting Psychiatric: normal affect, normal behavior, A&O x 3 Hosp A/P - Plan Left Knee X ray: negative for fracture Pelvic X ray: right superior and inferior pubic rami fracture Right hip X ray: right superior and inferior pubic rami fracture CT brain: no acute disease MRI brain: no stroke CT soft tissue neck: sialdadenitis of the left submandibular gland. Pharyngitis. Moderately large calculus involving the contralateral right submandibular gland This is an 84 year old male who presented with frequent falls and altered mental status. There was concern for possible seizure and he was started on depakote Acute encephalopathy - possibly secondary to sialadenitis along with hypernatrem ia and dehydration - CT brain and MRI shows no evidence of dementia or stroke. EEG negative but que stionable activity in the ED. Patient is on depakote per neurology - TSH normal. Vitamin borderline at 240, folate normal. Continue multivitamin - family has declined any feeding tube - palliative care is following, DNR/DNI form has been ordered - he was started on antibiotics for siialedenitis, will continue for now - continue IV fluids Hypernatremia - sodium is up to 155. Will increase D5W to 100/hour #Sialadenitis of the left submandibular gland #Right submandibular gland calculus -continue IV unasyn - apply warm compress and massage the area. Multiple dental caries - Dr. Serna has evaluated the patient, may need dental treatment at some point, but nothing urgent and recommended antibiotics Pubic rami fractures - nonoperative management per ortho. Patient would need follow up in clinic in 4-6 weeks with new Xrays History of CAD - continue plavix Dispo: pending improvement in hypernatremia, mental status
[2020-02-08] MEDS: Rosuvastatin 10 MG TAB PO SCH (21:41)
[2020-02-08] MEDS: Clopidogrel Bisulfate 75 MG TAB PO SCH (21:41)
[2020-02-09] MEDS: Ampicillin/Sulbactam 3 GM in Sodium Chloride 0.9% 100 ML IVPB SCH ×4 (00:52→18:12)
[2020-02-09] MEDS: Valproate Sodium 250 MG in Sodium Chloride 0.9% 100 ML IVPB SCH ×3 (06:48→23:15)
[2020-02-09] MEDS: Dextrose 5% in Water 1,000 ML IV SCH ×3 (07:00→19:06)
[2020-02-09] MEDS: Multivitamin W/ Minerals 1 TAB PO SCH (08:37)
[2020-02-09 09:45] LABS: Hemoglobin 14.3 g/dL (14.0-18.0); Mean Corpuscular HGB CONC 31.9 g/dL (32.0-36.0); Mean Corpuscular Hemoglobin 30.7 pg (27.0-31.0); Mean Corpuscular Volume 96.2 fL (78.0-98.0); Mean Platelet Volume 8.5 fL (7.4-10.4); Platelet Count 182 thou/uL (130-400); RBC Distribution Width 11.3 % (11.5-14.5); Red Blood Cell (RBC) Count 4.66 mill/uL (4.70-6.10)
[2020-02-09 10:01] LABS: Anion Gap 12 mmol/L (10-20); BUN (Urea Nitrogen) 35 mg/dL (8.4-25.7); Calc. Creatinine Clearance 57 mL/min (70-130); Calcium 8.5 mg/dL (7.8-10.44); Carbon Dioxide 30 mmol/L (23-31); Chloride 115 mmol/L (98-107); Estimated GFR-MDRD 86; Glucose 146 mg/dL (83-110); Potassium 3.3 mmol/L (3.5-5.1); Sodium 154 mmol/L (136-145)
--- NOTE | 2020-02-09 18:29 | PDOC.HOSPP ---
- Subjective Encounter Date: 02/09/20 Encounter Time: 09:00 Subjective: The patient is still lethargic. He opens his eyes and follows some commands. He moves all four extremities I spoke with his who wants to try IV nutrition for a few days to see if it helps - Objective Vital Signs & Weight: Vital Signs (12 hours) Temp Pulse Resp BP Pulse Ox 02/09/20 09:00 99 02/09/20 07:09 97.9 F 70 20 159/71 H 99 Weight Admit Weight 131 lb 9.6 oz Weight 131 lb 9.6 oz I&O: 02/08/20 02/09/20 02/10/20 06:59 06:59 06:59 Intake Total 1010 1000 Balance 1010 1000 Result Diagrams: 02/09/20 09:17 02/09/20 09:17 Hospitalist ROS - Review of Systems ROS unobtainable: due to mental status - Medication Medications: Active Medications Generic Name Dose Route Start Last Admin Trade Name Freq PRN Reason Stop Dose Admin Acetaminophen 650 mg 02/03/20 16:36 02/08/20 13:12 Acetaminophen 325 Mg Tab PO 650 mg Q6H PRN Administration Pain Clopidogrel Bisulfate 75 mg 01/27/20 21:00 02/08/20 21:41 Clopidogrel Bisulfate 75 Mg Tab PO Not Given HS SANTI Valproic Acid 250 mg/ Sodium 102.5 mls @ 102.5 mls/hr 01/31/20 14:00 02/09/20 15:00 Chloride IVPB 102.5 mls Q8HR SANTI Administration Ampicillin Sodium/Sulbactam 100 mls @ 200 mls/hr 02/07/20 12:00 02/09/20 18:12 Sodium 3 gm/ Sodium Chloride IVPB 100 mls Q6HR SANTI Administration Dextrose/Water 1,000 mls @ 125 mls/hr 02/09/20 10:30 02/09/20 11:13 D5w IV 1,000 mls .Q8H SANTI Administration Iron/Minerals/Multivitamins 1 tab 02/07/20 09:00 02/09/20 08:37 Multivitamin W/ Minerals 1 Tab PO Not Given DAILY SANTI Rosuvastatin Calcium 10 mg 01/28/20 21:00 02/08/20 21:41 Rosuvastatin 10 Mg Tab PO Not Given HS SANTI Sodium Chloride 10 ml 01/28/20 21:00 02/09/20 08:37 Flush - Normal Saline 10 Ml Syringe IVF Not Given Q12HR SANTI Sodium Chloride 10 ml 01/28/20 10:15 02/01/20 06:24 Flush - Normal Saline 10 Ml Syringe IVF 10 ml PRN PRN Administration Saline Flush Ziprasidone 10 mg 01/28/20 16:08 02/01/20 11:11 Ziprasidone 20 Mg Vial IM 10 mg Q2H PRN Administration Agitation - Exam General Appearance: NAD, awake alert General - other findings: lethargic, non-verbal Eye: PERRL, anicteric sclera ENT: normocephalic atraumatic, no oropharyngeal lesions ENT - other findings: very dry mouth Neck: no JVD Heart: RRR, no murmur, no gallops, no rubs Respiratory: CTAB, no wheezes, no rales, no ronchi Gastrointestinal: soft, non-tender, non-distended, normal bowel sounds Extremities: no cyanosis, no clubbing, no edema Skin: normal turgor, no lesions, no rashes Neurological: cranial nerve grossly intact, normal sensation to touch, no weakness Musculoskeletal: normal tone, normal strength, no muscle wasting Psychiatric: normal behavior Hosp A/P - Plan Left Knee X ray: negative for fracture Pelvic X ray: right superior and inferior pubic rami fracture Right hip X ray: right superior and inferior pubic rami fracture CT brain: no acute disease MRI brain: no stroke CT soft tissue neck: sialdadenitis of the left submandibular gland. Pharyngitis. Moderately large calculus involving the contralateral right submandibular gland This is an 84 year old male who presented with frequent falls and altered mental status. There was concern for possible seizure and he was started on depakote Acute encephalopathy - possibly secondary to sialadenitis along with hypernatremia and dehydration - CT brain and MRI shows no evidence of dementia or stroke. EEG negative but questionable activity in the ED. Patient is on depakote per neurology - TSH normal. Vitamin borderline at 240, folate normal. Continue multivitamin - palliative care is following, DNR/DNI form has been ordered - he was started on unasyn. Will add IV vancomycin to cover for possible staph. Will obtain blood cultures due to high white count -will start PPN for nutrition to see if it helps Hypernatremia - sodium is up to 154. Increased D5W to 125 ml/hour - discussed with family who are interested in starting PPN #Sialadenitis of the left submandibular gland #Right submandibular gland calculus -continue IV unasyn, will add IV vancomycin - apply warm compress and massage the area. Multiple dental caries - Dr. Serna has evaluated the patient, may need dental treatment at some point, but nothing urgent and recommended antibiotics Pubic rami fractures - nonoperative management per ortho. Patient would need follow up in clinic in 4-6 weeks with new Xrays History of CAD - continue plavix Dispo: will trial of PPN for a few days per family request to see if his mental status improve s
[2020-02-09] MEDS: Rosuvastatin 10 MG TAB PO SCH (20:46)
[2020-02-09] MEDS: Vancomycin 1 GM in Premix Bag 1 BAG IVPB SCH (20:46)
[2020-02-09] MEDS: Clopidogrel Bisulfate 75 MG TAB PO SCH (20:46)
[2020-02-10] MEDS: Ampicillin/Sulbactam 3 GM in Sodium Chloride 0.9% 100 ML IVPB SCH ×4 (00:55→17:35)
[2020-02-10] MEDS: Dextrose 5% in Water 1,000 ML IV SCH ×3 (03:51→23:13)
[2020-02-10] MEDS: Valproate Sodium 250 MG in Sodium Chloride 0.9% 100 ML IVPB SCH ×3 (05:52→22:55)
[2020-02-10] MEDS: Vancomycin 1 GM in Premix Bag 1 BAG IVPB SCH ×2 (09:02→22:00)
[2020-02-10] MEDS: Multivitamin W/ Minerals 1 TAB PO SCH (09:02)
--- NOTE | 2020-02-10 11:40 | CT ---
CT neck soft tissues with contrast: 02/10/2020 HISTORY: 84-year-old male with sialolithiasis. Bilateral neck pain. COMPARISON: 02/07/2020 FINDINGS: No interval change in the abnormally diffusely heterogeneously increased enhancement and very irregul ar margins, of the left submandibular gland. No sialolith identified involving left submandibular duct. 7 mm calculus at superior edge of contralateral right submandibular gland. Diffusely increased enhancement throughout the mucosal surfaces of the pharyngeal mucosal space of th e oropharynx and supraglottic larynx. No cervical lymphadenopathy. No abscess. No interval change overall. IMPRESSION: 1. Abnormal left submandibular gland. 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 Therefore, follow-up CT of the neck with contrast is recommended in 3 months. 2. Evidence for pharyngitis. 3. Moderate size calculus at contralateral right submandibular gland.
[2020-02-10] MEDS: D5W-AA 4.25% with LYTES 1,000 ML IV SCH (13:43)
[2020-02-10] MEDS ORDERED: Iopamidol-370 76% 500 ML 1 ML ONE (14:58)
[2020-02-10 17:07] LABS: Bacteria/HPF None Seen HPF (None Seen); Bilirubin Negative (Negative); Blood, Urine 1+ (Negative); Clarity Clear (Clear); Glucose, Urine (Dipstick) Normal (Negative); Ketone, Urine Negative (Negative); Leukocyte Negative Leu/uL (Negative); Nitrite Negative (Negative); Protein, Urine (Dipstick) 20 mg/dL (Neg-Trace); Specific Gravity, Urine 1.038 (1.002-1.036); Squamous Epithelial 0-3 HPF (0-3); Urobilinogen Normal mg/dL (Less than 2); pH, Urine 6.5 (5.0-9.0)
[2020-02-10 17:12] LABS: Urine Culture Reflex Yes Yes
--- NOTE | 2020-02-10 17:13 | PDOC.HOSPP ---
- Subjective Encounter Date: 02/10/20 Encounter Time: 09:35 Subjective: CC: sialedonitis The patient does awaken to voice, but still non-verbal. He does follow some commands . PPN had not been started yet overnight. Discussed with ENT who recommended considerin repeat CT neck. REpeat CT showing persistent sialodenitis versus salivary tumor - Objective Vital Signs & Weight: Vital Signs (12 hours) Temp Pulse Resp BP Pulse Ox 02/10/20 08:00 98.3 F 67 22 H 146/83 H 100 Weight Admit Weight 131 lb 9.6 oz Weight 131 lb 9.6 oz I&O: 02/09/20 02/10/20 02/11/20 06:59 06:59 06:59 Intake Total 1000 Balance 1000 Result Diagrams: 02/09/20 09:17 02/09/20 09:17 Hospitalist ROS - Review of Systems Constitutional: denies: fever, chills - Medication Medications: Active Medications Generic Name Dose Route Start Last Admin Trade Name Freq PRN Reason Stop Dose Admin Acetaminophen 650 mg 02/03/20 16:36 02/08/20 13:12 Acetaminophen 325 Mg Tab PO 650 mg Q6H PRN Administration Pain Clopidogrel Bisulfate 75 mg 01/27/20 21:00 02/09/20 20:46 Clopidogrel Bisulfate 75 Mg Tab PO Not Given HS SANTI Valproic Acid 250 mg/ Sodium 102.5 mls @ 102.5 mls/hr 01/31/20 14:00 02/10/20 16:55 Chloride IVPB 102.5 mls Q8HR SANTI Administration Ampicillin Sodium/Sulbactam 100 mls @ 200 mls/hr 02/07/20 12:00 02/10/20 12:19 Sodium 3 gm/ Sodium Chloride IVPB 100 mls Q6HR SANTI Administration Dextrose/Water 1,000 mls @ 125 mls/hr 02/09/20 10:30 02/10/20 10:30 D5w IV Not Given .Q8H SANTI Vancomycin HCl 1 gm/ Device 200 mls @ 200 mls/hr 02/09/20 20:00 02/10/20 09:02 IVPB 200 mls 0800,2000 SANTI Administration Amino Acids/Electrolytes/Dextrose 1,000 mls @ 100 mls/hr 02/10/20 11:15 02/10/20 13:43 Clinimix E 4.25/5 IV 1,000 mls INF SANTI Administration Iron/Minerals/Multivitamins 1 tab 02/07/20 09:00 02/10/20 09:02 Multivitamin W/ Minerals 1 Tab PO Not Given DAILY SANTI Rosuvastatin Calcium 10 mg 01/28/20 21:00 02/09/20 20:46 Rosuvastatin 10 Mg Tab PO Not Given HS SANTI Sodium Chloride 10 ml 01/28/20 21:00 02/10/20 09:02 Flush - Normal Saline 10 Ml Syringe IVF Not Given Q12HR SANTI Sodium Chloride 10 ml 01/28/20 10:15 02/01/20 06:24 Flush - Normal Saline 10 Ml Syringe IVF 10 ml PRN PRN Administration Saline Flush Ziprasidone 10 mg 01/28/20 16:08 02/01/20 11:11 Ziprasidone 20 Mg Vial IM 10 mg Q2H PRN Administration Agitation - Exam General - other findings: lethargic ENT: normocephalic atraumatic, no oropharyngeal lesions ENT - other findings: multiple black teeth and missin teeth. Dry mouth Neck: no JVD Neck - other findings: bilateral neck tenderness, worst on the left. Mild swelling on left Heart: RRR, no murmur, no gallops, no rubs Respiratory: CTAB, no wheezes, no rales, no ronchi Gastrointestinal: soft, non-tender, non-distended, no bruit Extremities: no cyanosis, no clubbing, no edema Skin: normal turgor, no lesions, no rashes Hosp A/P - Plan Left Knee X ray: negative for fracture Pelvic X ray: right superior and inferior pubic rami fracture Right hip X ray: right superior and inferior pubic rami fracture CT brain: no acute disease MRI brain: no stroke CT soft tissue neck: sialdadenitis of the left submandibular gland. Pharyngitis. Moderately large calculus involving the contralateral right submandibular gland CT soft tissue neck: sialadenitis versus salivary gland tumor . Pharyngitis. Moderate size calculus contralateral right submandibular gland This is an 84 year old male who presented with frequent falls and altered mental status. There was concern for possible seizure and he was started on depakote Acute encephalopathy - possibly secondary to sialadenitis along with hypernatremia and dehydration - CT brain and MRI shows no evidence of dementia or stroke. EEG negative but questionable activity in the ED. Patient is on depakote per neurology - TSH normal. Vitamin borderline at 240, folate normal. Continue multivitamin - palliative care is following, DNR/DNI form has been ordered - he was started on unasyn. Vancomycin added 02/09. Blood cultures are negative. -02/09: PPN started today to see if it improves his mental status. Repeat BMP ordered for today . Depakote level low #Sialadenitis of the left submandibular gland #Right submandibular gland calculus -continue IV unasyn, will add IV vancomycin - apply warm compress and massage the area. - repeat CT neck shows salivary tumor versus persistent sialodenitis. ENT consulted Hypernatremia - sodium was 154 02/08. D5W increased to 125 ml/hour. PPN started this morning. Will repeat BMP Multiple dental caries - Dr. Serna has evaluated the patient, may need dental treatment at some point, but nothing urgent and recommended antibiotics Pubic rami fractures - nonoperative management per ortho. Patient would need follow up in clinic in 4-6 weeks with new Xrays History of CAD - continue plavix Dispo: will trial of PPN for a few days per family request to see if his mental status improve s
[2020-02-10 17:54] LABS: Hemoglobin 13.7 g/dL (14.0-18.0); Mean Corpuscular HGB CONC 31.8 g/dL (32.0-36.0); Mean Corpuscular Hemoglobin 30.4 pg (27.0-31.0); Mean Corpuscular Volume 95.4 fL (78.0-98.0); RBC Distribution Width 11.2 % (11.5-14.5); Red Blood Cell (RBC) Count 4.52 mill/uL (4.70-6.10); White Blood Cell (WBC) Count 11.8 thou/uL (4.8-10.8)
[2020-02-10 17:55] LABS: Mean Platelet Volume 8.7 fL (7.4-10.4); Platelet Count 184 thou/uL (130-400)
[2020-02-10 18:13] LABS: Anion Gap 13 mmol/L (10-20); BUN (Urea Nitrogen) 28 mg/dL (8.4-25.7); Calc. Creatinine Clearance 55 mL/min (70-130); Calcium 8.4 mg/dL (7.8-10.44); Carbon Dioxide 26 mmol/L (23-31); Chloride 116 mmol/L (98-107); Estimated GFR-MDRD 84; Glucose 121 mg/dL (83-110); Potassium 3.2 mmol/L (3.5-5.1); Sodium 152 mmol/L (136-145)
[2020-02-10] MEDS: Clopidogrel Bisulfate 75 MG TAB PO SCH (23:10)
[2020-02-10] MEDS: Rosuvastatin 10 MG TAB PO SCH (23:10)
[2020-02-11] MEDS: D5W-AA 4.25% with LYTES 1,000 ML IV SCH ×2 (00:42→14:49)
[2020-02-11] MEDS: Ampicillin/Sulbactam 3 GM in Sodium Chloride 0.9% 100 ML IVPB SCH ×4 (00:43→17:18)
[2020-02-11] MEDS: Dextrose 5% in Water 1,000 ML IV SCH ×3 (06:31→21:29)
[2020-02-11] MEDS: Valproate Sodium 250 MG in Sodium Chloride 0.9% 100 ML IVPB SCH ×4 (06:31→21:25)
[2020-02-11] MEDS ORDERED: Potassium Chloride 20 MEQ TAB PO SCH (07:30)
[2020-02-11 07:38] LABS: Vancomycin, Trough 21.5 ug/mL
[2020-02-11 07:47] LABS: Hemoglobin 12.8 g/dL (14.0-18.0); Mean Corpuscular HGB CONC 32.1 g/dL (32.0-36.0); Mean Corpuscular Hemoglobin 30.6 pg (27.0-31.0); Mean Corpuscular Volume 95.6 fL (78.0-98.0); Mean Platelet Volume 8.6 fL (7.4-10.4); Platelet Count 166 thou/uL (130-400); RBC Distribution Width 11.2 % (11.5-14.5); Red Blood Cell (RBC) Count 4.17 mill/uL (4.70-6.10)
[2020-02-11 08:11] LABS: Anion Gap 13 mmol/L (10-20); BUN (Urea Nitrogen) 33 mg/dL (8.4-25.7); Calc. Creatinine Clearance 63 mL/min (70-130); Calcium 7.8 mg/dL (7.8-10.44); Carbon Dioxide 23 mmol/L (23-31); Chloride 115 mmol/L (98-107); Estimated GFR-MDRD Greater than 90; Glucose 118 mg/dL (83-110); Potassium 3.4 mmol/L (3.5-5.1); Sodium 148 mmol/L (136-145)
[2020-02-11] MEDS: Vancomycin 1 GM in Premix Bag 1 BAG IVPB SCH ×2 (08:11→21:26)
[2020-02-11] MEDS ORDERED: Potassium Chloride 20 MEQ/100 ML PREMIX BAG IVPB SCH (08:30)
[2020-02-11] MEDS ORDERED: Potassium Chloride 20 MEQ in Premix Bag 1 BAG IVPB SCH (08:45)
[2020-02-11] MEDS: Multivitamin W/ Minerals 1 TAB PO SCH (09:23)
[2020-02-11] MEDS ORDERED: Acetaminophen 325 MG Suppository PR PRN (11:47)
[2020-02-11] MEDS ORDERED: Acetaminophen 325 MG TAB PO PRN (11:51)
--- NOTE | 2020-02-11 12:25 | PDOC.HOSPP ---
- Subjective Encounter Date: 02/11/20 Encounter Time: 08:00 Subjective: F/u: AMS The patient opens eyes to command but still does not speak. He is still lethargic and unable to eat. ENT saw the patient yesterday and is concerned about neoplasm. They recommended an outpatient biopsy - Objective Vital Signs & Weight: Vital Signs (12 hours) Temp Pulse Resp BP Pulse Ox 02/11/20 08:15 99 02/11/20 07:08 97.9 F 58 L 18 128/67 99 Weight Admit Weight 131 lb 9.6 oz Weight 131 lb 9.6 oz I&O: 02/10/20 02/11/20 02/12/20 06:59 06:59 06:59 Intake Total 1000 1000 Balance 1000 1000 Result Diagrams: 02/11/20 07:38 02/11/20 07:38 Hospitalist ROS - Review of Systems Constitutional: denies: fever, chills - Medication Medications: Active Medications Generic Name Dose Route Start Last Admin Trade Name Freq PRN Reason Stop Dose Admin Clopidogrel Bisulfate 75 mg 01/27/20 21:00 02/10/20 23:10 Clopidogrel Bisulfate 75 Mg Tab PO Not Given HS SANTI Valproic Acid 250 mg/ Sodium 102.5 mls @ 102.5 mls/hr 01/31/20 14:00 02/11/20 08:08 Chloride IVPB 102.5 mls Q8HR SANTI Administration Ampicillin Sodium/Sulbactam 100 mls @ 200 mls/hr 02/07/20 12:00 02/11/20 12:10 Sodium 3 gm/ Sodium Chloride IVPB 100 mls Q6HR SANTI Administration Dextrose/Water 1,000 mls @ 125 mls/hr 02/09/20 10:30 02/11/20 12:10 D5w IV 1,000 mls .Q8H SANTI Administration Vancomycin HCl 1 gm/ Device 200 mls @ 200 mls/hr 02/09/20 20:00 02/11/20 08:11 IVPB Not Given 799,1999 SANTI Amino Acids/Electrolytes/Dextrose 1,000 mls @ 100 mls/hr 02/10/20 11:15 02/11/20 00:42 Clinimix E 4.25/5 IV 1,000 mls INF SANTI Administration Iron/Minerals/Multivitamins 1 tab 02/07/20 09:00 02/11/20 09:23 Multivitamin W/ Minerals 1 Tab PO Not Given DAILY SANTI Rosuvastatin Calcium 10 mg 01/28/20 21:00 02/10/20 23:10 Rosuvastatin 10 Mg Tab PO Not Given HS SANTI Sodium Chloride 10 ml 01/28/20 21:00 02/11/20 08:14 Flush - Normal Saline 10 Ml Syringe IVF Not Given Q12HR SANTI Sodium Chloride 10 ml 01/28/20 10:15 02/01/20 06:24 Flush - Normal Saline 10 Ml Syringe IVF 10 ml PRN PRN Administration Saline Flush Ziprasidone 10 mg 01/28/20 16:08 02/01/20 11:11 Ziprasidone 20 Mg Vial IM 10 mg Q2H PRN Administration Agitation - Exam General Appearance: NAD, awake alert Eye: PERRL, anicteric sclera ENT: normocephalic atraumatic, no oropharyngeal lesions ENT - other findings: dry mouth Neck: no JVD Heart: RRR, no murmur, no gallops, no rubs Respiratory: CTAB, no wheezes, no rales, no ronchi Gastrointestinal: soft, non-tender, non-distended, normal bowel sounds Extremities: no cyanosis, no clubbing, no edema Skin: normal turgor, no lesions, no rashes Neurological: cranial nerve grossly intact, normal sensation to touch, no focal deficits, no new deficit Musculoskeletal: normal tone, normal strength, no muscle wasting Hosp A/P - Plan Left Knee X ray: negative for fracture Pelvic X ray: right superior and inferior pubic rami fracture Right hip X ray: right superior and inferior pubic rami fracture CT brain: no acute disease MRI brain: no stroke CT soft tissue neck: sialdadenitis of the left submandibular gland. Pharyngitis. Moderately large calculus involving the contralateral right submandibular gland CT soft tissue neck: sialadenitis versus salivary gland tumor . Pharyngitis. Moderate size calculus contralateral right submandibular gland This is an 84 year old male who presented with frequent falls and altered mental status. There was concern for possible seizure and he was started on depakote Acute encephalopathy - possibly secondary to sialadenitis along with hypernatremia and dehydration - CT brain and MRI shows no evidence of dementia or stroke. EEG negative but questionable activity in the ED. Patient is on depakote per neurology - TSH normal. Vitamin borderline at 240, folate normal. Continue multivitamin - palliative care is following, DNR/DNI form has been ordered - he was started on antibiotics for sialodenitis. Blood cultures are negative. -02/09: PPN started -02/10: continue PPN and IV fluids until hypernatremia resolves. 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 Started IV unasyn, vancomycin added 02/09. Leukocytosis has resolved. - apply warm compress. Repeat CT neck shows salivary tumor versus persistent sialodenitis. ENT consulted , recommended biosy as an outpatient - consider further staging workup with CT chest/abdomen with contrast tomorrow Hypernatremia - continue PPN and D5W. Sodium has improved to 148, will repeat BMP this afternoon Multiple dental caries - Dr. Serna has evaluated the patient, may need dental treatment at some point, but nothing urgent and recommended antibiotics Pubic rami fractures - nonoperative management per ortho. Patient would need follow up in clinic in 4-6 weeks with new Xrays History of CAD - continue plavix Dispo: continue PPN and IV fluids until hypernatremia resolves to see if improves mental status s
[2020-02-11 15:25] LABS: Anion Gap 12 mmol/L (10-20); BUN (Urea Nitrogen) 33 mg/dL (8.4-25.7); Calc. Creatinine Clearance 60 mL/min (70-130); Calcium 7.8 mg/dL (7.8-10.44); Carbon Dioxide 26 mmol/L (23-31); Chloride 114 mmol/L (98-107); Estimated GFR-MDRD Greater than 90; Glucose 110 mg/dL (83-110); Potassium 3.7 mmol/L (3.5-5.1); Sodium 148 mmol/L (136-145)
[2020-02-11 20:02] LABS: Vancomycin, Trough 10.3 ug/mL
[2020-02-11] MEDS: Clopidogrel Bisulfate 75 MG TAB PO SCH (21:25)
[2020-02-11] MEDS: Rosuvastatin 10 MG TAB PO SCH (21:25)
[2020-02-12] MEDS: Ampicillin/Sulbactam 3 GM in Sodium Chloride 0.9% 100 ML IVPB SCH ×4 (00:39→17:42)
[2020-02-12] MEDS: D5W-AA 4.25% with LYTES 1,000 ML IV SCH ×2 (01:11→15:00)
[2020-02-12] MEDS: Dextrose 5% in Water 1,000 ML IV SCH ×3 (05:09→17:50)
[2020-02-12] MEDS: Valproate Sodium 250 MG in Sodium Chloride 0.9% 100 ML IVPB SCH ×3 (06:29→22:49)
[2020-02-12] MEDS: Multivitamin W/ Minerals 1 TAB PO SCH (07:47)
[2020-02-12] MEDS: Vancomycin HCl 750 MG in Sodium Chloride 0.9% 250 ML 250 ML IVPB SCH ×2 (08:49→20:00)
--- NOTE | 2020-02-12 15:31 | PDOC.HOSPP ---
- Subjective Encounter Date: 02/12/20 Encounter Time: 15:20 Subjective: f/u for acute met encephalopathy/sialoadenitis/hypernatremia receiving IVF's/PPN/Unasyn/Vancomycin. Considering potential Hospice if no improvement in mental status. - Objective Vital Signs & Weight: Vital Signs (12 hours) Temp Pulse Resp BP Pulse Ox 02/12/20 07:55 98.6 F 60 24 H 133/66 100 Weight Admit Weight 131 lb 9.6 oz Weight 131 lb 9.6 oz I&O: 02/11/20 02/12/20 02/13/20 06:59 06:59 06:59 Intake Total 1000 1800 Balance 1000 1800 Result Diagrams: 02/11/20 07:38 02/11/20 14:22 Additional Labs: Microbiology 02/10/20 17:12 Urine clean catch Urine Culture - Final NO GROWTH AT 48 HOURS 02/09/20 18:59 Venous blood - Right Arm Blood Culture - Preliminary NO GROWTH AT 48 HOURS 02/09/20 18:59 Venous blood - Left Hand Blood Culture - Preliminary NO GROWTH AT 48 HOURS Laboratory Tests 01/26/20 01/26/20 01/26/20 13:25 13:25 13:25 WBC Hgb 14.4 Sodium Ammonia Troponin I 0.038 H B-Natriuretic Peptide 76.5 Vitamin B12 TSH 3rd Generation Prolactin Vancomycin Trough Urine Opiates Screen Valproic Acid U Benzodiazepines Scrn SARS-CoV-2 (PCR) 01/26/20 01/26/20 01/26/20 13:25 13:25 13:25 WBC Hgb Sodium Ammonia 26 Troponin I B-Natriuretic Peptide Vitamin B12 TSH 3rd Generation 2.4095 Prolactin 8.95 Vancomycin Trough Urine Opiates Screen Valproic Acid U Benzodiazepines Scrn SARS-CoV-2 (PCR) 01/26/20 01/26/20 01/26/20 13:25 17:21 21:13 WBC Hgb Sodium Ammonia Troponin I B-Natriuretic Peptide Vitamin B12 284 TSH 3rd Generation Prolactin Vancomycin Trough Urine Opiates Screen Detected H Valproic Acid U Benzodiazepines Scrn Detected H SARS-CoV-2 (PCR) Not Detected 02/08/20 02/09/20 02/10/20 05:51 09:17 05:41 WBC 13.7 H 13.0 H Hgb Sodium Ammonia Troponin I B-Natriuretic Peptide Vitamin B12 TSH 3rd Generation Prolactin Vancomycin Trough Urine Opiates Screen Valproic Acid 43.7 L U Benzodiazepines Scrn SARS-CoV-2 (PCR) 02/10/20 02/11/20 02/11/20 17:39 06:54 07:38 WBC 11.8 H Hgb Sodium 148 H Ammonia Troponin I B-Natriuretic Peptide Vitamin B12 TSH 3rd Generation Prolactin Vancomycin Trough 21.5 Urine Opiates Screen Valproic Acid U Benzodiazepines Scrn SARS-CoV-2 (PCR) 02/11/20 02/11/20 14:22 19:26 WBC Hgb Sodium 148 H Ammonia Troponin I B-Natriuretic Peptide Vitamin B12 TSH 3rd Generation Prolactin Vancomycin Trough 10.3 Urine Opiates Screen Valproic Acid U Benzodiazepines Scrn SARS-CoV-2 (PCR) Radiology Reviewed by me: Yes Hospitalist ROS - Medication Medications: Active Medications Generic Name Dose Route Start Last Admin Trade Name Freq PRN Reason Stop Dose Admin Acetaminophen 325 mg 02/11/20 11:47 02/11/20 13:08 Acetaminophen 325 Mg Suppository ID 325 mg Q4H PRN Administration Headache/Fever or Pain Clopidogrel Bisulfate 75 mg 01/27/20 21:00 02/11/20 21:25 Clopidogrel Bisulfate 75 Mg Tab PO Not Given HS [facility] Valproic Acid 250 mg/ Sodium 102.5 mls @ 102.5 mls/hr 01/31/20 14:00 02/12/20 14:00 Chloride IVPB 102.5 mls Q8HR SANTI Administration Ampicillin Sodium/Sulbactam 100 mls @ 200 mls/hr 02/07/20 12:00 02/12/20 12:52 Sodium 3 gm/ Sodium Chloride IVPB 100 mls Q6HR SANTI Administration Dextrose/Water 1,000 mls @ 125 mls/hr 02/09/20 10:30 02/12/20 12:52 D5w IV Not Given .Q8H SANTI Amino Acids/Electrolytes/Dextrose 1,000 mls @ 100 mls/hr 02/10/20 11:15 02/12/20 15:00 Clinimix E 4.25/5 IV 1,000 mls INF SANTI Administration Vancomycin HCl 750 mg/ Sodium 250 mls @ 250 mls/hr 02/12/20 08:00 02/12/20 08:49 Chloride IVPB 250 mls 0800,2000 SANTI Administration Iron/Minerals/Multivitamins 1 tab 02/07/20 09:00 02/12/20 07:47 Multivitamin W/ Minerals 1 Tab PO Not Given DAILY SANTI Rosuvastatin Calcium 10 mg 01/28/20 21:00 02/11/20 21:25 Rosuvastatin 10 Mg Tab PO Not Given HS SANTI Sodium Chloride 10 ml 01/28/20 21:00 02/12/20 07:47 Flush - Normal Saline 10 Ml Syringe IVF Not Given Q12HR SANTI Sodium Chloride 10 ml 01/28/20 10:15 02/01/20 06:24 Flush - Normal Saline 10 Ml Syringe IVF 10 ml PRN PRN Administration Saline Flush Ziprasidone 10 mg 01/28/20 16:08 02/01/20 11:11 Ziprasidone 20 Mg Vial IM 10 mg Q2H PRN Administration Agitation - Exam General Appearance: ill appearing General - other findings: somnolent, non-verbal Eye: PERRL, anicteric sclera ENT: normocephalic atraumatic, dry oral mucosa Neck: supple, symmetric, no JVD, no thyromegaly Heart: RRR, no gallops, no rubs, normal peripheral pulses Heart - other findings: S1, S2 Respiratory: CTAB, no wheezes, no rales, no ronchi, normal chest expansion Gastrointestinal: soft, non-tender, non-distended, normal bowel sounds, no palpable masses, no hepatomegaly Extremities: no cyanosis, no clubbing, no edema Skin: normal turgor, no lesions Neurological: speech deficit Musculoskeletal: generalized weakness, diffuse muscle atrophy Psychiatric: flat affect, somnolent, lethargic Hosp A/P (1) Sialadenitis Code(s): K11.20 - SIALOADENITIS, UNSPECIFIED Status: Acute Plan: Continue hydration, IV Unasyn/Vancomycin, outpt follow up for potential biopsy with ENT (2) Acute metabolic encephalopathy Code(s): G93.41 - METABOLIC ENCEPHALOPATHY Status: Acute Plan: Persistent, multifactorial and component of advanced dementia (3) Hypernatremia Code(s): E87.0 - HYPEROSMOLALITY AND HYPERNATREMIA Status: Acute Plan: Continue D5W, serial Na+ monitoring (4) Seizures Code(s): R56.9 - UNSPECIFIED CONVULSIONS Status: Acute Plan: Continue Depakote IV (5) Pelvic fracture Code(s): S32.9XXA - FRACTURE OF UNSP PARTS OF LUMBOSACRAL SPINE AND PELVIS, INIT Status: Acute Qualifiers: Encounter type: subsequent encounter Pelvic bone location: pubis Fracture type: closed Laterality: right Plan: Conservative mgmt (6) Dementia Code(s): F03.90 - UNSPECIFIED DEMENTIA WITHOUT BEHAVIORAL DISTURBANCE Status: Chronic Qualifiers: Dementia type: Alzheimer's disease Plan: Progressive and appears to be end-stage process, SNF/NH vs Hospice options - Plan continue antibiotics, PT/OT, hospital social worker, speech therapy Consults: Palliative Care Stable currently Continue Depakote OOB with PT Considering hospice D5NS @ 125ml/h Nutritional support with PPN AM lab: BMP, Vanc trough
[2020-02-12] MEDS: Clopidogrel Bisulfate 75 MG TAB PO SCH (19:44)
[2020-02-12] MEDS: Rosuvastatin 10 MG TAB PO SCH (19:44)
[2020-02-13] MEDS: Ampicillin/Sulbactam 3 GM in Sodium Chloride 0.9% 100 ML IVPB SCH ×4 (00:52→17:17)
[2020-02-13] MEDS: Dextrose 5% in Water 1,000 ML IV SCH ×3 (00:52→15:42)
[2020-02-13] MEDS: D5W-AA 4.25% with LYTES 1,000 ML IV SCH ×2 (01:56→14:23)
[2020-02-13] MEDS: Valproate Sodium 250 MG in Sodium Chloride 0.9% 100 ML IVPB SCH ×3 (06:15→22:49)
[2020-02-13 06:16] LABS: Anion Gap 11 mmol/L (10-20); BUN (Urea Nitrogen) 33 mg/dL (8.4-25.7); Calc. Creatinine Clearance 63 mL/min (70-130); Calcium 7.3 mg/dL (7.8-10.44); Carbon Dioxide 23 mmol/L (23-31); Chloride 114 mmol/L (98-107); Estimated GFR-MDRD Greater than 90; Glucose 122 mg/dL (83-110); Potassium 3.4 mmol/L (3.5-5.1); Sodium 145 mmol/L (136-145)
[2020-02-13] MEDS: Multivitamin W/ Minerals 1 TAB PO SCH (07:15)
[2020-02-13] MEDS: Vancomycin HCl 750 MG in Sodium Chloride 0.9% 250 ML 250 ML IVPB SCH ×2 (08:21→20:16)
--- NOTE | 2020-02-13 10:49 | PDOC.HOSPP ---
- Subjective Encounter Date: 02/13/20 Encounter Time: 10:40 Subjective: f/u for general deconditioning/metabolic encephalopathy/sialadenitis receiving Vanc/Unasyn/IVF's/PPN. Considering hospice options. No changes overnight. - Objective Vital Signs & Weight: Vital Signs (12 hours) Temp Pulse Resp BP Pulse Ox 02/13/20 07:43 98.1 F 63 20 152/71 H 100 02/13/20 06:30 98.4 F Weight Admit Weight 131 lb 9.6 oz Weight 131 lb 9.6 oz I&O: 02/12/20 02/13/20 02/14/20 06:59 06:59 06:59 Intake Total 1800 2400 Balance 1800 2400 Result Diagrams: 02/11/20 07:38 02/13/20 05:56 Additional Labs: Microbiology 02/10/20 17:12 Urine clean catch Urine Culture - Final NO GROWTH AT 48 HOURS 02/09/20 18:59 Venous blood - Right Arm Blood Culture - Preliminary NO GROWTH AT 48 HOURS 02/09/20 18:59 Venous blood - Left Hand Blood Culture - Preliminary NO GROWTH AT 48 HOURS Laboratory Tests 01/26/20 01/26/20 01/26/20 13:25 13:25 13:25 WBC Hgb 14.4 Sodium Ammonia Troponin I 0.038 H B-Natriuretic Peptide 76.5 Vitamin B12 TSH 3rd Generation Prolactin Vancomycin Trough Urine Opiates Screen Valproic Acid U Benzodiazepines Scrn SARS-CoV-2 (PCR) 01/26/20 01/26/20 01/26/20 13:25 13:25 13:25 WBC Hgb Sodium Ammonia 26 Troponin I B-Natriuretic Peptide Vitamin B12 TSH 3rd Generation 2.4095 Prolactin 8.95 Vancomycin Trough Urine Opiates Screen Valproic Acid U Benzodiazepines Scrn SARS-CoV-2 (PCR) 01/26/20 01/26/20 01/26/20 13:25 17:21 21:13 WBC Hgb Sodium Ammonia Troponin I B-Natriuretic Peptide Vitamin B12 284 TSH 3rd Generation Prolactin Vancomycin Trough Urine Opiates Screen Detected H Valproic Acid U Benzodiazepines Scrn Detected H SARS-CoV-2 (PCR) Not Detected 02/08/20 02/09/20 02/10/20 05:51 09:17 05:41 WBC 13.7 H 13.0 H Hgb Sodium Ammonia Troponin I B-Natriuretic Peptide Vitamin B12 TSH 3rd Generation Prolactin Vancomycin Trough Urine Opiates Screen Valproic Acid 43.7 L U Benzodiazepines Scrn SARS-CoV-2 (PCR) 02/10/20 02/11/20 02/11/20 17:39 06:54 07:38 WBC 11.8 H Hgb Sodium 148 H Ammonia Troponin I B-Natriuretic Peptide Vitamin B12 TSH 3rd Generation Prolactin Vancomycin Trough 21.5 Urine Opiates Screen Valproic Acid U Benzodiazepines Scrn SARS-CoV-2 (PCR) 02/11/20 02/11/20 14:22 19:26 WBC Hgb Sodium 148 H Ammonia Troponin I B-Natriuretic Peptide Vitamin B12 TSH 3rd Generation Prolactin Vancomycin Trough 10.3 Urine Opiates Screen Valproic Acid U Benzodiazepines Scrn SARS-CoV-2 (PCR) Hospitalist ROS - Medication Medications: Active Medications Generic Name Dose Route Start Last Admin Trade Name Freq PRN Reason Stop Dose Admin Acetaminophen 325 mg 02/11/20 11:47 02/11/20 13:08 Acetaminophen 325 Mg Suppository [place] 325 mg Q4H PRN Administration Headache/Fever or Pain Clopidogrel Bisulfate 75 mg 01/27/20 21:00 02/12/20 19:44 Clopidogrel Bisulfate 75 Mg Tab PO Not Given HS [facility] Valproic Acid 250 mg/ Sodium 102.5 mls @ 102.5 mls/hr 01/31/20 14:00 02/13/20 06:15 Chloride IVPB 102.5 mls Q8HR SANTI Administration Ampicillin Sodium/Sulbactam 100 mls @ 200 mls/hr 02/07/20 12:00 02/13/20 05:28 Sodium 3 gm/ Sodium Chloride IVPB 100 mls Q6HR SANTI Administration Dextrose/Water 1,000 mls @ 125 mls/hr 02/09/20 10:30 02/13/20 08:25 D5w IV Not Given .Q8H SANTI Amino Acids/Electrolytes/Dextrose 1,000 mls @ 100 mls/hr 02/10/20 11:15 02/13/20 01:56 Clinimix E 4.25/5 IV 1,000 mls INF SANTI Administration Vancomycin HCl 750 mg/ Sodium 250 mls @ 250 mls/hr 02/12/20 08:00 02/13/20 08:21 Chloride IVPB 250 mls 08,1999 SANTI Administration Iron/Minerals/Multivitamins 1 tab 02/07/20 09:00 11/15/20 07:15 Multivitamin W/ Minerals 1 Tab PO Not Given DAILY SANTI Rosuvastatin Calcium 10 mg 01/28/20 21:00 02/12/20 19:44 Rosuvastatin 10 Mg Tab PO Not Given HS SANTI Sodium Chloride 10 ml 01/28/20 21:00 02/13/20 07:15 Flush - Normal Saline 10 Ml Syringe IVF Not Given Q12HR SANTI Sodium Chloride 10 ml 01/28/20 10:15 02/01/20 06:24 Flush - Normal Saline 10 Ml Syringe IVF 10 ml PRN PRN Administration Saline Flush Ziprasidone 10 mg 01/28/20 16:08 02/01/20 11:11 Ziprasidone 20 Mg Vial IM 10 mg Q2H PRN Administration Agitation - Exam General Appearance: ill appearing General - other findings: non-verbal, moans occasionally, grimaces Eye: PERRL, anicteric sclera ENT: normocephalic atraumatic, no oropharyngeal lesions Neck: supple, symmetric, no JVD, no thyromegaly Heart: RRR, no gallops, no rubs, normal peripheral pulses Heart - other findings: S1, S2 Respiratory: CTAB, no wheezes, no rales, normal chest expansion, rhonchi Gastrointestinal: soft, non-tender, non-distended, normal bowel sounds, no palpable masses Extremities: no cyanosis, no clubbing, no edema Skin: normal turgor Neurological - other findings: non-verbal, grimaces to tactile stimulus or movement Musculoskeletal: generalized weakness, diffuse muscle atrophy Psychiatric: flat affect, somnolent, lethargic Hosp A/P (1) Sialadenitis Code(s): K11.20 - SIALOADENITIS, UNSPECIFIED Status: Acute Plan: Continue IV hydration, oral care, continue Unasyn/Vancomycin (2) Acute metabolic encephalopathy Code(s): G93.41 - METABOLIC ENCEPHALOPATHY Status: Acute Plan: Persistent and multifactorial, advanced dementia component (3) Hypernatremia Code(s): E87.0 - HYPEROSMOLALITY AND HYPERNATREMIA Status: Acute Plan: Improved, continue D5W, serial Na+ monitoring (4) Seizures Code(s): R56.9 - UNSPECIFIED CONVULSIONS Status: Acute (5) Pelvic fracture Code(s): S32.9XXA - FRACTURE OF UNSP PARTS OF LUMBOSACRAL SPINE AND PELVIS, INIT Status: Acute Qualifiers: Encounter type: subsequent encounter Pelvic bone location: pubis Fracture type: closed Laterality: right Plan: Conservative and non-operative mgmt (6) Dementia Code(s): F03.90 - UNSPECIFIED DEMENTIA WITHOUT BEHAVIORAL DISTURBANCE Status: Chronic Qualifiers: Dementia type: Alzheimer's disease Plan: Appears to be advanced and end-stage - Plan continue antibiotics, PT/OT, manager social work, speech therapy, DVT proph w/SCDs Consults: Palliative Care Continue supportive mgmt Continue Depakote OOB with PT, not working with PT currently Considering hospice D5NS @ 125ml/h Nutritional support with PPN AM lab: BMP, Vanc trough
[2020-02-13] MEDS: Clopidogrel Bisulfate 75 MG TAB PO SCH (19:04)
[2020-02-13] MEDS: Rosuvastatin 10 MG TAB PO SCH (19:05)
[2020-02-14] MEDS: D5W-AA 4.25% with LYTES 1,000 ML IV SCH ×2 (00:38→23:46)
[2020-02-14] MEDS: Ampicillin/Sulbactam 3 GM in Sodium Chloride 0.9% 100 ML IVPB SCH ×5 (00:47→23:45)
[2020-02-14] MEDS: Dextrose 5% in Water 1,000 ML IV SCH ×5 (03:37→23:45)
[2020-02-14] MEDS: Valproate Sodium 250 MG in Sodium Chloride 0.9% 100 ML IVPB SCH ×3 (08:43→22:47)
[2020-02-14] MEDS: Multivitamin W/ Minerals 1 TAB PO SCH (09:03)
[2020-02-14] MEDS: Vancomycin HCl 750 MG in Sodium Chloride 0.9% 250 ML 250 ML IVPB SCH ×2 (09:55→20:10)
--- NOTE | 2020-02-14 12:41 | PDOC.HOSPP ---
- Subjective Encounter Date: 02/14/20 Encounter Time: 12:40 Subjective: f/u for met encephalopathy/sialadenitis/dehydration/hypernatremia on current IVF's/PPN. No new events noted overnight. - Objective Vital Signs & Weight: Vital Signs (12 hours) Temp Pulse Resp BP Pulse Ox 02/14/20 08:07 97.6 F 66 20 176/70 H 100 Weight Admit Weight 131 lb 9.6 oz Weight 131 lb 9.6 oz I&O: 02/13/20 02/14/20 02/15/20 06:59 06:59 06:59 Intake Total 2400 Balance 2400 Result Diagrams: 02/11/20 07:38 02/13/20 05:56 Additional Labs: Microbiology 02/10/20 17:12 Urine clean catch Urine Culture - Final NO GROWTH AT 48 HOURS 02/09/20 18:59 Venous blood - Right Arm Blood Culture - Preliminary NO GROWTH AT 48 HOURS 02/09/20 18:59 Venous blood - Left Hand Blood Culture - Preliminary NO GROWTH AT 48 HOURS Laboratory Tests 01/26/20 01/26/20 01/26/20 13:25 13:25 13:25 WBC Hgb 14.4 Sodium Ammonia Troponin I 0.038 H B-Natriuretic Peptide 76.5 Vitamin B12 TSH 3rd Generation Prolactin Vancomycin Trough Urine Opiates Screen Valproic Acid U Benzodiazepines Scrn SARS-CoV-2 (PCR) 01/26/20 01/26/20 01/26/20 13:25 13:25 13:25 WBC Hgb Sodium Ammonia 26 Troponin I B-Natriuretic Peptide Vitamin B12 TSH 3rd Generation 2.4095 Prolactin 8.95 Vancomycin Trough Urine Opiates Screen Valproic Acid U Benzodiazepines Scrn SARS-CoV-2 (PCR) 01/26/20 01/26/20 01/26/20 13:25 17:21 21:13 WBC Hgb Sodium Ammonia Troponin I B-Natriuretic Peptide Vitamin B12 284 TSH 3rd Generation Prolactin Vancomycin Trough Urine Opiates Screen Detected H Valproic Acid U Benzodiazepines Scrn Detected H SARS-CoV-2 (PCR) Not Detected 02/08/20 02/09/20 02/10/20 05:51 09:17 05:41 WBC 13.7 H 13.0 H Hgb Sodium Ammonia Troponin I B-Natriuretic Peptide Vitamin B12 TSH 3rd Generation Prolactin Vancomycin Trough Urine Opiates Screen Valproic Acid 43.7 L U Benzodiazepines Scrn SARS-CoV-2 (PCR) 02/10/20 02/11/20 02/11/20 17:39 06:54 07:38 WBC 11.8 H Hgb Sodium 148 H Ammonia Troponin I B-Natriuretic Peptide Vitamin B12 TSH 3rd Generation Prolactin Vancomycin Trough 21.5 Urine Opiates Screen Valproic Acid U Benzodiazepines Scrn SARS-CoV-2 (PCR) 02/11/20 02/11/20 14:22 19:26 WBC Hgb Sodium 148 H Ammonia Troponin I B-Natriuretic Peptide Vitamin B12 TSH 3rd Generation Prolactin Vancomycin Trough 10.3 Urine Opiates Screen Valproic Acid U Benzodiazepines Scrn SARS-CoV-2 (PCR) Hospitalist ROS - Medication Medications: Active Medications Generic Name Dose Route Start Last Admin Trade Name Freq PRN Reason Stop Dose Admin Acetaminophen 325 mg 02/11/20 11:47 02/11/20 13:08 Acetaminophen 325 Mg Suppository MO 325 mg Q4H PRN Administration Headache/Fever or Pain Clopidogrel Bisulfate 75 mg 01/27/20 21:00 02/13/20 19:04 Clopidogrel Bisulfate 75 Mg Tab PO Not Given HS SANTI Valproic Acid 250 mg/ Sodium 102.5 mls @ 102.5 mls/hr 01/31/20 14:00 02/14/20 08:43 Chloride IVPB 102.5 mls Q8HR SANTI Administration Ampicillin Sodium/Sulbactam 100 mls @ 200 mls/hr 02/07/20 12:00 02/14/20 06:06 Sodium 3 gm/ Sodium Chloride IVPB 100 mls Q6HR SANTI Administration Dextrose/Water 1,000 mls @ 125 mls/hr 02/09/20 10:30 02/14/20 05:37 D5w IV 1,000 mls .Q8H SANTI Administration Amino Acids/Electrolytes/Dextrose 1,000 mls @ 100 mls/hr 02/10/20 11:15 02/14/20 00:38 Clinimix E 4.25/5 IV 1,000 mls INF SANTI Administration Vancomycin HCl 750 mg/ Sodium 250 mls @ 250 mls/hr 02/12/20 08:00 02/14/20 09:55 Chloride IVPB 250 mls 0800,2000 SANTI Administration Iron/Minerals/Multivitamins 1 tab 02/07/20 09:00 02/14/20 09:03 Multivitamin W/ Minerals 1 Tab PO Not Given DAILY SANTI Rosuvastatin Calcium 10 mg 01/28/20 21:00 02/13/20 19:05 Rosuvastatin 10 Mg Tab PO Not Given HS SANTI Sodium Chloride 10 ml 01/28/20 21:00 02/14/20 09:03 Flush - Normal Saline 10 Ml Syringe IVF Not Given Q12HR SANTI Sodium Chloride 10 ml 01/28/20 10:15 02/01/20 06:24 Flush - Normal Saline 10 Ml Syringe IVF 10 ml PRN PRN Administration Saline Flush Ziprasidone 10 mg 01/28/20 16:08 02/01/20 11:11 Ziprasidone 20 Mg Vial IM 10 mg Q2H PRN Administration Agitation - Exam General Appearance: ill appearing General - other findings: somnolent, occasional grimace, non-verbal Eye: PERRL, anicteric sclera ENT: normocephalic atraumatic, dry oral mucosa Neck: supple, symmetric, no JVD, no thyromegaly, no lymphadenopathy Heart: RRR, no gallops, no rubs, normal peripheral pulses Heart - other findings: S1, S2 Respiratory: CTAB Gastrointestinal: soft, non-tender, non-distended, normal bowel sounds, no palpable masses Extremities: no cyanosis, no clubbing, no edema Skin: normal turgor Neurological - other findings: non-verbal, grimaces occasionally, moves all extremities Musculoskeletal: generalized weakness, diffuse muscle atrophy Psychiatric: somnolent, lethargic Hosp A/P (1) Sialadenitis Code(s): K11.20 - SIALOADENITIS, UNSPECIFIED Status: Acute Plan: Continue Unasyn/Vancomycin/IVF's, oral care (2) Acute metabolic encephalopathy Code(s): G93.41 - METABOLIC ENCEPHALOPATHY Status: Acute Plan: Persistent and multifactorial, supportive mgmt with family at bedside (3) Hypernatremia Code(s): E87.0 - HYPEROSMOLALITY AND HYPERNATREMIA Status: Acute Plan: Improved with D5 IVF's (4) Seizures Code(s): R56.9 - UNSPECIFIED CONVULSIONS Status: Acute Plan: Continue IV Depakote (5) Pelvic fracture Code(s): S32.9XXA - FRACTURE OF UNSP PARTS OF LUMBOSACRAL SPINE AND PELVIS, INIT Status: Acute Qualifiers: Encounter type: subsequent encounter Pelvic bone location: pubis Fracture type: closed Laterality: right (6) Dementia Code(s): F03.90 - UNSPECIFIED DEMENTIA WITHOUT BEHAVIORAL DISTURBANCE Status: Chronic Qualifiers: Dementia type: Alzheimer's disease Plan: Advanced, appears end-stage - Plan continue antibiotics, PT/OT, social group worker, speech therapy Continue supportive mgmt Continue Depakote OOB with PT, not working with PT currently states approval for SNF at [place] Decrease D5NS @ 75ml/h Nutritional support with PPN Family undecided about hospice option AM lab: BMP, CBC
[2020-02-14 13:08] LABS: Anion Gap 11 mmol/L (10-20); BUN (Urea Nitrogen) 37 mg/dL (8.4-25.7); Calc. Creatinine Clearance 62 mL/min (70-130); Calcium 7.1 mg/dL (7.8-10.44); Carbon Dioxide 23 mmol/L (23-31); Chloride 113 mmol/L (98-107); Estimated GFR-MDRD Greater than 90; Glucose 110 mg/dL (83-110); Potassium 3.6 mmol/L (3.5-5.1); Sodium 143 mmol/L (136-145)
[2020-02-14] MEDS: Clopidogrel Bisulfate 75 MG TAB PO SCH (20:10)
[2020-02-14] MEDS: Rosuvastatin 10 MG TAB PO SCH (20:10)
[2020-02-15] MEDS: Ampicillin/Sulbactam 3 GM in Sodium Chloride 0.9% 100 ML IVPB SCH ×3 (05:00→18:02)
[2020-02-15] MEDS: Valproate Sodium 250 MG in Sodium Chloride 0.9% 100 ML IVPB SCH ×3 (05:58→22:06)
[2020-02-15] MEDS: Multivitamin W/ Minerals 1 TAB PO SCH (07:22)
[2020-02-15 07:38] LABS: #Eosinphils 0.1 thou/uL (0.0-0.7); #Lymphocytes 1.3 thou/uL (1.20-3.40); #Neutrophils 6.6 thou/uL (1.40-6.50); %Basophils 0.4 % (0.0-1.0); %Lymphocytes 14.6 % (21.0-51.0); %Monocytes 10.7 % (0.0-10.0); %Neutrophils 73.3 % (42.0-75.0); Hemoglobin 11.7 g/dL (14.0-18.0); Mean Corpuscular HGB CONC 32.8 g/dL (32.0-36.0); Mean Corpuscular Hemoglobin 30.6 pg (27.0-31.0); Mean Corpuscular Volume 93.3 fL (78.0-98.0); Mean Platelet Volume 8.4 fL (7.4-10.4); Platelet Count 204 thou/uL (130-400); RBC Distribution Width 10.9 % (11.5-14.5); Red Blood Cell (RBC) Count 3.83 mill/uL (4.70-6.10)
[2020-02-15 08:00] LABS: Vancomycin, Trough 18.9 ug/mL
[2020-02-15] MEDS: Vancomycin HCl 750 MG in Sodium Chloride 0.9% 250 ML 250 ML IVPB SCH ×2 (09:40→20:23)
--- NOTE | 2020-02-15 10:13 | PDOC.HOSPP ---
- Subjective Encounter Date: 02/15/20 Encounter Time: 10:00 Subjective: f/u for encephalopathy/sialadenitis/dehydration/anorexia receiving PPN/IVF's/Unasyn/Vancomycin. Remains somnolent and non-verbal. Family contemplating hospice option but undecided. - Objective Vital Signs & Weight: Vital Signs (12 hours) Temp Pulse Resp BP Pulse Ox 02/15/20 07:46 98.4 F 53 L 20 145/81 H 100 Weight Admit Weight 131 lb 9.6 oz Weight 131 lb 9.6 oz I&O: 02/14/20 02/15/20 02/16/20 06:59 06:59 06:59 Intake Total 2400 1550 Balance 2400 1550 Result Diagrams: 02/15/20 07:12 02/14/20 12:27 Additional Labs: Microbiology 02/10/20 17:12 Urine clean catch Urine Culture - Final NO GROWTH AT 48 HOURS 02/09/20 18:59 Venous blood - Right Arm Blood Culture - Preliminary NO GROWTH AT 48 HOURS 02/09/20 18:59 Venous blood - Left Hand Blood Culture - Preliminary NO GROWTH AT 48 HOURS Laboratory Tests 01/26/20 01/26/20 01/26/20 13:25 13:25 13:25 WBC Hgb 14.4 Sodium Ammonia Troponin I 0.038 H B-Natriuretic Peptide 76.5 Vitamin B12 TSH 3rd Generation Prolactin Vancomycin Trough Urine Opiates Screen Valproic Acid U Benzodiazepines Scrn SARS-CoV-2 (PCR) 01/26/20 01/26/20 01/26/20 13:25 13:25 13:25 WBC Hgb Sodium Ammonia 26 Troponin I B-Natriuretic Peptide Vitamin B12 TSH 3rd Generation 2.4095 Prolactin 8.95 Vancomycin Trough Urine Opiates Screen Valproic Acid U Benzodiazepines Scrn SARS-CoV-2 (PCR) 01/26/20 01/26/20 01/26/20 13:25 17:21 21:13 WBC Hgb Sodium Ammonia Troponin I B-Natriuretic Peptide Vitamin B12 284 TSH 3rd Generation Prolactin Vancomycin Trough Urine Opiates Screen Detected H Valproic Acid U Benzodiazepines Scrn Detected H SARS-CoV-2 (PCR) Not Detected 02/08/20 02/09/20 02/10/20 05:51 09:17 05:41 WBC 13.7 H 13.0 H Hgb Sodium Ammonia Troponin I B-Natriuretic Peptide Vitamin B12 TSH 3rd Generation Prolactin Vancomycin Trough Urine Opiates Screen Valproic Acid 43.7 L U Benzodiazepines Scrn SARS-CoV-2 (PCR) 02/10/20 02/11/20 02/11/20 17:39 06:54 07:38 WBC 11.8 H Hgb Sodium 148 H Ammonia Troponin I B-Natriuretic Peptide Vitamin B12 TSH 3rd Generation Prolactin Vancomycin Trough 21.5 Urine Opiates Screen Valproic Acid U Benzodiazepines Scrn SARS-CoV-2 (PCR) 02/11/20 02/11/20 14:22 19:26 WBC Hgb Sodium 148 H Ammonia Troponin I B-Natriuretic Peptide Vitamin B12 TSH 3rd Generation Prolactin Vancomycin Trough 10.3 Urine Opiates Screen Valproic Acid U Benzodiazepines Scrn SARS-CoV-2 (PCR) Hospitalist ROS - Medication Medications: Active Medications Generic Name Dose Route Start Last Admin Trade Name Freq PRN Reason Stop Dose Admin Acetaminophen 325 mg 02/11/20 11:47 02/11/20 13:08 Acetaminophen 325 Mg Suppository NM 325 mg Q4H PRN Administration Headache/Fever or Pain Clopidogrel Bisulfate 75 mg 01/27/20 21:00 02/14/20 20:10 Clopidogrel Bisulfate 75 Mg Tab PO Not Given HS [facility]I Valproic Acid 250 mg/ Sodium 102.5 mls @ 102.5 mls/hr 01/31/20 14:00 02/15/20 05:58 Chloride IVPB 102.5 mls Q8HR SANTI Administration Ampicillin Sodium/Sulbactam 100 mls @ 200 mls/hr 02/07/20 12:00 02/15/20 05:00 Sodium 3 gm/ Sodium Chloride IVPB 100 mls Q6HR SANTI Administration Amino Acids/Electrolytes/Dextrose 1,000 mls @ 100 mls/hr 02/10/20 11:15 02/14/20 23:46 Clinimix E 4.25/5 IV 1,000 mls INF SANTI Administration Vancomycin HCl 750 mg/ Sodium 250 mls @ 250 mls/hr 02/12/20 08:00 02/15/20 09:40 Chloride IVPB 250 mls 0800,2000 SANTI Administration Dextrose/Water 1,000 mls @ 75 mls/hr 02/14/20 12:46 02/14/20 23:45 D5w IV Not Given .[id number] SANTI Iron/Minerals/Multivitamins 1 tab 02/07/20 09:00 02/15/20 07:22 Multivitamin W/ Minerals 1 Tab PO Not Given DAILY SANTI Rosuvastatin Calcium 10 mg 01/28/20 21:00 02/14/20 20:10 Rosuvastatin 10 Mg Tab PO Not Given HS SANTI Sodium Chloride 10 ml 01/28/20 21:00 02/15/20 09:40 Flush - Normal Saline 10 Ml Syringe IVF Not Given Q12HR SANTI Sodium Chloride 10 ml 01/28/20 10:15 02/01/20 06:24 Flush - Normal Saline 10 Ml Syringe IVF 10 ml PRN PRN Administration Saline Flush Ziprasidone 10 mg 01/28/20 16:08 02/01/20 11:11 Ziprasidone 20 Mg Vial IM 10 mg Q2H PRN Administration Agitation - Exam General Appearance: ill appearing General - other findings: sedate, grimaces, non-verbal Eye: PERRL, anicteric sclera ENT: normocephalic atraumatic, no oropharyngeal lesions, dry oral mucosa Neck: supple, symmetric, no JVD, no thyromegaly, no lymphadenopathy Heart: RRR, no gallops, no rubs, normal peripheral pulses Heart - other findings: S1, S2 Respiratory: CTAB, no wheezes, no rales, no ronchi, normal chest expansion Gastrointestinal: soft, non-tender, non-distended, normal bowel sounds, no palpable masses Extremities: no cyanosis, no clubbing, no edema Skin: normal turgor Neurological: no new deficit Neurological - other findings: sedate, moves extremities randomly, closes jaw, non-verbal Musculoskeletal: generalized weakness Psychiatric: not oriented, somnolent, lethargic Hosp A/P (1) Sialadenitis Code(s): K11.20 - SIALOADENITIS, UNSPECIFIED Status: Acute Plan: Continue Unasyn/Vancomycin, oral care, hydration (2) Acute metabolic encephalopathy Code(s): G93.41 - METABOLIC ENCEPHALOPATHY Status: Acute Plan: Persistent, multifactorial, likely large component of dementia (3) Hypernatremia Code(s): E87.0 - HYPEROSMOLALITY AND HYPERNATREMIA Status: Acute Plan: Resolved (4) Seizures Code(s): R56.9 - UNSPECIFIED CONVULSIONS Status: Acute Plan: Continue Depakote IV as unable to take po option (5) Pelvic fracture Code(s): S32.9XXA - FRACTURE OF UNSP PARTS OF LUMBOSACRAL SPINE AND PELVIS, INIT Status: Acute Qualifiers: Encounter type: subsequent encounter Pelvic bone location: pubis Fracture type: closed Laterality: right Plan: Non-operative mgmt (6) Dementia Code(s): F03.90 - UNSPECIFIED DEMENTIA WITHOUT BEHAVIORAL DISTURBANCE Status: Chronic Qualifiers: Dementia type: Alzheimer's disease Plan: Likely advanced process - Plan continue antibiotics, PT/OT, social services analyst, speech therapy, DVT proph w/SCDs Consults: Palliative Care Continue supportive mgmt Continue Depakote OOB with PT, not working with PT currently states approval for SNF at [place] Decrease D5NS @ 75ml/h Nutritional support with PPN Family undecided about hospice option May consider swing bed option
[2020-02-15] MEDS: D5W-AA 4.25% with LYTES 1,000 ML IV SCH (10:41)
[2020-02-15] MEDS: Dextrose 5% in Water 1,000 ML IV SCH ×2 (14:52→18:15)
[2020-02-15] MEDS: Clopidogrel Bisulfate 75 MG TAB PO SCH (20:27)
[2020-02-15] MEDS: Rosuvastatin 10 MG TAB PO SCH (20:28)
[2020-02-16] MEDS: Ampicillin/Sulbactam 3 GM in Sodium Chloride 0.9% 100 ML IVPB SCH ×5 (00:09→17:07)
[2020-02-16] MEDS: Valproate Sodium 250 MG in Sodium Chloride 0.9% 100 ML IVPB SCH ×3 (06:37→22:33)
[2020-02-16] MEDS: Dextrose 5% in Water 1,000 ML IV SCH ×3 (07:17→17:07)
[2020-02-16] MEDS: Multivitamin W/ Minerals 1 TAB PO SCH (07:17)
[2020-02-16] MEDS: Vancomycin HCl 750 MG in Sodium Chloride 0.9% 250 ML 250 ML IVPB SCH ×2 (08:19→20:22)
--- NOTE | 2020-02-16 12:21 | PDOC.HOSPP ---
- Subjective Encounter Date: 02/16/20 Encounter Time: 12:15 Subjective: f/u for persistent AMS/deconditioning/seizures receiving Unasyn/Vancomycin for sialadenitis. Continues with PPN but remains essentially unresponsive, non- verbal and non-ambulatory. Family undecided on hospice option. - Objective Vital Signs & Weight: Vital Signs (12 hours) Temp Pulse Resp BP Pulse Ox 02/16/20 08:54 98.4 F 65 20 149/61 H 100 02/16/20 08:20 100 Weight Admit Weight 131 lb 9.6 oz Weight 138 lb 7 oz I&O: 02/15/20 02/16/20 02/17/20 06:59 06:59 06:59 Intake Total 1550 4100 Balance 1550 4100 Result Diagrams: 02/15/20 07:12 02/14/20 12:27 Additional Labs: Microbiology 02/10/20 17:12 Urine clean catch Urine Culture - Final NO GROWTH AT 48 HOURS 02/09/20 18:59 Venous blood - Right Arm Blood Culture - Preliminary NO GROWTH AT 48 HOURS 02/09/20 18:59 Venous blood - Left Hand Blood Culture - Preliminary NO GROWTH AT 48 HOURS Laboratory Tests 01/26/20 01/26/20 01/26/20 13:25 13:25 13:25 WBC Hgb 14.4 Sodium Ammonia Troponin I 0.038 H B-Natriuretic Peptide 76.5 Vitamin B12 TSH 3rd Generation Prolactin Vancomycin Trough Urine Opiates Screen Valproic Acid U Benzodiazepines Scrn SARS-CoV-2 (PCR) 01/26/20 01/26/20 01/26/20 13:25 13:25 13:25 WBC Hgb Sodium Ammonia 26 Troponin I B-Natriuretic Peptide Vitamin B12 TSH 3rd Generation 2.4095 Prolactin 8.95 Vancomycin Trough Urine Opiates Screen Valproic Acid U Benzodiazepines Scrn SARS-CoV-2 (PCR) 01/26/20 01/26/20 01/26/20 13:25 17:21 21:13 WBC Hgb Sodium Ammonia Troponin I B-Natriuretic Peptide Vitamin B12 284 TSH 3rd Generation Prolactin Vancomycin Trough Urine Opiates Screen Detected H Valproic Acid U Benzodiazepines Scrn Detected H SARS-CoV-2 (PCR) Not Detected 02/08/20 02/09/20 02/10/20 05:51 09:17 05:41 WBC 13.7 H 13.0 H Hgb Sodium Ammonia Troponin I B-Natriuretic Peptide Vitamin B12 TSH 3rd Generation Prolactin Vancomycin Trough Urine Opiates Screen Valproic Acid 43.7 L U Benzodiazepines Scrn SARS-CoV-2 (PCR) 02/10/20 02/11/20 02/11/20 17:39 06:54 07:38 WBC 11.8 H Hgb Sodium 148 H Ammonia Troponin I B-Natriuretic Peptide Vitamin B12 TSH 3rd Generation Prolactin Vancomycin Trough 21.5 Urine Opiates Screen Valproic Acid U Benzodiazepines Scrn SARS-CoV-2 (PCR) 02/11/20 02/11/20 14:22 19:26 WBC Hgb Sodium 148 H Ammonia Troponin I B-Natriuretic Peptide Vitamin B12 TSH 3rd Generation Prolactin Vancomycin Trough 10.3 Urine Opiates Screen Valproic Acid U Benzodiazepines Scrn SARS-CoV-2 (PCR) Hospitalist ROS - Medication Medications: Active Medications Generic Name Dose Route Start Last Admin Trade Name Freq PRN Reason Stop Dose Admin Acetaminophen 325 mg 02/11/20 11:47 02/11/20 13:08 Acetaminophen 325 Mg Suppository [place] 325 mg Q4H PRN Administration Headache/Fever or Pain Clopidogrel Bisulfate 75 mg 01/27/20 21:00 02/15/20 20:27 Clopidogrel Bisulfate 75 Mg Tab PO Not Given HS SANTI Valproic Acid 250 mg/ Sodium 102.5 mls @ 102.5 mls/hr 01/31/20 14:00 02/16/20 06:37 Chloride IVPB 102.5 mls Q8HR SANTI Administration Ampicillin Sodium/Sulbactam 100 mls @ 200 mls/hr 02/07/20 12:00 02/16/20 11:08 Sodium 3 gm/ Sodium Chloride IVPB 100 mls Q6HR SANTI Administration Amino Acids/Electrolytes/Dextrose 1,000 mls @ 100 mls/hr 02/10/20 11:15 02/15/20 10:41 Clinimix E 4.25/5 IV 1,000 mls INF SANTI Administration Vancomycin HCl 750 mg/ Sodium 250 mls @ 250 mls/hr 02/12/20 08:00 02/16/20 08:19 Chloride IVPB 250 mls 0800,2000 SANTI Administration Iron/Minerals/Multivitamins 1 tab 02/07/20 09:00 02/16/20 07:17 Multivitamin W/ Minerals 1 Tab PO Not Given DAILY SANTI Rosuvastatin Calcium 10 mg 01/28/20 21:00 02/15/20 20:28 Rosuvastatin 10 Mg Tab PO Not Given HS SANTI Sodium Chloride 10 ml 01/28/20 21:00 02/16/20 08:20 Flush - Normal Saline 10 Ml Syringe IVF Not Given Q12HR SANTI Sodium Chloride 10 ml 01/28/20 10:15 02/01/20 06:24 Flush - Normal Saline 10 Ml Syringe IVF 10 ml PRN PRN Administration Saline Flush Ziprasidone 10 mg 01/28/20 16:08 02/01/20 11:11 Ziprasidone 20 Mg Vial IM 10 mg Q2H PRN Administration Agitation - Exam General Appearance: ill appearing General - other findings: somnolent, non-verbal Eye: PERRL, anicteric sclera ENT: normocephalic atraumatic, no oropharyngeal lesions Neck: supple, symmetric, no JVD, no thyromegaly, no lymphadenopathy Heart: RRR, no gallops, no rubs, normal peripheral pulses Heart - other findings: S1, S2 Respiratory: CTAB, no wheezes, no rales, no ronchi, normal chest expansion Gastrointestinal: soft, non-tender, non-distended, normal bowel sounds, no palpable masses Extremities: no cyanosis, no clubbing, no edema Skin: normal turgor Neurological - other findings: somnolent, moves ext randomly Musculoskeletal: generalized weakness, diffuse muscle atrophy Psychiatric: not oriented, somnolent, lethargic Hosp A/P (1) Sialadenitis Code(s): K11.20 - SIALOADENITIS, UNSPECIFIED Status: Acute (2) Acute metabolic encephalopathy Code(s): G93.41 - METABOLIC ENCEPHALOPATHY Status: Acute (3) Hypernatremia Code(s): E87.0 - HYPEROSMOLALITY AND HYPERNATREMIA Status: Acute (4) Seizures Code(s): R56.9 - UNSPECIFIED CONVULSIONS Status: Acute (5) Pelvic fracture Code(s): S32.9XXA - FRACTURE OF UNSP PARTS OF LUMBOSACRAL SPINE AND PELVIS, INIT Status: Acute Qualifiers: Encounter type: subsequent encounter Pelvic bone location: pubis Fracture type: closed Laterality: right (6) Dementia Code(s): F03.90 - UNSPECIFIED DEMENTIA WITHOUT BEHAVIORAL DISTURBANCE Status: Chronic Qualifiers: Dementia type: Alzheimer's disease - Plan plan discussed w/ family, continue antibiotics, PT/OT, social services coordinator, speech therapy, DVT proph w/SCDs Consults: Palliative Care Continue supportive mgmt Continue Depakote OOB with PT, not working with PT currently states approval for SNF at [place] Decrease D5NS @ 50ml/h Nutritional support with PPN Trial of clear liquids Family undecided about hospice option May consider swing bed vs SNF AM lab: Depakote level
[2020-02-16 14:25] VITALS: BMI 19.8
[2020-02-16] MEDS: Rosuvastatin 10 MG TAB PO SCH (20:23)
[2020-02-16] MEDS: Clopidogrel Bisulfate 75 MG TAB PO SCH (20:23)
[2020-02-17] MEDS: Ampicillin/Sulbactam 3 GM in Sodium Chloride 0.9% 100 ML IVPB SCH ×2 (00:44→05:13)
[2020-02-17] MEDS: D5W-AA 4.25% with LYTES 1,000 ML IV SCH ×2 (00:50→12:02)
[2020-02-17] MEDS: Valproate Sodium 250 MG in Sodium Chloride 0.9% 100 ML IVPB SCH (05:13)
[2020-02-17] MEDS: Dextrose 5% in Water 1,000 ML IV SCH (10:15)
[2020-02-17] MEDS: Vancomycin HCl 750 MG in Sodium Chloride 0.9% 250 ML 250 ML IVPB SCH (10:15)
[2020-02-17] MEDS: Multivitamin W/ Minerals 1 TAB PO SCH (10:21)
--- NOTE | 2020-02-17 11:56 | PDOC.HOSPP ---
- Subjective Encounter Date: 02/17/20 Encounter Time: 11:50 Subjective: f/u for AMS/deconditioning/dysphagia failing trial of clear liquids yesterday. Remains somnolent and not following commands. Sleeping mainly per . - Objective Vital Signs & Weight: Vital Signs (12 hours) Temp Pulse Resp BP Pulse Ox 02/17/20 11:49 97.4 F L 63 18 156/82 H 100 02/17/20 07:42 97.7 F 64 159/76 H 100 Weight Admit Weight 131 lb 9.6 oz Weight 138 lb 7 oz I&O: 02/16/20 02/17/20 02/18/20 06:59 06:59 06:59 Intake Total 4100 1700 Balance 4100 1700 Result Diagrams: 02/15/20 07:12 02/14/20 12:27 Additional Labs: Microbiology 02/10/20 17:12 Urine clean catch Urine Culture - Final NO GROWTH AT 48 HOURS 02/09/20 18:59 Venous blood - Right Arm Blood Culture - Preliminary NO GROWTH AT 48 HOURS 02/09/20 18:59 Venous blood - Left Hand Blood Culture - Preliminary NO GROWTH AT 48 HOURS Laboratory Tests 01/26/20 01/26/20 01/26/20 13:25 13:25 13:25 WBC Hgb 14.4 Sodium Ammonia Troponin I 0.038 H B-Natriuretic Peptide 76.5 Vitamin B12 TSH 3rd Generation Prolactin Vancomycin Trough Urine Opiates Screen Valproic Acid U Benzodiazepines Scrn SARS-CoV-2 (PCR) 01/26/20 01/26/20 01/26/20 13:25 13:25 13:25 WBC Hgb Sodium Ammonia 26 Troponin I B-Natriuretic Peptide Vitamin B12 TSH 3rd Generation 2.4095 Prolactin 8.95 Vancomycin Trough Urine Opiates Screen Valproic Acid U Benzodiazepines Scrn SARS-CoV-2 (PCR) 01/26/20 01/26/20 01/26/20 13:25 17:21 21:13 WBC Hgb Sodium Ammonia Troponin I B-Natriuretic Peptide Vitamin B12 284 TSH 3rd Generation Prolactin Vancomycin Trough Urine Opiates Screen Detected H Valproic Acid U Benzodiazepines Scrn Detected H SARS-CoV-2 (PCR) Not Detected 02/08/20 02/09/20 02/10/20 05:51 09:17 05:41 WBC 13.7 H 13.0 H Hgb Sodium Ammonia Troponin I B-Natriuretic Peptide Vitamin B12 TSH 3rd Generation Prolactin Vancomycin Trough Urine Opiates Screen Valproic Acid 43.7 L U Benzodiazepines Scrn SARS-CoV-2 (PCR) 02/10/20 02/11/20 02/11/20 17:39 06:54 07:38 WBC 11.8 H Hgb Sodium 148 H Ammonia Troponin I B-Natriuretic Peptide Vitamin B12 TSH 3rd Generation Prolactin Vancomycin Trough 21.5 Urine Opiates Screen Valproic Acid U Benzodiazepines Scrn SARS-CoV-2 (PCR) 02/11/20 02/11/20 14:22 19:26 WBC Hgb Sodium 148 H Ammonia Troponin I B-Natriuretic Peptide Vitamin B12 TSH 3rd Generation Prolactin Vancomycin Trough 10.3 Urine Opiates Screen Valproic Acid U Benzodiazepines Scrn SARS-CoV-2 (PCR) Hospitalist ROS - Medication Medications: Active Medications Generic Name Dose Route Start Last Admin Trade Name Freq PRN Reason Stop Dose Admin Acetaminophen 325 mg 02/11/20 11:47 02/11/20 13:08 Acetaminophen 325 Mg Suppository [place] 325 mg Q4H PRN Administration Headache/Fever or Pain Clopidogrel Bisulfate 75 mg 01/27/20 21:00 02/16/20 20:23 Clopidogrel Bisulfate 75 Mg Tab PO Not Given HS SANTI Valproic Acid 250 mg/ Sodium 102.5 mls @ 102.5 mls/hr 01/31/20 14:00 02/17/20 05:13 Chloride IVPB 102.5 mls Q8HR SANTI Administration Ampicillin Sodium/Sulbactam 100 mls @ 200 mls/hr 02/07/20 12:00 02/17/20 05:13 Sodium 3 gm/ Sodium Chloride IVPB 100 mls Q6HR SANTI Administration Amino Acids/Electrolytes/Dextrose 1,000 mls @ 100 mls/hr 02/10/20 11:15 02/17/20 00:50 Clinimix E 4.25/5 IV 1,000 mls INF SANTI Administration Vancomycin HCl 750 mg/ Sodium 250 mls @ 250 mls/hr 02/12/20 08:00 02/17/20 10:15 Chloride IVPB 250 mls 0800,2000 SANTI Administration Dextrose/Water 1,000 mls @ 50 mls/hr 02/16/20 12:11 02/17/20 10:15 D5w IV 1,000 mls .Q20H SANTI Administration Iron/Minerals/Multivitamins 1 tab 02/07/20 09:00 02/17/20 10:21 Multivitamin W/ Minerals 1 Tab PO Not Given DAILY SANTI Rosuvastatin Calcium 10 mg 01/28/20 21:00 02/16/20 20:23 Rosuvastatin 10 Mg Tab PO Not Given HS SANTI Sodium Chloride 10 ml 01/28/20 21:00 02/17/20 10:20 Flush - Normal Saline 10 Ml Syringe IVF Not Given Q12HR SANTI Sodium Chloride 10 ml 01/28/20 10:15 02/01/20 06:24 Flush - Normal Saline 10 Ml Syringe IVF 10 ml PRN PRN Administration Saline Flush Ziprasidone 10 mg 01/28/20 16:08 02/01/20 11:11 Ziprasidone 20 Mg Vial IM 10 mg Q2H PRN Administration Agitation - Exam General Appearance: ill appearing General - other findings: somnolent, non-verbal Eye: PERRL, anicteric sclera ENT: normocephalic atraumatic, dry oral mucosa Neck: supple, symmetric, no JVD, no thyromegaly, no lymphadenopathy Heart: RRR, no gallops, no rubs, normal peripheral pulses Heart - other findings: S1, S2 Respiratory: CTAB, no wheezes, no rales, no ronchi, normal chest expansion, no tachypnea Gastrointestinal: soft, non-tender, non-distended, normal bowel sounds, no palpable masses Extremities: no cyanosis, no clubbing, no edema Skin: normal turgor Neurological - other findings: non-verbal Musculoskeletal: generalized weakness Psychiatric: flat affect, somnolent, lethargic Hosp A/P (1) Sialadenitis Code(s): K11.20 - SIALOADENITIS, UNSPECIFIED Status: Acute Plan: Resolving, d/c IV abx, oral care (2) Acute metabolic encephalopathy Code(s): G93.41 - METABOLIC ENCEPHALOPATHY Status: Acute Plan: Persistent, multifactorial, d/c Valproic Acid, limit sedation/anxiolytics (3) Hypernatremia Code(s): E87.0 - HYPEROSMOLALITY AND HYPERNATREMIA Status: Acute (4) Seizures Code(s): R56.9 - UNSPECIFIED CONVULSIONS Status: Acute Plan: ? metabolic effect, d/c Valproic acid (5) Pelvic fracture Code(s): S32.9XXA - FRACTURE OF UNSP PARTS OF LUMBOSACRAL SPINE AND PELVIS, INIT Status: Acute Qualifiers: Encounter type: subsequent encounter Pelvic bone location: pubis Fracture type: closed Laterality: right Plan: Non-operative mgmt (6) Dementia Code(s): F03.90 - UNSPECIFIED DEMENTIA WITHOUT BEHAVIORAL DISTURBANCE Status: Chronic Qualifiers: Dementia type: Alzheimer's disease Plan: Advanced - Plan plan discussed w/ family, PT/OT, oncology social worker, DVT proph w/SCDs Consults: Palliative Care Continue supportive mgmt D/C Depakote OOB with PT, not working with PT currently states approval for SNF at [place] Decrease D5NS @ 50ml/h Nutritional support with PPN Trial of clear liquids, aspirated with liquids Family undecided about hospice option Consider swing bed option D/C Unasyn/Vancomycin
[2020-02-17] MEDS ORDERED: hydrALAZINE 20 MG/ML VIAL SLOW IVP PRN (18:13)
[2020-02-17] MEDS: Clopidogrel Bisulfate 75 MG TAB PO SCH (19:16)
[2020-02-17] MEDS: Rosuvastatin 10 MG TAB PO SCH (19:16)
[2020-02-18] MEDS: Dextrose 5% in Water 1,000 ML IV SCH (01:28)
--- NOTE | 2020-02-18 11:55 | PDOC.HOSPP ---
- Subjective Encounter Date: 02/18/20 Encounter Time: 11:45 Subjective: f/u for severe deconditioning/AMS/dysphagia/dementia receiving PPN. Family undecided on pursuing hospice care and pt unable to transition to SNF due to inability to take po intake. No new events reported. - Objective Vital Signs & Weight: Vital Signs (12 hours) Temp Pulse Resp BP BP Pulse Ox 02/18/20 08:00 99 02/18/20 07:12 98.0 F 73 18 167/67 H 100 02/18/20 06:00 166/50 H Weight Admit Weight 131 lb 9.6 oz Weight 138 lb 7 oz I&O: 02/17/20 02/18/20 02/19/20 06:59 06:59 06:59 Intake Total 1700 2450 Balance 1700 2450 Result Diagrams: 02/15/20 07:12 02/14/20 12:27 Hospitalist ROS - Medication Medications: Active Medications Generic Name Dose Route Start Last Admin Trade Name Freq PRN Reason Stop Dose Admin Acetaminophen 325 mg 02/11/20 11:47 02/11/20 13:08 Acetaminophen 325 Mg Suppository [place] 325 mg Q4H PRN Administration Headache/Fever or Pain Clopidogrel Bisulfate 75 mg 01/27/20 21:00 02/17/20 19:16 Clopidogrel Bisulfate 75 Mg Tab PO Not Given HS SANTI Hydralazine HCl 20 mg 02/17/20 18:13 02/17/20 18:45 Hydralazine 20 Mg/Ml Vial SLOW IVP 20 mg Q4H PRN Administration SBP>170 Amino Acids/Electrolytes/Dextrose 1,000 mls @ 100 mls/hr 02/10/20 11:15 02/17/20 12:02 Clinimix E 4.25/5 IV 1,000 mls INF SANTI Administration Dextrose/Water 1,000 mls @ 50 mls/hr 02/16/20 12:11 02/18/20 01:28 D5w IV 1,000 mls .Q20H SANTI Administration Iron/Minerals/Multivitamins 1 tab 02/07/20 09:00 02/17/20 10:21 Multivitamin W/ Minerals 1 Tab PO Not Given DAILY SANTI Rosuvastatin Calcium 10 mg 01/28/20 21:00 02/17/20 19:16 Rosuvastatin 10 Mg Tab PO Not Given HS SANTI Sodium Chloride 10 ml 01/28/20 21:00 02/17/20 19:17 Flush - Normal Saline 10 Ml Syringe IVF Not Given Q12HR SANTI Sodium Chloride 10 ml 01/28/20 10:15 02/01/20 06:24 Flush - Normal Saline 10 Ml Syringe IVF 10 ml PRN PRN Administration Saline Flush Ziprasidone 10 mg 01/28/20 16:08 02/01/20 11:11 Ziprasidone 20 Mg Vial IM 10 mg Q2H PRN Administration Agitation - Exam General Appearance: ill appearing General - other findings: non-verbal, occasional grimace Eye: PERRL, anicteric sclera ENT: normocephalic atraumatic, dry oral mucosa Neck: supple, symmetric, no JVD, no thyromegaly, no lymphadenopathy Heart: RRR, no gallops, no rubs, normal peripheral pulses Heart - other findings: S1, S2 Respiratory: CTAB, no wheezes, no rales, no ronchi, normal chest expansion, no tachypnea Gastrointestinal: soft, non-tender, non-distended, normal bowel sounds, no palpable masses, no guarding, no rigidity Extremities: no cyanosis, no clubbing, no edema Skin: normal turgor Neurological - other findings: non-verbal, randomly moves extremities, not following commands Musculoskeletal: generalized weakness, diffuse muscle atrophy Psychiatric: somnolent, lethargic Hosp A/P (1) Sialadenitis Code(s): K11.20 - SIALOADENITIS, UNSPECIFIED Status: Acute Plan: Supportive mgmt, oral care, hydration (2) Acute metabolic encephalopathy Code(s): G93.41 - METABOLIC ENCEPHALOPATHY Status: Acute Plan: Persistent and multifactorial process, likely large component of dementia (3) Hypernatremia Code(s): E87.0 - HYPEROSMOLALITY AND HYPERNATREMIA Status: Acute Plan: Resolved (4) Seizures Code(s): R56.9 - UNSPECIFIED CONVULSIONS Status: Acute Plan: Likely metabolic process contributing initially, no recurrence noted, Depakote d/c'd (5) Pelvic fracture Code(s): S32.9XXA - FRACTURE OF UNSP PARTS OF LUMBOSACRAL SPINE AND PELVIS, INIT Status: Acute Qualifiers: Encounter type: subsequent encounter Pelvic bone location: pubis Fracture type: closed Laterality: right Plan: Non-operative mgmt (6) Dementia Code(s): F03.90 - UNSPECIFIED DEMENTIA WITHOUT BEHAVIORAL DISTURBANCE Status: Chronic Qualifiers: Dementia type: Alzheimer's disease Plan: Appears advanced and likely end-stage - Plan plan discussed w/ family, PT/OT, social work supervisor, DVT proph w/SCDs Consults: Palliative Care Continue supportive mgmt D/C Depakote OOB with PT, not working with PT currently [facility] approval for SNF at [place] D5NS @ 50ml/h Nutritional support with PPN Aspirated with liquids Family undecided about hospice option Considering swing bed option likely in [place] D/C Unasyn/Vancomycin
[2020-02-18] MEDS: Multivitamin W/ Minerals 1 TAB PO SCH (12:53)
[2020-02-18] MEDS: Clopidogrel Bisulfate 75 MG TAB PO SCH (19:18)
[2020-02-18] MEDS: Rosuvastatin 10 MG TAB PO SCH (19:19)
[2020-02-19] MEDS: Dextrose 5% in Water 1,000 ML IV SCH (00:55)
[2020-02-19] MEDS: Multivitamin W/ Minerals 1 TAB PO SCH (10:40)
[2020-02-19] MEDS: D5W-AA 4.25% with LYTES 1,000 ML IV SCH (13:57)
--- NOTE | 2020-02-19 16:09 | PDOC.HOSPP ---
- Subjective Encounter Date: 02/19/20 Encounter Time: 16:07 Subjective: Mr. Ocampo was seen today in follow-up of encephalopathy, and poor oral intake. He is awake but will not answer questions or speak. - Objective Vital Signs & Weight: Vital Signs (12 hours) Temp Pulse Resp BP Pulse Ox 02/19/20 09:15 100 02/19/20 07:10 98.3 F 72 22 H 145/78 H 100 Weight Admit Weight 131 lb 9.6 oz Weight 138 lb 7 oz I&O: 02/18/20 02/19/20 02/20/20 06:59 06:59 06:59 Intake Total 2450 950 Balance 2450 950 Result Diagrams: 02/15/20 07:12 02/14/20 12:27 Hospitalist ROS - Medication Medications: Active Medications Generic Name Dose Route Start Last Admin Trade Name Freq PRN Reason Stop Dose Admin Acetaminophen 325 mg 02/11/20 11:47 02/11/20 13:08 Acetaminophen 325 Mg Suppository ID 325 mg Q4H PRN Administration Headache/Fever or Pain Clopidogrel Bisulfate 75 mg 01/27/20 21:00 02/18/20 19:18 Clopidogrel Bisulfate 75 Mg Tab PO Not Given HS SANTI Hydralazine HCl 20 mg 02/17/20 18:13 02/17/20 18:45 Hydralazine 20 Mg/Ml Vial SLOW IVP 20 mg Q4H PRN Administration SBP>170 Amino Acids/Electrolytes/Dextrose 1,000 mls @ 100 mls/hr 02/10/20 11:15 02/19/20 13:57 Clinimix E 4.25/5 IV 1,000 mls INF SANTI Administration Dextrose/Water 1,000 mls @ 50 mls/hr 02/16/20 12:11 02/19/20 00:55 D5w IV Not Given .Q20H SANTI Iron/Minerals/Multivitamins 1 tab 02/07/20 09:00 02/19/20 10:40 Multivitamin W/ Minerals 1 Tab PO Not Given DAILY SANTI Rosuvastatin Calcium 10 mg 01/28/20 21:00 02/18/20 19:19 Rosuvastatin 10 Mg Tab PO Not Given HS SANTI Sodium Chloride 10 ml 01/28/20 21:00 02/19/20 10:40 Flush - Normal Saline 10 Ml Syringe IVF Not Given Q12HR SANTI Sodium Chloride 10 ml 01/28/20 10:15 02/01/20 06:24 Flush - Normal Saline 10 Ml Syringe IVF 10 ml PRN PRN Administration Saline Flush Ziprasidone 10 mg 01/28/20 16:08 02/01/20 11:11 Ziprasidone 20 Mg Vial IM 10 mg Q2H PRN Administration Agitation - Exam General Appearance: ill appearing (thin and frail) Eye: PERRL, anicteric sclera Heart: RRR, no murmur, no gallops, no rubs, normal peripheral pulses Respiratory: CTAB, no wheezes, no rales, no ronchi, normal chest expansion, no tachypnea, normal percussion Gastrointestinal: soft, non-tender, non-distended, normal bowel sounds, no palpable masses, no hepatomegaly Extremities: no cyanosis, no edema Hosp A/P (1) Acute metabolic encephalopathy Code(s): G93.41 - METABOLIC ENCEPHALOPATHY Status: Acute (2) Sialadenitis Code(s): K11.20 - SIALOADENITIS, UNSPECIFIED Status: Acute (3) Dementia Code(s): F03.90 - UNSPECIFIED DEMENTIA WITHOUT BEHAVIORAL DISTURBANCE Status: Chronic Qualifiers: Dementia type: Alzheimer's disease (4) HTN (hypertension) Code(s): I10 - ESSENTIAL (PRIMARY) HYPERTENSION Status: Chronic Qualifiers: Hypertension type: essential hypertension Qualified Code(s): I10 - Essential (primary) hypertension - Plan * Encephalopathy- ? etiology- may be in part due to underlying dementia * Poor oral intake- continue to encourage oral intake * Awaiting placement
[2020-02-19] MEDS: Rosuvastatin 10 MG TAB PO SCH (19:11)
[2020-02-19] MEDS: Clopidogrel Bisulfate 75 MG TAB PO SCH (19:11)
[2020-02-20] MEDS: Dextrose 5% in Water 1,000 ML IV SCH ×2 (00:28→16:54)
[2020-02-20] MEDS: D5W-AA 4.25% with LYTES 1,000 ML IV SCH ×2 (00:29→21:03)
[2020-02-20] MEDS: Multivitamin W/ Minerals 1 TAB PO SCH (09:22)
--- NOTE | 2020-02-20 17:20 | PDOC.HOSPP ---
- Subjective Encounter Date: 02/20/20 Encounter Time: 17:12 Subjective: Mr. Ocampo was seen today in follow-up of altered mental status and failure to thrive. there has been no significant change. - Objective Vital Signs & Weight: Vital Signs (12 hours) Temp Pulse Resp BP Pulse Ox 02/20/20 08:00 100 02/20/20 07:27 97.9 F 65 16 129/59 L 100 Weight Admit Weight 131 lb 9.6 oz Weight 138 lb 7 oz I&O: 02/19/20 02/20/20 02/21/20 06:59 06:59 06:59 Intake Total 950 2300 1200 Balance 950 2300 1200 Result Diagrams: 02/15/20 07:12 02/14/20 12:27 Hospitalist ROS - Medication Medications: Active Medications Generic Name Dose Route Start Last Admin Trade Name Freq PRN Reason Stop Dose Admin Acetaminophen 325 mg 02/11/20 11:47 02/11/20 13:08 Acetaminophen 325 Mg Suppository [place] 325 mg Q4H PRN Administration Headache/Fever or Pain Clopidogrel Bisulfate 75 mg 01/27/20 21:00 02/19/20 19:11 Clopidogrel Bisulfate 75 Mg Tab PO Not Given HS SANTI Hydralazine HCl 20 mg 02/17/20 18:13 02/17/20 18:45 Hydralazine 20 Mg/Ml Vial SLOW IVP 20 mg Q4H PRN Administration SBP>170 Amino Acids/Electrolytes/Dextrose 1,000 mls @ 100 mls/hr 02/10/20 11:15 02/20/20 00:29 Clinimix E 4.25/5 IV 1,000 mls INF SANTI Administration Dextrose/Water 1,000 mls @ 50 mls/hr 02/16/20 12:11 02/20/20 16:54 D5w IV Not Given .Q20H SANTI Iron/Minerals/Multivitamins 1 tab 02/07/20 09:00 02/20/20 09:22 Multivitamin W/ Minerals 1 Tab PO Not Given DAILY SANTI Rosuvastatin Calcium 10 mg 01/28/20 21:00 02/19/20 19:11 Rosuvastatin 10 Mg Tab PO Not Given HS SANTI Sodium Chloride 10 ml 01/28/20 21:00 02/20/20 09:22 Flush - Normal Saline 10 Ml Syringe IVF Not Given Q12HR SANTI Sodium Chloride 10 ml 01/28/20 10:15 02/01/20 06:24 Flush - Normal Saline 10 Ml Syringe IVF 10 ml PRN PRN Administration Saline Flush Ziprasidone 10 mg 01/28/20 16:08 02/01/20 11:11 Ziprasidone 20 Mg Vial IM 10 mg Q2H PRN Administration Agitation - Exam Eye: PERRL, anicteric sclera Heart: RRR, no murmur, no gallops, no rubs, normal peripheral pulses Respiratory: CTAB, no wheezes, no rales, no ronchi, normal chest expansion, no tachypnea, normal percussion Gastrointestinal: soft, non-tender, non-distended, normal bowel sounds, no palpable masses, no hepatomegaly Extremities: no cyanosis, no edema Hosp A/P (1) Acute metabolic encephalopathy Code(s): G93.41 - METABOLIC ENCEPHALOPATHY Status: Acute (2) Sialadenitis Code(s): K11.20 - SIALOADENITIS, UNSPECIFIED Status: Acute (3) Dementia Code(s): F03.90 - UNSPECIFIED DEMENTIA WITHOUT BEHAVIORAL DISTURBANCE Status: Chronic Qualifiers: Dementia type: Alzheimer's disease (4) HTN (hypertension) Code(s): I10 - ESSENTIAL (PRIMARY) HYPERTENSION Status: Chronic Qualifiers: Hypertension type: essential hypertension Qualified Code(s): I10 - Essential (primary) hypertension - Plan * No new recommendations * Continue PPN * Encephalopathy- ? etiology- may be in part due to underlying dementia * Poor oral intake- continue to encourage oral intake * HTN- blood pressure is a bit labile- will monitor, and titrate medications as neeed * Awaiting placement
[2020-02-20] MEDS: Rosuvastatin 10 MG TAB PO SCH (21:05)
[2020-02-20] MEDS: Clopidogrel Bisulfate 75 MG TAB PO SCH (21:05)
[2020-02-21] MEDS: D5W-AA 4.25% with LYTES 1,000 ML IV SCH ×2 (05:33→18:17)
[2020-02-21] MEDS: Multivitamin W/ Minerals 1 TAB PO SCH (08:10)
[2020-02-21] MEDS: Dextrose 5% in Water 1,000 ML IV SCH (12:12)
--- NOTE | 2020-02-21 13:17 | PDOC.HOSPP ---
- Subjective Encounter Date: 02/21/20 Encounter Time: 13:10 Subjective: Mr. Ocampo was seen today in follow-up of altered mental status. He is still confused and lethargic. - Objective Vital Signs & Weight: Vital Signs (12 hours) Temp Pulse Resp BP Pulse Ox 02/21/20 08:00 100 02/21/20 07:45 98.1 F 58 L 20 120/67 100 Weight Admit Weight 131 lb 9.6 oz Weight 138 lb 7 oz I&O: 02/20/20 02/21/20 02/22/20 06:59 06:59 06:59 Intake Total 2300 2400 Balance 2300 2400 Result Diagrams: 02/15/20 07:12 02/14/20 12:27 Hospitalist ROS - Medication Medications: Active Medications Generic Name Dose Route Start Last Admin Trade Name Freq PRN Reason Stop Dose Admin Acetaminophen 325 mg 02/11/20 11:47 02/11/20 13:08 Acetaminophen 325 Mg Suppository [place] 325 mg Q4H PRN Administration Headache/Fever or Pain Clopidogrel Bisulfate 75 mg 01/27/20 21:00 02/20/20 21:05 Clopidogrel Bisulfate 75 Mg Tab PO Not Given HS SANTI Hydralazine HCl 20 mg 02/17/20 18:13 02/17/20 18:45 Hydralazine 20 Mg/Ml Vial SLOW IVP 20 mg Q4H PRN Administration SBP>170 Amino Acids/Electrolytes/Dextrose 1,000 mls @ 100 mls/hr 02/10/20 11:15 02/21/20 05:33 Clinimix E 4.25/5 IV 1,000 mls INF SANTI Administration Dextrose/Water 1,000 mls @ 50 mls/hr 02/16/20 12:11 02/21/20 12:12 D5w IV Not Given .Q20H SANTI Iron/Minerals/Multivitamins 1 tab 02/07/20 09:00 02/21/20 08:10 Multivitamin W/ Minerals 1 Tab PO Not Given DAILY SANTI Rosuvastatin Calcium 10 mg 01/28/20 21:00 02/20/20 21:05 Rosuvastatin 10 Mg Tab PO Not Given HS SANTI Sodium Chloride 10 ml 01/28/20 21:00 02/21/20 08:10 Flush - Normal Saline 10 Ml Syringe IVF Not Given Q12HR SANTI Sodium Chloride 10 ml 01/28/20 10:15 02/01/20 06:24 Flush - Normal Saline 10 Ml Syringe IVF 10 ml PRN PRN Administration Saline Flush Ziprasidone 10 mg 01/28/20 16:08 02/01/20 11:11 Ziprasidone 20 Mg Vial IM 10 mg Q2H PRN Administration Agitation - Exam Eye: PERRL, anicteric sclera Heart: RRR, no murmur, no gallops, no rubs, normal peripheral pulses Respiratory: CTAB, no wheezes, no rales, no ronchi, normal chest expansion Gastrointestinal: soft, non-tender, non-distended, normal bowel sounds, no palpable masses, no hepatomegaly Extremities: no cyanosis, no edema Hosp A/P (1) Acute metabolic encephalopathy Code(s): G93.41 - METABOLIC ENCEPHALOPATHY Status: Acute (2) Sialadenitis Code(s): K11.20 - SIALOADENITIS, UNSPECIFIED Status: Acute (3) Dementia Code(s): F03.90 - UNSPECIFIED DEMENTIA WITHOUT BEHAVIORAL DISTURBANCE Status: Chronic Qualifiers: Dementia type: Alzheimer's disease (4) HTN (hypertension) Code(s): I10 - ESSENTIAL (PRIMARY) HYPERTENSION Status: Chronic Qualifiers: Hypertension type: essential hypertension Qualified Code(s): I10 - Essential (primary) hypertension - Plan * Encephalopathy- he continues to be confused and lethargic * His is at the bedside, and we discussed his medical condition * She is still interested in continuing PPN and receiving palliative care for her * Will place a PICC line so he can receive PPN for a few weeks * Continue PPN * HTN- blood pressure is a bit labile- will monitor, and titrate medications as neeed * Awaiting placement
--- NOTE | 2020-02-21 15:50 | SPC ---
Left upper extremity PICC placement sonographic guided HISTORY: Malnutrition. FINDINGS: After obtaining informed consent, left upper extremity was prepped and draped in usual ster ile fashion. Sonographic survey showed that clot was present throughout the noncompressible cephalic vein. Sterile technique, buffered local anesthesia, sonographic guidance, and a 22-gauge needle were used t o carefully access the left brachial vein. Standard technique was used to place the tip of a 5 [place] dual-lumen PICC so that the tip lies at the level of the superior vena cava. Catheter was flus hed and secured externally. Patient tolerated the procedure well and was returned in unchanged condition. Fluoroscopy time 0 seconds. IMPRESSION : Left upper extremity PICC is ready for use. Thrombosed left cephalic vein.
[2020-02-21] MEDS: Clopidogrel Bisulfate 75 MG TAB PO SCH (20:15)
[2020-02-21] MEDS: Rosuvastatin 10 MG TAB PO SCH (20:16)
[2020-02-22] MEDS: D5W-AA 4.25% with LYTES 1,000 ML IV SCH ×2 (04:32→15:33)
[2020-02-22] MEDS: Dextrose 5% in Water 1,000 ML IV SCH (08:55)
[2020-02-22] MEDS: Multivitamin W/ Minerals 1 TAB PO SCH (08:56)
[2020-02-22 09:33] LABS: #Basophils 0.1 thou/uL (0.0-0.2); #Eosinphils 0.2 thou/uL (0.0-0.7); #Lymphocytes 1.3 thou/uL (1.20-3.40); #Monocytes 0.9 thou/uL (0.11-0.59); #Neutrophils 6.4 thou/uL (1.40-6.50); %Basophils 0.8 % (0.0-1.0); %Lymphocytes 14.7 % (21.0-51.0); %Monocytes 10.4 % (0.0-10.0); Hemoglobin 9.7 g/dL (14.0-18.0); Mean Corpuscular HGB CONC 32.7 g/dL (32.0-36.0); Mean Corpuscular Volume 91.8 fL (78.0-98.0); Mean Platelet Volume 7.6 fL (7.4-10.4); Platelet Count 230 thou/uL (130-400); RBC Distribution Width 11.4 % (11.5-14.5); Red Blood Cell (RBC) Count 3.24 mill/uL (4.70-6.10); White Blood Cell (WBC) Count 8.8 thou/uL (4.8-10.8)
[2020-02-22 09:53] LABS: Anion Gap 8 mmol/L (10-20); BUN (Urea Nitrogen) 81 mg/dL (8.4-25.7); Calc. Creatinine Clearance 43 mL/min (70-130); Calcium 7.5 mg/dL (7.8-10.44); Carbon Dioxide 25 mmol/L (23-31); Chloride 110 mmol/L (98-107); Estimated GFR-MDRD 59; Glucose 96 mg/dL (83-110); Potassium 5.2 mmol/L (3.5-5.1); Sodium 138 mmol/L (136-145)
[2020-02-22] MEDS ORDERED: cloNIDine 0.1mg/24 Hour PATCH TD SCH (12:21)
--- NOTE | 2020-02-22 12:21 | PDOC.HOSPP ---
- Subjective Encounter Date: 02/22/20 Encounter Time: 12:19 Subjective: Mr. Ocampo was seen today in follow-up of metabolic encephalopathy. He does appear more active today. His says he tried to say a few words to her. - Objective Vital Signs & Weight: Vital Signs (12 hours) Temp Pulse Pulse Resp BP BP Pulse Ox 02/22/20 10:32 101 H 181/70 H 02/22/20 08:00 100 02/22/20 07:45 97.4 F L 62 20 173/56 H 100 Pulse Ox 02/22/20 10:32 96 02/22/20 08:00 02/22/20 07:45 Weight Admit Weight 131 lb 9.6 oz Weight 138 lb 7 oz I&O: 02/21/20 02/22/20 02/23/20 06:59 06:59 06:59 Intake Total 2400 2300 Balance 2400 2300 Result Diagrams: 02/22/20 09:00 02/22/20 09:00 Hospitalist ROS - Medication Medications: Active Medications Generic Name Dose Route Start Last Admin Trade Name Freq PRN Reason Stop Dose Admin Acetaminophen 325 mg 02/11/20 11:47 02/11/20 13:08 Acetaminophen 325 Mg Suppository [place] 325 mg Q4H PRN Administration Headache/Fever or Pain Clopidogrel Bisulfate 75 mg 01/27/20 21:00 02/21/20 20:15 Clopidogrel Bisulfate 75 Mg Tab PO Not Given HS SANTI Hydralazine HCl 20 mg 02/17/20 18:13 02/17/20 18:45 Hydralazine 20 Mg/Ml Vial SLOW IVP 20 mg Q4H PRN Administration SBP>170 Amino Acids/Electrolytes/Dextrose 1,000 mls @ 100 mls/hr 02/10/20 11:15 02/22/20 04:32 Clinimix E 4.25/5 IV 1,000 mls INF SANTI Administration Dextrose/Water 1,000 mls @ 50 mls/hr 02/16/20 12:11 02/22/20 08:55 D5w IV Not Given .Q20H SANTI Iron/Minerals/Multivitamins 1 tab 02/07/20 09:00 02/22/20 08:56 Multivitamin W/ Minerals 1 Tab PO Not Given DAILY SANTI Rosuvastatin Calcium 10 mg 01/28/20 21:00 02/21/20 20:16 Rosuvastatin 10 Mg Tab PO Not Given HS SANTI Sodium Chloride 10 ml 01/28/20 21:00 02/22/20 08:56 Flush - Normal Saline 10 Ml Syringe IVF Not Given Q12HR SANTI Sodium Chloride 10 ml 01/28/20 10:15 02/01/20 06:24 Flush - Normal Saline 10 Ml Syringe IVF 10 ml PRN PRN Administration Saline Flush Ziprasidone 10 mg 01/28/20 16:08 02/01/20 11:11 Ziprasidone 20 Mg Vial IM 10 mg Q2H PRN Administration Agitation - Exam Eye: PERRL, anicteric sclera Heart: RRR, no murmur, no gallops, no rubs, normal peripheral pulses Respiratory: CTAB, no wheezes, no rales, no ronchi, normal chest expansion, no tachypnea Gastrointestinal: soft, non-tender, non-distended, normal bowel sounds, no palpable masses, no hepatomegaly Extremities: no cyanosis, no edema Hosp A/P (1) Acute metabolic encephalopathy Code(s): G93.41 - METABOLIC ENCEPHALOPATHY Status: Acute (2) Sialadenitis Code(s): K11.20 - SIALOADENITIS, UNSPECIFIED Status: Acute (3) Dementia Code(s): F03.90 - UNSPECIFIED DEMENTIA WITHOUT BEHAVIORAL DISTURBANCE Status: Chronic Qualifiers: Dementia type: Alzheimer's disease (4) HTN (hypertension) Code(s): I10 - ESSENTIAL (PRIMARY) HYPERTENSION Status: Chronic Qualifiers: Hypertension type: essential hypertension Qualified Code(s): I10 - Essential (primary) hypertension - Plan * Encephalopathy- he continues to be confused but is less lethargic * She is still interested in continuing PPN and receiving palliative care for her * PICC line has been placed * Continue PPN * HTN- blood pressure is a bit labile- but mostly elevated- his oral intake is not reliable- will therefore place a catapres patch * Awaiting placement
[2020-02-22] MEDS: Clopidogrel Bisulfate 75 MG TAB PO SCH (23:16)
[2020-02-22] MEDS: Rosuvastatin 10 MG TAB PO SCH (23:16)
[2020-02-23] MEDS: D5W-AA 4.25% with LYTES 1,000 ML IV SCH ×2 (01:37→14:49)
[2020-02-23] MEDS: Dextrose 5% in Water 1,000 ML IV SCH (07:35)
[2020-02-23] MEDS: Multivitamin W/ Minerals 1 TAB PO SCH (09:31)
--- NOTE | 2020-02-23 09:32 | PDOC.HOSPP ---
- Subjective Encounter Date: 02/23/20 Encounter Time: 09:30 Subjective: Mr. Ocampo was seen today in follow-up of metabolic encephalopathy. He has exhibited much change. - Objective Vital Signs & Weight: Vital Signs (12 hours) Temp Pulse Resp BP Pulse Ox 02/23/20 07:35 97.6 F 59 L 16 130/75 98 Weight Admit Weight 131 lb 9.6 oz Weight 138 lb 7 oz I&O: 02/22/20 02/23/20 02/24/20 06:59 06:59 06:59 Intake Total 2300 2400 Balance 2300 2400 Result Diagrams: 02/22/20 09:00 02/22/20 09:00 Hospitalist ROS - Medication Medications: Active Medications Generic Name Dose Route Start Last Admin Trade Name Freq PRN Reason Stop Dose Admin Acetaminophen 325 mg 02/11/20 11:47 02/11/20 13:08 Acetaminophen 325 Mg Suppository [place] 325 mg Q4H PRN Administration Headache/Fever or Pain Clonidine 0.1 mg 02/22/20 12:21 02/22/20 13:34 Clonidine 0.1mg/24 Hour Patch TD 0.1 mg Q7DAYS SANTI Administration Clopidogrel Bisulfate 75 mg 01/27/20 21:00 02/22/20 23:16 Clopidogrel Bisulfate 75 Mg Tab PO Not Given HS SANTI Hydralazine HCl 20 mg 02/17/20 18:13 02/17/20 18:45 Hydralazine 20 Mg/Ml Vial SLOW IVP 20 mg Q4H PRN Administration SBP>170 Amino Acids/Electrolytes/Dextrose 1,000 mls @ 100 mls/hr 02/10/20 11:15 02/23/20 01:37 Clinimix E 4.25/5 IV 1,000 mls INF SANTI Administration Dextrose/Water 1,000 mls @ 50 mls/hr 02/16/20 12:11 02/23/20 07:35 D5w IV Not Given .Q20H SANTI Iron/Minerals/Multivitamins 1 tab 02/07/20 09:00 02/22/20 08:56 Multivitamin W/ Minerals 1 Tab PO Not Given DAILY SANTI Rosuvastatin Calcium 10 mg 01/28/20 21:00 02/22/20 23:16 Rosuvastatin 10 Mg Tab PO Not Given HS SANTI Sodium Chloride 10 ml 01/28/20 21:00 02/22/20 23:26 Flush - Normal Saline 10 Ml Syringe IVF Not Given Q12HR SANTI Sodium Chloride 10 ml 01/28/20 10:15 02/01/20 06:24 Flush - Normal Saline 10 Ml Syringe IVF 10 ml PRN PRN Administration Saline Flush Ziprasidone 10 mg 01/28/20 16:08 02/01/20 11:11 Ziprasidone 20 Mg Vial IM 10 mg Q2H PRN Administration Agitation - Exam Eye: PERRL, anicteric sclera Heart: RRR, no murmur, no gallops, no rubs, normal peripheral pulses Respiratory: CTAB, no wheezes, no rales, no ronchi, normal chest expansion Gastrointestinal: soft, non-tender, non-distended, normal bowel sounds, no palpable masses Extremities: no cyanosis, no edema Hosp A/P (1) Acute metabolic encephalopathy Code(s): G93.41 - METABOLIC ENCEPHALOPATHY Status: Acute (2) Sialadenitis Code(s): K11.20 - SIALOADENITIS, UNSPECIFIED Status: Acute (3) Dementia Code(s): F03.90 - UNSPECIFIED DEMENTIA WITHOUT BEHAVIORAL DISTURBANCE Status: Chronic Qualifiers: Dementia type: Alzheimer's disease (4) HTN (hypertension) Code(s): I10 - ESSENTIAL (PRIMARY) HYPERTENSION Status: Chronic Qualifiers: Hypertension type: essential hypertension Qualified Code(s): I10 - Essential (primary) hypertension - Plan * Encephalopathy- he continues to be confused but is less lethargic * She is still interested in continuing PPN and receiving palliative care for her * PICC line has been placed * He is stable for discharge to [facility]
[2020-02-23] MEDS: Clopidogrel Bisulfate 75 MG TAB PO SCH (19:42)
[2020-02-23] MEDS: Rosuvastatin 10 MG TAB PO SCH (19:42)
[2020-02-24] MEDS: Dextrose 5% in Water 1,000 ML IV SCH ×2 (00:39→18:40)
--- NOTE | 2020-02-24 01:15 | CON ---
DATE OF CONSULTATION: 02/23/2020 REASON FOR CONSULTATION: Poor oral intake, altered mental status, needs a gastrostomy tube for nutritional support. HISTORY OF PRESENT ILLNESS: Mr. Donavon Ocampo is an 84-year-old male, brought to the hospital by family because of altered mental status and recurrent falls and new-onset seizures. The patient was hospitalized almost a couple of weeks ago. The patient is being placed in a alf for long-term care. Apparently, alf requested for a PEG tube placement before they can accept the patient. The patient is in the room, however there is no family available. He is dry with dry mucous membranes and skin. He is also very drowsy and does not really answer any questions. Most of the history was obtained by admitting history and physical. MEDICAL ILLNESS: 1. Hypertension. 2. Hyperlipidemia. 3. Migraine. 4. History of new-onset seizures and also recurrent falls. 5. He has history of diabetes mellitus and dementia. SOCIAL HISTORY: He does not smoke or drink alcohol. ALLERGIES: CODEINE. MEDICATION LIST: Reviewed. REVIEW OF SYSTEMS: Ten-point system review. Not able to obtain as he is sleepy and not able to answer any questions now. PHYSICAL EXAMINATION: GENERAL: He is a thin built individual, who is not answering any questions. Does not open his eyes, but no respond to any questions. VITAL SIGNS: Afebrile, pulse is 59, and blood pressure 130/70. HEENT: Conjunctivae clear. NECK: Supple. CARDIOVASCULAR SYSTEM: Normal heart sounds. LUNGS: Clear to auscultation. ABDOMEN: Soft. Abdomen is nondistended. There is no fullness over the epigastric area. There are no masses. No organomegaly. Bowel sounds normal. LABORATORY DATA: The most recent lab data: CBC; WBC 8800, hemoglobin 9.7, hematocrit 29.8, platelet count 230,000, polymorphs 72, lymphocytes 14, monocytes 10. Chemistry panel; sodium 138, potassium 5.2, chloride 110, bicarb 25, BUN , glucose 96, and calcium 7.5. CLINICAL IMPRESSION: An 84-year-old male with hypertension, diabetes mellitus, history of dementia, hospitalized because of altered mental status and seizures. His oral intake is very poor. The alf PEG tube. I did talk to his next of kin, who has power of deputy attorney general, Ms. Car, phone number is [phone]. I had explained her about the need for the G-tube placement. She is agreeable. Hopefully, it can be done tomorrow. Job ID: [id number]
[2020-02-24 03:49] LABS: SARS-CoV-2 MS2 Positive; SARS-CoV-2 N Gene Negative; SARS-CoV-2 S Gene Negative; SARS-CoV-2 by NAA Not Detected (NotDetected); SARS-CoV-2 orf1ab Negative
[2020-02-24] MEDS: Multivitamin W/ Minerals 1 TAB PO SCH (07:20)
[2020-02-24] MEDS ORDERED: Ondansetron HCl/PF 4 MG/2 ML Vial IVP PRN (07:21)
--- NOTE | 2020-02-24 09:37 | OP ---
DATE OF PROCEDURE: 02/24/2020 SCRUMMASTER SURGEON: None. PROCEDURE PERFORMED: EGD with PEG tube placement. INDICATION FOR PROCEDURE: 1. Malnutrition. 2. Dementia. MEDICATIONS: 1. Ancef 2 g IV. 2. See Anesthesia record. FINDINGS: After discussion of the risks, benefits, and alternatives of the procedure, informed consent was obtained and verified. Pre-endoscopic cardiopulmonary examination was satisfactory. Time-out was performed before sedation was achieved. Sedation was achieved with Anesthesia assistance in the endoscopy unit. The patient was left in the supine position. A Pentax adult upper endoscope was placed into the oropharynx and passed through the cricopharyngeus under direct visualization. The esophageal mucosa appeared normal throughout. The endoscope was advanced into the stomach. Forward and retroflexed views of the entire gastric mucosa were obtained. The gastric mucosa appeared normal. The endoscope was advanced through the pylorus and into the first and second portions of the duodenum. There was some mild to moderate duodenal erythema and friability, but no ulcers or erosions. The endoscope was withdrawn back into the stomach. Using one-to-one pressure and transillumination methods, a suitable site for PEG tube placement was located in the left upper quadrant. The site was prepped and draped in a sterile fashion. It was anesthetized with subcutaneous lidocaine. A 1 cm vertical incision was made. The introducer needle and catheter were then introduced transcutaneously into the gastric lumen. The needle was removed and the blue wire was advanced through the catheter and grasped with a snare through the endoscope. The wire was then withdrawn out of the mouth and a 20-Tu[place] PEG tube was affixed. It was then pulled through into position in the usual fashion without difficulty. The endoscope was then passed back down into the stomach for examination of the internal bumper, which appeared to be in good position with no complication. The endoscope was withdrawn. The external bumper clamp and ports were then affixed to the tube as well as an abdominal binder. The external bumper was placed at a distance of 3 cm. The patient tolerated the procedure well. There were no immediate postprocedure complications. IMPRESSION: 1. Successful placement of 20-Tu[place] PEG tube to the left upper quadrant with external bumper at 3 cm. 2. Duodenitis. RECOMMENDATION: 1. Flush tube regularly. 2. Can use PEG tube for medications now. 3. Can use PEG tube for feeds in 4 hours. 4. Daily PPI for the next month. 5. I will plan to come by tomorrow to check on the PEG site and most likely loosen the external bumper a bit. Job ID: [id number]
[2020-02-24] MEDS ORDERED: PROPOFOL 200 MG/20 ML VIAL ONE (10:14)
[2020-02-24] MEDS ORDERED: Pantoprazole 40 MG GRANULES PACKET PER TUBE SCH (10:15)
--- NOTE | 2020-02-24 14:50 | PDOC.HOSPP ---
- Subjective Encounter Date: 02/24/20 Encounter Time: 14:48 Subjective: Mr. Ocampo was seen today in follow-up of encephalopathy, and failure to thrive. He has not shown significant improvement. He has returned from PEG tube placement. - Objective Vital Signs & Weight: Vital Signs (12 hours) Temp Pulse Resp BP Pulse Ox 02/24/20 07:54 97.7 F 60 16 153/71 H 97 Weight Admit Weight 131 lb 9.6 oz Weight 138 lb 7 oz I&O: 02/23/20 02/24/20 02/25/20 06:59 06:59 06:59 Intake Total 2400 2700 Balance 2400 2700 Result Diagrams: 02/22/20 09:00 02/22/20 09:00 Hospitalist ROS - Medication Medications: Active Medications Generic Name Dose Route Start Last Admin Trade Name Freq PRN Reason Stop Dose Admin Acetaminophen 325 mg 02/11/20 11:47 02/11/20 13:08 Acetaminophen 325 Mg Suppository [place] 325 mg Q4H PRN Administration Headache/Fever or Pain Clonidine 0.1 mg 02/22/20 12:21 02/22/20 13:34 Clonidine 0.1mg/24 Hour Patch TD 0.1 mg Q7DAYS SANTI Administration Clopidogrel Bisulfate 75 mg 01/27/20 21:00 02/23/20 19:42 Clopidogrel Bisulfate 75 Mg Tab PO Not Given HS SANTI Hydralazine HCl 20 mg 02/17/20 18:13 02/17/20 18:45 Hydralazine 20 Mg/Ml Vial SLOW IVP 20 mg Q4H PRN Administration SBP>170 Amino Acids/Electrolytes/Dextrose 1,000 mls @ 100 mls/hr 02/10/20 11:15 02/23/20 14:49 Clinimix E 4.25/5 IV 1,000 mls INF SANTI Administration Dextrose/Water 1,000 mls @ 50 mls/hr 02/16/20 12:11 02/24/20 00:39 D5w IV 1,000 mls .Q20H SANTI Administration Iron/Minerals/Multivitamins 1 tab 02/07/20 09:00 02/24/20 07:20 Multivitamin W/ Minerals 1 Tab PO Not Given DAILY SANTI Rosuvastatin Calcium 10 mg 01/28/20 21:00 02/23/20 19:42 Rosuvastatin 10 Mg Tab PO Not Given HS SANTI Sodium Chloride 10 ml 01/28/20 21:00 02/24/20 08:56 Flush - Normal Saline 10 Ml Syringe IVF Not Given Q12HR SANTI Sodium Chloride 10 ml 01/28/20 10:15 02/01/20 06:24 Flush - Normal Saline 10 Ml Syringe IVF 10 ml PRN PRN Administration Saline Flush Ziprasidone 10 mg 01/28/20 16:08 02/01/20 11:11 Ziprasidone 20 Mg Vial IM 10 mg Q2H PRN Administration Agitation - Exam Eye: PERRL, anicteric sclera ENT: dry oral mucosa ENT - other findings: poor dentition Heart: RRR, no murmur, no gallops, no rubs, normal peripheral pulses Respiratory: CTAB, no wheezes, no rales, no ronchi, normal chest expansion Gastrointestinal: soft, non-distended, normal bowel sounds Extremities: no cyanosis, no edema Hosp A/P (1) Acute metabolic encephalopathy Code(s): G93.41 - METABOLIC ENCEPHALOPATHY Status: Acute (2) Sialadenitis Code(s): K11.20 - SIALOADENITIS, UNSPECIFIED Status: Acute (3) Dementia Code(s): F03.90 - UNSPECIFIED DEMENTIA WITHOUT BEHAVIORAL DISTURBANCE Status: Chronic Qualifiers: Dementia type: Alzheimer's disease (4) HTN (hypertension) Code(s): I10 - ESSENTIAL (PRIMARY) HYPERTENSION Status: Chronic Qualifiers: Hypertension type: essential hypertension Qualified Code(s): I10 - Essential (primary) hypertension - Plan * Encephalopathy- he continues to be confused * Poor oral intake due to poor cognition- he is s/p PEG tube placement * Once tube feeds started, can wean him off PPN * Anticipate transfer to custodial soon.
[2020-02-24] MEDS: D5W-AA 4.25% with LYTES 1,000 ML IV SCH (17:17)
[2020-02-25] MEDS: Clopidogrel Bisulfate 75 MG TAB PO SCH ×2 (01:27→20:37)
[2020-02-25] MEDS: Rosuvastatin 10 MG TAB PO SCH ×2 (01:27→20:37)
[2020-02-25] MEDS: Pantoprazole 40 MG GRANULES PACKET PER TUBE SCH (08:31)
[2020-02-25] MEDS: Multivitamin W/ Minerals 1 TAB PO SCH (08:31)
--- NOTE | 2020-02-25 08:43 | PRG ---
DATE OF SERVICE: 02/25/2020 SUBJECTIVE: Tube feeds were started. Mr. Ocampo appears to be tolerating them well. Abdominal binder is on. He remains unresponsive. OBJECTIVE: VITAL SIGNS: Temperature 98.6, pulse 92, blood pressure 143/56, and 94% oxygen saturation on room air. GENERAL: Somnolent, appears to be comfortable, reacting to internal stimuli, contracted. HEART: Regular rate and rhythm. LUNGS: Clear to auscultation bilaterally. ABDOMEN: Flat. Abdominal binder briefly removed and PEG site examined. No surrounding erythema or edema. Some minimal serosanguineous discharge around the tube. I loosened the external bumper slightly to 3.5 cm, which should be a good distance for him, and I replaced the abdominal binder. EXTREMITIES: No peripheral edema. LABORATORY STUDIES: No new labs today. ASSESSMENT AND PLAN: 1. Malnutrition. 2. Oropharyngeal dysphagia. 3. Dementia. 4. Status post successful PEG tube placement yesterday 02/24/2020. He appears to be tolerating the tube feeds well. The PEG site looks good. I loosened the external bumper slightly to 3.5 cm, which should be a good distance for him. GI will sign off. Please call back anytime with questions or concerns. Job ID: [id number]
[2020-02-25 09:06] LABS: #Basophils 0.1 thou/uL (0.0-0.2); #Eosinphils 0.2 thou/uL (0.0-0.7); #Lymphocytes 1.3 thou/uL (1.20-3.40); #Monocytes 0.8 thou/uL (0.11-0.59); #Neutrophils 6.7 thou/uL (1.40-6.50); %Basophils 0.6 % (0.0-1.0); %Eosinophils 2.3 % (0.0-10.0); %Lymphocytes 14.7 % (21.0-51.0); %Monocytes 8.5 % (0.0-10.0); %Neutrophils 73.9 % (42.0-75.0); Hemoglobin 9.9 g/dL (14.0-18.0); Mean Corpuscular HGB CONC 32.9 g/dL (32.0-36.0); Mean Corpuscular Hemoglobin 30.6 pg (27.0-31.0); Mean Platelet Volume 7.8 fL (7.4-10.4); Platelet Count 207 thou/uL (130-400); RBC Distribution Width 11.8 % (11.5-14.5); Red Blood Cell (RBC) Count 3.24 mill/uL (4.70-6.10)
[2020-02-25 09:25] LABS: Anion Gap 14 mmol/L (10-20); BUN (Urea Nitrogen) 75 mg/dL (8.4-25.7); Calc. Creatinine Clearance 36 mL/min (70-130); Calcium 7.6 mg/dL (7.8-10.44); Carbon Dioxide 17 mmol/L (23-31); Chloride 107 mmol/L (98-107); Estimated GFR-MDRD 49; Glucose 89 mg/dL (83-110); Potassium 5.8 mmol/L (3.5-5.1); Sodium 132 mmol/L (136-145)
--- NOTE | 2020-02-25 14:58 | PDOC.HOSPP ---
- Subjective Encounter Date: 02/25/20 Encounter Time: 14:56 Subjective: Mr. Ocampo was seen today in follow-up of metabolic encephalopathy. He is essentially unchanged. Still confused, eyes closed most of the time, and speech is difficult to understand. - Objective Vital Signs & Weight: Vital Signs (12 hours) Temp Pulse Resp BP Pulse Ox 02/25/20 07:42 98.6 F 92 16 143/56 H 94 L Weight Admit Weight 131 lb 9.6 oz Weight 138 lb 7 oz I&O: 02/24/20 02/25/20 02/26/20 06:59 06:59 06:59 Intake Total 2700 2850 237 Balance 2700 2850 237 Result Diagrams: 02/25/20 08:41 02/25/20 08:41 Hospitalist ROS - Medication Medications: Active Medications Generic Name Dose Route Start Last Admin Trade Name Freq PRN Reason Stop Dose Admin Acetaminophen 325 mg 02/11/20 11:47 02/11/20 13:08 Acetaminophen 325 Mg Suppository [place] 325 mg Q4H PRN Administration Headache/Fever or Pain Clonidine 0.1 mg 02/22/20 12:21 02/22/20 13:34 Clonidine 0.1mg/24 Hour Patch TD 0.1 mg Q7DAYS SANTI Administration Clopidogrel Bisulfate 75 mg 01/27/20 21:00 02/25/20 01:27 Clopidogrel Bisulfate 75 Mg Tab PO Not Given HS SANTI Hydralazine HCl 20 mg 02/17/20 18:13 02/17/20 18:45 Hydralazine 20 Mg/Ml Vial SLOW IVP 20 mg Q4H PRN Administration SBP>170 Dextrose/Water 1,000 mls @ 50 mls/hr 02/16/20 12:11 02/24/20 18:40 D5w IV 1,000 mls .Q20H SANTI Administration Iron/Minerals/Multivitamins 1 tab 02/07/20 09:00 02/25/20 08:31 Multivitamin W/ Minerals 1 Tab PO 1 tab DAILY SANTI Administration Pantoprazole Sodium 40 mg 02/25/20 09:00 02/25/20 08:31 Pantoprazole 40 Mg Granules Packet PER TUBE 40 mg DAILY SANTI Administration Rosuvastatin Calcium 10 mg 01/28/20 21:00 02/25/20 01:27 Rosuvastatin 10 Mg Tab PO Not Given HS SANTI Sodium Chloride 10 ml 10/30/20 21:00 02/25/20 08:31 Flush - Normal Saline 10 Ml Syringe IVF Not Given Q12HR SANTI Sodium Chloride 10 ml 01/28/20 10:15 02/01/20 06:24 Flush - Normal Saline 10 Ml Syringe IVF 10 ml PRN PRN Administration Saline Flush Ziprasidone 10 mg 01/28/20 16:08 02/01/20 11:11 Ziprasidone 20 Mg Vial IM 10 mg Q2H PRN Administration Agitation - Exam Eye: PERRL, anicteric sclera Heart: RRR, no murmur Respiratory: CTAB (+ coarse breath sounds bilaterally), no wheezes, no rales, no ronchi Gastrointestinal: soft, normal bowel sounds, no palpable masses Extremities: no cyanosis, no edema Hosp A/P (1) Acute metabolic encephalopathy Code(s): G93.41 - METABOLIC ENCEPHALOPATHY Status: Acute (2) Sialadenitis Code(s): K11.20 - SIALOADENITIS, UNSPECIFIED Status: Acute (3) Dementia Code(s): F03.90 - UNSPECIFIED DEMENTIA WITHOUT BEHAVIORAL DISTURBANCE Status: Chronic Qualifiers: Dementia type: Alzheimer's disease (4) HTN (hypertension) Code(s): I10 - ESSENTIAL (PRIMARY) HYPERTENSION Status: Chronic Qualifiers: Hypertension type: essential hypertension Qualified Code(s): I10 - Essential (primary) hypertension - Plan * Encephalopathy- felt to be Delirium in Dementia. ( No evidence of infection, and MRI and EEG were unremarkable) Patient's does not feel that the Dementia plays a significant role, but she did admit to me that he was being evaluated for Dementia a few years ago, by Dr. Salas. * Poor oral intake due to poor cognition- he is s/p PEG tube placement, and is tolerating tube feeds so far * Will Discontinue PPN * HTN- blood pressure is stable * Sialadenitis- seen by ENT during this admission, and out patient work-ip r ecommended * Awaiting transfer to [facility]
[2020-02-25] MEDS: Dextrose 5% in Water 1,000 ML IV SCH (16:18)
[2020-02-25] MEDS: Ziprasidone 20 MG VIAL IM PRN (20:34)
[2020-02-26] MEDS: Pantoprazole 40 MG GRANULES PACKET PER TUBE SCH (09:06)
[2020-02-26] MEDS: Multivitamin W/ Minerals 1 TAB PO SCH (09:06)
[2020-02-26 10:18] LABS: Anion Gap 15 mmol/L (10-20); BUN (Urea Nitrogen) 69 mg/dL (8.4-25.7); Calc. Creatinine Clearance 34 mL/min (70-130); Calcium 7.5 mg/dL (7.8-10.44); Carbon Dioxide 23 mmol/L (23-31); Chloride 105 mmol/L (98-107); Estimated GFR-MDRD 46; Glucose 77 mg/dL (83-110); Potassium 4.8 mmol/L (3.5-5.1); Sodium 138 mmol/L (136-145)
[2020-02-26] MEDS: Dextrose 5% in Water 1,000 ML IV SCH (10:35)
--- NOTE | 2020-02-26 13:04 | PDOC.HOSPP ---
- Subjective Encounter Date: 02/26/20 Encounter Time: 11:20 Subjective: Patient appears quite confused. No acute events noted overnight. He is afebrile and normotensive. - Objective Vital Signs & Weight: Vital Signs (12 hours) Temp Pulse Resp BP Pulse Ox 02/26/20 08:00 98.1 F 69 20 119/68 96 Weight Admit Weight 131 lb 9.6 oz Weight 138 lb 7 oz I&O: 02/25/20 02/26/20 02/27/20 06:59 06:59 06:59 Intake Total 2850 948 474 Balance 2850 948 474 Result Diagrams: 02/25/20 08:41 02/26/20 09:14 Hospitalist ROS - Medication Medications: Active Medications Generic Name Dose Route Start Last Admin Trade Name Freq PRN Reason Stop Dose Admin Acetaminophen 325 mg 02/11/20 11:47 02/11/20 13:08 Acetaminophen 325 Mg Suppository CA 325 mg Q4H PRN Administration Headache/Fever or Pain Clonidine 0.1 mg 02/22/20 12:21 02/22/20 13:34 Clonidine 0.1mg/24 Hour Patch TD 0.1 mg Q7DAYS SANTI Administration Clopidogrel Bisulfate 75 mg 01/27/20 21:00 02/25/20 20:37 Clopidogrel Bisulfate 75 Mg Tab PO 75 mg HS SANTI Administration Hydralazine HCl 20 mg 02/17/20 18:13 02/17/20 18:45 Hydralazine 20 Mg/Ml Vial SLOW IVP 20 mg Q4H PRN Administration SBP>170 Dextrose/Water 1,000 mls @ 50 mls/hr 02/16/20 12:11 02/26/20 10:35 D5w IV Not Given .Q20H SANTI Iron/Minerals/Multivitamins 1 tab 02/07/20 09:00 02/26/20 09:06 Multivitamin W/ Minerals 1 Tab PO 1 tab DAILY SANTI Administration Pantoprazole Sodium 40 mg 02/25/20 09:00 02/26/20 09:06 Pantoprazole 40 Mg Granules Packet PER TUBE 40 mg DAILY SANTI Administration Rosuvastatin Calcium 10 mg 01/28/20 21:00 02/25/20 20:37 Rosuvastatin 10 Mg Tab PO 10 mg HS SANTI Administration Sodium Chloride 10 ml 01/28/20 21:00 02/26/20 09:11 Flush - Normal Saline 10 Ml Syringe IVF 10 ml Q12HR SANTI Administration Sodium Chloride 10 ml 01/28/20 10:15 02/01/20 06:24 Flush - Normal Saline 10 Ml Syringe IVF 10 ml PRN PRN Administration Saline Flush Ziprasidone 10 mg 01/28/20 16:08 02/25/20 20:34 Ziprasidone 20 Mg Vial IM 10 mg Q2H PRN Administration Agitation - Exam General Appearance: NAD, ill appearing Eye: PERRL ENT: normocephalic atraumatic Neck: supple Heart: RRR, normal peripheral pulses Respiratory: CTAB, normal chest expansion Gastrointestinal: soft, normal bowel sounds Neurological: no focal deficits Psychiatric: not oriented Hosp A/P - Plan (1) Acute metabolic encephalopathy Code(s): G93.41 - METABOLIC ENCEPHALOPATHY Status: Acute (2) Sialadenitis Code(s): K11.20 - SIALOADENITIS, UNSPECIFIED Status: Acute (3) Dementia Code(s): F03.90 - UNSPECIFIED DEMENTIA WITHOUT BEHAVIORAL DISTURBANCE Status: Chronic Qualifiers: Dementia type: Alzheimer's disease (4) HTN (hypertension) Code(s): I10 - ESSENTIAL (PRIMARY) HYPERTENSION Status: Chronic Qualifiers: Hypertension type: essential hypertension Qualified Code(s): I10 - Essential (primary) hypertension - Plan * Encephalopathy- felt to be Delirium in Dementia. ( No evidence of infection, and MRI and EEG were unremarkable) Patient's does not feel that the Dementia plays a significant role, but she did admit to me that he was being evaluated for Dementia a few years ago, by Dr. Salas. * Poor oral intake due to poor cognition- s/p PEG tube placement. * Off PPN * HTN- blood pressure is stable * Sialadenitis- seen by ENT --plan to follow-up as an outpatient. * * Plan for placement versus home health. * PRATIMA HURST.
[2020-02-26] MEDS: Rosuvastatin 10 MG TAB PO SCH (20:24)
[2020-02-26] MEDS: Clopidogrel Bisulfate 75 MG TAB PO SCH (20:24)
[2020-02-27] MEDS: Pantoprazole 40 MG GRANULES PACKET PER TUBE SCH (08:23)
[2020-02-27] MEDS: Multivitamin W/ Minerals 1 TAB PO SCH (08:23)
[2020-02-27] MEDS ORDERED: hydrALAZINE 20 MG/ML VIAL SLOW IVP PRN (10:07)
[2020-02-27] MEDS ORDERED: Sodium Chloride 0.9% 250 ML IV PRN (10:15)
--- NOTE | 2020-02-27 13:15 | PDOC.HOSPP ---
- Subjective Encounter Date: 02/27/20 Encounter Time: 10:20 Subjective: Patient is again and looks quite somnolent he is a mouth breather. His blood pressure is on the low side. - Objective Vital Signs & Weight: Vital Signs (12 hours) Temp Pulse Resp BP Pulse Ox 02/27/20 07:30 97.9 F 68 20 115/60 100 Weight Admit Weight 131 lb 9.6 oz Weight 138 lb 7 oz I&O: 02/26/20 02/27/20 02/28/20 06:59 06:59 06:59 Intake Total 948 1809 624 Balance 948 1809 624 Result Diagrams: 02/25/20 08:41 02/26/20 09:14 Hospitalist ROS - Medication Medications: Active Medications Generic Name Dose Route Start Last Admin Trade Name Freq PRN Reason Stop Dose Admin Acetaminophen 325 mg 02/11/20 11:47 02/11/20 13:08 Acetaminophen 325 Mg Suppository SC 325 mg Q4H PRN Administration Headache/Fever or Pain Clopidogrel Bisulfate 75 mg 01/27/20 21:00 02/26/20 20:24 Clopidogrel Bisulfate 75 Mg Tab PO 75 mg HS SANTI Administration Hydralazine HCl 20 mg 02/17/20 18:13 02/17/20 18:45 Hydralazine 20 Mg/Ml Vial SLOW IVP 20 mg Q4H PRN Administration SBP>170 Iron/Minerals/Multivitamins 1 tab 02/07/20 09:00 02/27/20 08:23 Multivitamin W/ Minerals 1 Tab PO 1 tab DAILY SANTI Administration Pantoprazole Sodium 40 mg 02/25/20 09:00 02/27/20 08:23 Pantoprazole 40 Mg Granules Packet PER TUBE 40 mg DAILY SANTI Administration Rosuvastatin Calcium 10 mg 01/28/20 21:00 02/26/20 20:24 Rosuvastatin 10 Mg Tab PO 10 mg HS SANTI Administration Sodium Chloride 10 ml 01/28/20 21:00 02/27/20 08:23 Flush - Normal Saline 10 Ml Syringe IVF 10 ml Q12HR SANTI Administration Sodium Chloride 10 ml 01/28/20 10:15 02/01/20 06:24 Flush - Normal Saline 10 Ml Syringe IVF 10 ml PRN PRN Administration Saline Flush Ziprasidone 10 mg 01/28/20 16:08 02/25/20 20:34 Ziprasidone 20 Mg Vial IM 10 mg Q2H PRN Administration Agitation - Exam General Appearance: ill appearing General - other findings: Somnolent and lethargic Eye: PERRL ENT: normocephalic atraumatic Neck: supple Heart: RRR, normal peripheral pulses Respiratory: CTAB, normal chest expansion Gastrointestinal: soft, normal bowel sounds Neurological: no focal deficits Musculoskeletal: generalized weakness Psychiatric: not oriented Hosp A/P - Plan (1) Acute metabolic encephalopathy Code(s): G93.41 - METABOLIC ENCEPHALOPATHY Status: Acute (2) Sialadenitis Code(s): K11.20 - SIALOADENITIS, UNSPECIFIED Status: Acute (3) Dementia Code(s): F03.90 - UNSPECIFIED DEMENTIA WITHOUT BEHAVIORAL DISTURBANCE Status: Chronic Qualifiers: Dementia type: Alzheimer's disease (4) HTN (hypertension) Code(s): I10 - ESSENTIAL (PRIMARY) HYPERTENSION Status: Chronic Qualifiers: Hypertension type: essential hypertension Qualified Code(s): I10 - Essential (primary) hypertension - Plan * Encephalopathy- felt to be Delirium in Dementia. ( No evidence of infection, and MRI and EEG were unremarkable) Patient's does not feel that the Dementia plays a significant role, but she did admit to me that he was being evaluated for Dementia a few years ago, by Dr. Salas. * Poor oral intake due to poor cognition- s/p PEG tube placement. * Off PPN * HTN- blood pressure is stable * Sialadenitis- seen by ENT --plan to follow-up as an outpatient. * * Plan for placement versus home health. * PRATIMA HURST.
[2020-02-27] MEDS: Rosuvastatin 10 MG TAB PO SCH (19:37)
[2020-02-27] MEDS: Clopidogrel Bisulfate 75 MG TAB PO SCH (19:43)
[2020-02-28] MEDS: Multivitamin W/ Minerals 1 TAB PO SCH (09:39)
[2020-02-28] MEDS: Pantoprazole 40 MG GRANULES PACKET PER TUBE SCH (09:39)
[2020-02-28] MEDS: Amlodipine 5 MG TAB PO SCH ×2 (09:44→20:10)
[2020-02-28] MEDS: Ziprasidone 20 MG VIAL IM PRN (09:52)
--- NOTE | 2020-02-28 13:11 | PDOC.DS.DS ---
Provider - Provider Date of Admission: 01/26/20 15:22 Admitting Provider: Johnathan Santo MD Primary Care Physician: Elda Camacho Course - Hospital Course Hospital Course: 84-year-old male presented (1) Acute metabolic encephalopathy Code(s): G93.41 - METABOLIC ENCEPHALOPATHY Status: Acute (2) Sialadenitis Code(s): K11.20 - SIALOADENITIS, UNSPECIFIED Status: Acute (3) Dementia Code(s): F03.90 - UNSPECIFIED DEMENTIA WITHOUT BEHAVIORAL DISTURBANCE Status: Chronic Qualifiers: Dementia type: Alzheimer's disease (4) HTN (hypertension) Code(s): I10 - ESSENTIAL (PRIMARY) HYPERTENSION Status: Chronic Qualifiers: Hypertension type: essential hypertension Qualified Code(s): I10 - Essential (primary) hypertension * Encephalopathy- felt to be Delirium in Dementia. ( No evidence of infection, and MRI and EEG were unremarkable) - evaluated for Dementia a few years ago, by Dr. Salas. * Poor oral intake due to poor cognition- s/p PEG tube placement. * HTN- blood pressure is stable * Sialadenitis- seen by ENT --plan to follow-up as an outpatient. * * Patient is transferred due to nursing facility hemodynamically in stable condition. * DN AR. * Discharge time over 30 minutes Resuscitation Status: 01/26/20 16:45 Resuscitation Status Routine Resuscitation Status: DNAR: NO Resuscitation Discussed with: His wishes discussed with . - Labs Lab Results: 02/25/20 08:41 02/26/20 09:14 Microbiology - Entire Visit 02/09/20 18:59 Venous blood - Left Hand Blood Culture - Final NO GROWTH IN 5 DAYS 02/09/20 18:59 Venous blood - Right Arm Blood Culture - Final NO GROWTH IN 5 DAYS 02/10/20 17:12 Urine clean catch Urine Culture - Final NO GROWTH AT 48 HOURS - Physical Exam Vitals: Vital Signs (12 hours) Temp Pulse Resp BP Pulse Ox 02/28/20 09:44 80 02/28/20 08:00 100 02/28/20 07:15 98.2 F 80 16 162/68 H 100 Weight Admit Weight 131 lb 9.6 oz Weight 138 lb 7 oz Physical Exam: The patient was seen and examined on the day of discharge. Patient appears nontoxic. No acute events noted overnight. Plan - Discharge Medications Prescriptions: cloNIDine [[id number]-GKZ-9 Patch] 0.1 mg TD Q7DAYS #1 patch Home Medications: Medication Instructions Recorded Confirmed Type Clopidogrel Bisulfate [Clopidogrel] 1 tab PO HS 08/03/16 01/27/20 History Rosuvastatin [Crestor] 10 mg PO HS 01/27/20 01/27/20 History cloNIDine [Dpgzcrfs-SSK-2 Patch] 0.1 mg TD Q7DAYS #1 patch 02/22/20 Rx Allergies: codeine Allergy (Verified 06/21/19 15:33) - Discharge Instructions Discharge Instructions:: PCP in 1 week Follow w.. Dr. Salas in 2 to 3 wks Follow with ENT in 2 to 3 weeks Tube feeding with Jevity 1.5 peter/ml, 5 cans per day, 150 cc of water flushes bef ore and after bolus feeds PT evaluation and treatment Activity:: Activity as Tolerated - Follow up Plan Referrals: Elda Camacho MD [Primary Care Provider] - 7 Days Disposition: HOME Quality - Care Measures CORE MEASURES:: N/A
[2020-02-28] MEDS: Rosuvastatin 10 MG TAB PO SCH (20:10)
[2020-02-28] MEDS: Clopidogrel Bisulfate 75 MG TAB PO SCH (20:10)
[2020-02-29] MEDS: Amlodipine 5 MG TAB PO SCH (09:26)
[2020-02-29] MEDS: Pantoprazole 40 MG GRANULES PACKET PER TUBE SCH (09:26)
[2020-02-29] MEDS: Multivitamin W/ Minerals 1 TAB PO SCH (09:26)
[2020-02-29 13:22] VITALS: BP 113/51; TEMP 97.7
== END 2020-02-29 11:55 | DRG 56 ==
LOC: ERS 12:49 → OBSVTOIN 15:22 → 2SE 15:22 → T4-A 02-03 17:41
PROVIDERS: ADMIT Student in an Organized Health Care Education/Training Program; ATTEND Internal Medicine
PROC: 02HV33Z Insertion of Infusion Device into Superior Vena Cava, Percutaneous Approach (ICD-10-PCS; principal; 2020-02-21)
PROC: B5181ZA Fluoroscopy of Superior Vena Cava using Low Osmolar Contrast, Guidance (ICD-10-PCS; 2020-02-21)
PROC: B548ZZA Ultrasonography of Superior Vena Cava, Guidance (ICD-10-PCS; 2020-02-21)
PROC: 0DH63UZ Insertion of Feeding Device into Stomach, Percutaneous Approach (ICD-10-PCS; 2020-02-24)
PROC: 3E0G76Z Introduction of Nutritional Substance into Upper GI, Via Natural or Artificial Opening (ICD-10-PCS; 2020-02-24)
DX: G30.9 Alzheimer's disease, unspecified (principal); G93.41 Metabolic encephalopathy; S32.591A Other specified fracture of right pubis, initial encounter for closed fracture; E44.0 Moderate protein-calorie malnutrition; Z68.1 Body mass index [BMI] 19.9 or less, adult; E87.0 Hyperosmolality and hypernatremia; Z66 Do not resuscitate; Z20.828 Contact with and (suspected) exposure to other viral communicable diseases; I10 Essential (primary) hypertension; E78.5 Hyperlipidemia, unspecified; G43.909 Migraine, unspecified, not intractable, without status migrainosus; K11.20 Sialoadenitis, unspecified; R56.9 Unspecified convulsions; F02.80 Dementia in other diseases classified elsewhere, unspecified severity, without behavioral disturbance, psychotic disturbance, mood disturbance, and anxiety; R13.12 Dysphagia, oropharyngeal phase; K11.5 Sialolithiasis; W19.XXXA Unspecified fall, initial encounter; E86.0 Dehydration; R63.8 Other symptoms and signs concerning food and fluid intake; H91.90 Unspecified hearing loss, unspecified ear; K29.80 Duodenitis without bleeding; E11.9 Type 2 diabetes mellitus without complications; K02.9 Dental caries, unspecified; I25.10 Atherosclerotic heart disease of native coronary artery without angina pectoris; Z88.5 Allergy status to narcotic agent
CPT/HCPCS: 36415; 36569; 70450; 70491; 70551; 71045; 72170; 80048; 80053; 80164; 80202; 80306; 81001; 82140; 82550; 82553; 82607; 83690; 83735; 83880; 84146; 84443; 84484; 85007; 85025; 85027; 87040; 87086; 87635; 90471; 90662; 90732; 93005; 95712; 95819; 95957; 96365; 96375; C1751; G0008; G0009; J0295; J0360; J0690; J1630; J1644; J1885; J1953; J2060; J2270; J2704; J3370; J3480; J3486; J3490; J7050; Q9967; U0003